=== PATIENT | female | born 2000 | race Caucasian/White ===

== ENCOUNTER 2024-01-10 10:53 | Emergency (ER) | payer MEDICARE, MEDICAID, SELFPAY ==
--- NOTE | ~2024-01-10 | US_ITS ---
Pelvic ultrasound. Clinical History: First trimester , pelvic pain, vaginal bleeding Technique: Realtime transabdominal and transvaginal scanning of the pelvis was performed. Color flow Doppler and Doppler spectral analysis were performed. Findings: The uterus is anteverted. The endometrial stripe has a thickness of 9 mm. There is a proba ble small intrauterine gestational sac, with estimated gestational age of 5 weeks [address] rage sac diameter of 0.47 cm. No well-defined pole or yolk sac seen.. The right ovary measures 2.7 x 1.7 x 2.3 cm. No significant right ovarian or adnexal mass is seen. The left ovary measures 2.3 x 1.3 x 1.6 cm. No significant left ovarian or adnexal mass is seen. There is no evidence of free fluid in the cul de sac. Impression: Early intrauterine gestational sac with estimated gestational age of 5 weeks 2 days, as detailed abov e. No visible pole, commensurate with the early gestational age. Reviewed, dictated and finalized at location . Impression: Early intrauterine gestational sac with estimated gestational age of 5 weeks 2 days, as detailed above. No visible pole, commensurate with the early ges tational age.
[2024-01-10 10:53] VITALS: BP 102/63; PULSE 68; RESP 14; TEMP 36.7; O2SAT 99
--- NOTE | 2024-01-10 11:25 | ED.ABDPAIN ---
HPI - Abdominal Pain General Chief Complaint: Abdominal Pain Stated Complaint: tt Time Seen by Provider: 01/10/24 11:04 History of Present Illness HPI narrative: 23 old female presents to the emergency department for evaluation for left upper quadrant pain and vaginal bleeding. Patient states she has a few weeks but has not yet had an ultrasound with . Patient states yesterday she was having a verbal altercation with her boyfriend and became emotionally upset. Patient states she had about 1 hour of vaginal bleeding yesterday but denies any current vaginal bleeding. Patient has left upper quadrant abdominal pain but denies any lower abdominal pain. Related Data Allergies Allergy/AdvReac Type Severity Reaction Status Date / Time No Known Allergies Allergy Verified 01/10/24 11:08 Review of Systems Review of Systems: All systems reviewed & are unremarkable except as noted in HPI and below Exam Narrative: APPEARANCE: Well appearing, no pain, no distress, well-nourished. HEAD: normocephalic, atraumatic. EYES: PERRLA/EOMI, conjunctivae clear. NOSE: Normal no drainage EARS:TMS clear with good light reflex. THROAT: Pharynx clear, no exudate. NECK: Supple. No adenopathy, no masses. RESPIRATORY: Airway patent, respirations nonlabored. Clear to auscultation bilaterally, no rales, rhonchi, wheezing. CARDIOVASCULAR: Regular rate and rhythm without murmurs rubs or gallops. ABDOMINAL: Soft, nontender, nondistended, normal bowel sounds MUSCULOSKELETAL: Moves all extremities. Strength/ROM intact, No edema, No calf tenderness. NEURO: Alert. Cranial nerves II through XII intact. Good gait. Good coordination SKIN: Warm, dry. Normal Color PSYCHIATRIC: Normal affect/mood. Course Vital Signs Vital signs: Vital Signs Temperature 98.1 F 01/10/24 10:53 Pulse Rate 68 01/10/24 10:53 Respiratory Rate 14 01/10/24 10:53 Blood Pressure 102/63 01/10/24 10:53 Pulse Oximetry 99 01/10/24 10:53 Oxygen Delivery Room Air 01/10/24 10:53 Temperature 98.1 F 01/10/24 10:53 Pulse Rate 80 01/10/24 12:54 Respiratory Rate 13 01/10/24 12:54 Blood Pressure 90/54 L 01/10/24 12:54 Pulse Oximetry 100 01/10/24 12:54 Oxygen Delivery Room Air 01/10/24 10:53 MDM - Abdominal Pain MDM Narrative Medical decision making narrative: 23-year-old female presented to the emergency department for evaluation for vaginal bleeding during early . Patient is approximately 5 weeks . Patient is afebrile but does have a leukocytosis of 13.5. Stable hemoglobin. Patient's blood type was A positive. UA was concerning for urinary tract infection and patient was started on Keflex. Differential Diagnosis Differential diagnosis: Likely endometriosis and other Lab Data Attestation: I reviewed the patient's lab results. 01/10/24 11:21 01/10/24 11:21 Labs: Lab Results 01/10/24 01/10/24 01/10/24 Range/Units 11:11 11:21 11:30 WBC 13.5 H (4.5-10.0) K/mm3 RBC 3.90 L (4.2-5.4) M/mm3 Hgb 13.1 (12.0-15.0) g/dL Hct 37.3 (37.0-47.0) % MCV 95.6 (80-100) fl MCH 33.6 (26-34) pg MCHC 35.1 (32-36) g/dl RDW 12.9 (11.5-14.5) % Plt Count 342 (150-375) k/mm3 MPV 9.3 (7.4-10.4) fl Immature Gran % (Auto) 0.4 (0-0.5) % Neut % (Auto) 86.0 H (45.5-73.1) % Lymph % (Auto) 7.3 L (18.3-44.2) % Dawes % (Auto) 5.7 (2.6-8.5) % Eos % (Auto) 0.3 (0-4.4) % Baso % (Auto) 0.3 (0.2-1.2) % Lymph # (Auto) 0.99 (0.9-3.2) K/mm3 Dawes # (Auto) 0.8 H (0.1-0.6) K/mm3 Eos # (Auto) 0.0 (0-0.3) K/mm3 Baso # (Auto) 0.0 (0.0-0.1) K/mm3 Abs Immat Gran (auto) 0.06 H (0.00-0.031) K/mm3 Absolute Neuts (auto) 11.6 H (1.3-6.7) K/mm3 Absolute Nucleated RBC 0.000 (0.0-0.012) K/mm3 Nucleated RBC % 0.0 (0.0-0.2) % Sodium 138 (137-145) mmol/L Potassium 3.0 L (3.4-5.0) mmol/L Chloride 104 (98
[2024-01-10] MEDS: ONDANSETRON INJ 4 MG/2 ML VIAL IV PUSH (11:27)
[2024-01-10] MEDS: SODIUM CHLORIDE 0.9% IV 1,000 ML 999 ML IV CONT (11:27)
[2024-01-10] MEDS: PANTOPRAZOLE SODIUM IV 40 MG VIAL IV PUSH (11:32)
[2024-01-10 11:36] LABS: Basophils Percent Auto 0.3 % (0.2-1.2); Eosinophils Percent Auto 0.3 % (0-4.4); Hematocrit 37.3 % (37.0-47.0); Hemoglobin 13.1 g/dL (12.0-15.0); Immature Granulocyte Absolute 0.06 K/mm3 (0.00-0.031); Immature Granulocyte Percent A 0.4 % (0-0.5); Lymphocytes Absolute Auto 0.99 K/mm3 (0.9-3.2); Lymphocytes Percent Auto 7.3 % (18.3-44.2); Mean Corpuscular HGB Conc 35.1 g/dl (32-36); Mean Corpuscular Hemoglobin 33.6 pg (26-34); Mean Corpuscular Volume 95.6 fl (80-100); Mean Platelet Volume 9.3 fl (7.4-10.4); Monocytes Absolute Auto 0.8 K/mm3 (0.1-0.6); Monocytes Percent Auto 5.7 % (2.6-8.5); Neutrophils Absolute Auto 11.6 K/mm3 (1.3-6.7); Platelet Count Result 342 k/mm3 (150-375); Red Cell Distribution Width 12.9 % (11.5-14.5); White Blood Count 13.5 K/mm3 (4.5-10.0)
[2024-01-10 11:41] LABS: Add Urine Microscopic? YES; Appearance Urine Turbid (Clear); Bacteria Urine 4+ /hpf; Bilirubin Urine 1+ (Negative); Blood Urine Trace (Negative); Color Urine Dark Yellow (Yellow); Glucose Urine UA Negative (Negative); Ketones Urine 3+ mg/dL (Negative); Leukocyte Esterase Ur Trace LEU/UL (Negative); Mucus Urine Present /lpf; Nitrate Urine Negative (Negative); Non Pathogenic Casts >20; Protein Urine 1+ mg/dL (Negative); RBC Urine 21-50 /hpf (0-2); Specific Grav Ur 1.033 (1.001-1.035); Squamous Epithelial Cell Urine Many /hpf (Few); WBC Urine 21-50 /hpf (0-3)
[2024-01-10 11:50] LABS: Alanine Aminotransferase 13 U/L (6-35); Albumin Level 4.9 g/dL (3.5-5.1); Alkaline Phosphatase 51 U/L (38-126); Anion Gap 15 mmol/L (4-12); Aspartate Amino Transferase 26 U/L (14-36); Blood Urea Nitrogen 12 mg/dL (7-17); Calcium 9.3 mg/dL (8.4-10.2); Carbon Dioxide 19 mmol/L (22-30); Chloride 104 mmol/L (98-107); Estimated Glomerular Filt Rate > 60; Glucose 95 mg/dL (65-110); Lactic Acid Reflex 1.6 mmol/L (0.7-2.0); Lipase 28 U/L (23-300); Sodium 138 mmol/L (137-145)
[2024-01-10 12:02] LABS: BEDSIDEPREGUCG Positive
[2024-01-10 12:54] VITALS: BP 90/54; PULSE 80; RESP 13; O2SAT 100
== END 2024-01-10 13:36 | disposition home or self-care (01) ==
PROVIDERS: Emergency Provider Emergency Medicine
DX: O20.9 Hemorrhage in early pregnancy, unspecified (principal); R82.998 Other abnormal findings in urine; Z3A.01 Less than 8 weeks gestation of pregnancy
CPT/HCPCS: 36415; 76801; 80053; 81001; 81025; 83605; 83690; 84702; 85025; 85461; 86850; 86900; 86901; 87086; 87088; 96361; 96374; 96375; 99284; J2405; J2470; J7030

== ENCOUNTER 2024-06-17 19:16 | Observation (INO) | payer MEDICARE, MEDICAID, SELFPAY ==
[2024-06-17] VITALS (27 sets, daily range): BP systolic 89–116; BP diastolic 45–70; PULSE 85–125; TEMP 37; O2SAT 97–100; BMI 21.7
--- OUTSIDE RECORDS SUMMARY | 2024-06-17 19:30 | XMS_ITS | CONTINUITY OF CARE DOCUMENT ---
Author Name lucio valdes Address Unknown Organization [facility] Address [address] [place] [address] Phone [phone] Care Team Providers Care Construction Inspector Name Role Phone Amparo Darden MD Unavailable Amparo Darden MD Unavailable INSURANCE PROVIDERS Payer name Policy type / Coverage type [place] red republican ID MED[place]ID [place] Medicaid [facility] Other [id number] [place] MEDICARE Medicare [id number]
--- NOTE | 2024-06-17 21:09 | OBADM ---
This patient, Roseann Mars, admitted to the OB room Labor/Delivery/Recovery 106 for observation. Patient/family oriented to hospital policies and general routines including ID bracelet, bed and alarms, visiting hours, pain management, procedures, bathroom and other care routines, personal items, smoking policy, room service/diet, and visiting hours. Patient/Family are encouraged to report perceived risks to care and to ask questions if they do not understand what they are told or what they should do.
[2024-06-17 21:10] LABS: Add Urine Microscopic? YES; Appearance Urine Clear (Clear); Bacteria Urine 1+ /hpf; Bilirubin Urine Negative (Negative); Blood Urine Negative (Negative); Color Urine Yellow (Yellow); Glucose Urine UA Negative (Negative); Ketones Urine 3+ mg/dL (Negative); Leukocyte Esterase Ur 1+ LEU/UL (Negative); Nitrate Urine Negative (Negative); Non Pathogenic Casts 0-2; Protein Urine Negative (Negative); RBC Urine 0-2 /hpf (0-2); Specific Grav Ur 1.011 (1.001-1.035); Squamous Epithelial Cell Urine Few /hpf (Few); Urobilinogen Urine 0.2 mg/dL (<2.0); pH Urine 6.5 (5.0-9.0)
[2024-06-17] MEDS: NITROFURANTOIN MONOHYD MACROCR 100 MG CAP PO (21:55)
[2024-06-17] MEDS: TERBUTALINE SULFATE 1 MG/ML VIAL 0.25 MG SUB-Q (21:56)
[2024-06-17] MEDS: LACTATED RINGERS 1,000 ML 125 ML IV CONT (21:57)
--- NOTE | 2024-07-21 21:16 | P.PNOB_ITS ---
OB - Triage/Final Diagnosis Visit Information Comments/Additional reasons for admission: I have assessed the risk for this patient, Roseann Mars, and determined that she would benefit from observation care. Evaluation Laboratory results: Laboratory Tests 06/17/24 20:58 Urine Color Yellow Urine Appearance Clear Urine pH 6.5 Ur Specific [place] 1.011 Urine Protein Negative Urine Glucose (UA) Negative Urine Ketones 3+ H Ur Blood (Man) Negative Urine Nitrate Negative Urine Bilirubin Negative Urine Urobilinogen 0.2 Leukocyte Esterase Rfl 1+ H Urine RBC 0-2 Urine WBC 6-10 H Ur Squamous Epith Cells Few Urine Bacteria 1+ H Urine Casts 0-2 Final Diagnosis (1) False labor: Code(s): O47.9 - False labor, unspecified Status: Acute
== END 2024-06-17 23:33 | disposition home or self-care (01) ==
PROVIDERS: Admitting Provider Obstetrics & Gynecology; Visit Provider Obstetrics & Gynecology
DX: O47.03 False labor before 37 completed weeks of gestation, third trimester (principal); Z3A.28 28 weeks gestation of pregnancy
CPT/HCPCS: 81001; 87086; 96372; A9270; G0378; G0379; J3105; J7120

== ENCOUNTER 2024-07-25 16:32 | Observation (INO) | payer MEDICARE, MEDICAID, SELFPAY ==
[2024-07-25] VITALS (53 sets, daily range): BP systolic 89–117; BP diastolic 44–72; PULSE 79–126; RESP 16; TEMP 36.5; O2SAT 93–99; BMI 20.6
[2024-07-25] MEDS: BETAMETHASONE SOD PHOS/ACETATE 30 MG/5 ML VIAL 12 MG IM (17:18)
[2024-07-25 17:28] LABS: Add Urine Microscopic? NO; Appearance Urine Clear (Clear); Bilirubin Urine Negative (Negative); Blood Urine Negative (Negative); Color Urine Yellow (Yellow); Glucose Urine UA Negative (Negative); Ketones Urine Negative (Negative); Leukocyte Esterase Ur Negative LEU/UL (Negative); Nitrate Urine Negative (Negative); Protein Urine Negative (Negative); Specific Grav Ur 1.009 (1.001-1.035); Urobilinogen Urine 0.2 mg/dL (<2.0)
--- NOTE | 2024-07-25 17:33 | OBADM ---
This patient, Roseann Mars, admitted to the OB room 117 for observation. Patient/family oriented to hospital policies and general routines including ID bracelet, bed and alarms, visiting hours, pain management, procedures, bathroom and other care routines, personal items, smoking policy, room service/diet, and visiting hours. Patient/Family are encouraged to report perceived risks to care and to ask questions if they do not understand what they are told or what they should do.
--- OUTSIDE RECORDS SUMMARY | 2024-07-25 17:36 | XMS_ITS | CONTINUITY OF CARE DOCUMENT ---
Author Name lucio valdes Address Unknown Organization [facility] Address [address] [place] [address] Phone [phone] Care Team Providers Care Behavioral Health Rn Name Role Phone Amparo Darden MD Unavailable [phone] Amparo Darden MD Unavailable [phone] INSURANCE PROVIDERS Payer name Policy type / Coverage type [place] red green party ID MED[place]ID [place] Medicaid [facility] Other [id number] [place] MED[place] Medicare [id number]
--- OUTSIDE RECORDS SUMMARY | 2024-07-25 17:36 | XMS_ITS | Continuity of Care Document ---
Author Organization [facility] Address [address] [place] [address] Assessment No assessment recorded. Plan of Treatment Reminders Order Date Submit Date Provider Last Modified By Organization Details Last Modified Time Details Appointments NST 2024 01:00P M NST SCHEDULE Not available Not available Not available U/S OB GROWTH 2024 01:30P M ULTRASOUND Not available Not available Not available FOLLOW UP 2024 02:00P Ulises DIANA MD Not available Not available Not available U/S OB BPP 2024 10:00A M ULTRASOUND Not available Not available Not available NST 2024 10:30A M NST SCHEDULE Not available Not available Not available OB ROUTINE 2024 11:00A Ulises DIANA MD Not available Not available Not available U/S OB BPP 2024 10:00A M ULTRASOUND Not available Not available Not available NST 2024 10:30A M NST SCHEDULE Not available Not available Not available OB ROUTINE 2024 11:00A Ulises DIANA MD Not available Not available Not available U/S OB BPP 2024 10:00A M ULTRASOUND Not available Not available Not available NST 2024 10:30A M NST SCHEDULE Not available Not available Not available OB ROUTINE 2024 11:00A Ulises DIANA MD Not available Not available Not available U/S OB BPP 2024 10:00A M ULTRASOUND Not available Not available Not available NST 2024 10:30A M NST SCHEDULE Not available Not available Not available OB ROUTINE 2024 11:00A M Candelaria DIANA MD Not available Not available Not available U/S OB BPP 2024 10:00A M ULTRASOUND Not available Not available Not available NST 2024 10:30A M NST SCHEDULE Not available Not available Not available OB ROUTINE 2024 11:00A M Candelaria DIANA MD Not available Not available Not available U/S OB BPP 2024 10:00A M ULTRASOUND Not available Not available Not available NST 2024 10:30A M NST SCHEDULE Not available Not available Not available OB ROUTINE 2024 11:00A Ulises DIANA MD Not available Not available Not available Lab None recorde d. Referral None recorde d. Procedures None recorde d. Surgeries None recorde d. Imaging non-str ess test 2024 025 [email or web address] [facility] [address], [place], [address], 07/25/2024 14:43:35 Medication Orders None recorde d. Patient TargetsNo targets recorded. Patient InstructionsNo instructions recorded. Reason for Referral None Reported. Results Created Date Observation Date Name Description Value Unit Range Abnormal Flag Note LastModifiedBy Organization Detail LastModifiedTime 05/02/20 24 05/02/2024 US, obste tric, 2nd or 3rd trime ster No observ ation record ed. [facility] [address], [place], [address], 05/02/2024 13:06:09 05/02/20 24 05/02/2024 US, obste tric, 2nd or 3rd trime ster No observ ation record ed. [email or web address] [address], [place], [address], 05/03/2024 09:25:25 06/18/19 25 06/18/2024 non-s tress test No observ ation record ed. [email or web address] [address], [place], [address], 06/19/2024 13:06:43 07/04/19 25 07/04/2024 US, obste tric, follo w-up No observ ation record ed. [email or web address] [facility] [address], [place], [address], 07/04/2024 12:07:16 07/04/19 25 07/04/2024 US, obste tric, follo w-up No observ ation record ed. [address], [place], [address], 07/05/2024 12:46:14 07/08/19 25 07/08/2024 non-s tress test No observ ation record ed. [address], [place], [address], 07/16/2024 15:52:02 07/10/19 25 07/10/2024 US, obste tric, bioph ysica l profi le + non-s tress test No observ ation record ed. [email or web address] [facility] [address], [place], [address], 07/10/2024 11:13:32 07/10/19 25 07/10/2024 US, obste tric, follo w-up No observ ation record ed. [email or web address] [address], [place], [address], 07/11/2024 09:31:09 07/12/19 25 07/10/2024 non-s tress test No observ ation record ed. [email or web address] [facility] [address], [place], [address], 07/12/2024 18:29:15 07/12/19 25 07/10/2024 non-s tress test No observ ation record ed. [email or web address] [facility] [address], [place], [address], 07/12/2024 18:29:51 07/19/19 25 07/18/2024 non-s tress test No observ ation record ed. [email or web address] [facility] [address], [place], [address], 07/18/2024 11:49:31 07/19/19 25 07/18/2024 US, obste tric, bioph ysica l profi le + non-s tress test No observ ation record ed. [email or web address] [facility] [address], [place], [address], 07/18/2024 15:30:06 07/19/19 25 07/18/2024 US, obste tric, follo w-up No observ ation record ed. [email or web address] [address], [place], [address], 07/19/2024 17:30:44 07/26/19 25 07/25/2024 non-s tress test No observ ation record ed. [email or web address] [facility] [address], [place], [address], 07/25/2024 14:39:24 07/26/19 25 07/25/2024 US, obste tric, bioph ysica l profi le + non-s tress test No observ ation record ed. [email or web address] [facility] [address], [place], [address], 07/25/2024 16:46:47 07/26/19 25 07/25/2024 US, obste tric, bioph ysica l profi le + non-s tress test No observ ation record ed. [email or web address] [address], [place], [address], 07/25/2024 15:13:46 Result Notes None recorded. Problems Name Problem SNOMED Code Status Onset Date Resolution Date Notes Provider Name and Address Organization Details Recorded Time 01625036 Active 2023 Sonia Brand null, [facility] 4 16:38:57 COVID-19 970512073 Active bASA daily, serial growth Olga Benitez null, [facility] 5 14:59:04 COVID-19 393294949 Active bASA daily, serial growth Olga Benitez null, [facility] 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 5 11:50:08 Problem Notes None recorded. Procedures Surgical History None recorded. Imaging Results Imaging Date Name Status LastModified by Organiz ation Details LastModified Time 07/25/2024 non-stress test completed [email or web address] [facility] [address], [place], [address], 07/25/2024 14:39:24 Procedure Notes None recorded. Medical Equipment None Reported. Allergies No known drug allergies Medications Name Sig Start Date Stop Date Status Note LastModified by Organization Details LastModified Time metronidazo le 0.75 % (37.5 mg/5 gram) vaginal gel Insert 1 applicato rful every day by vaginal route. 07/04 completed Not Available Not Available Not Available clobetasol 0.05 % topical cream APPLY A THIN LAYER TO THE AFFECTED AREA(S) BY TOPICAL ROUTE 2 TIMES PER DAY ; RUB IN GENTLY AND COMPLETEL Y 2024 active Not Available Not Available Not Avai lable ursodiol 300 mg capsule Take 1 capsule twice a day by oral route as directed. 2024 active Not Available Not Available Not Avai lable active Not Available Not Avai lable Not Available clobetasol 0.025 % topical cream APPLY A THIN LAYER TO THE AFFECTED AREA(S) BY TOPICAL ROUTE 2 TIMES PER DAY ; RUB IN GENTLY AND COMPLETEL Y 07/18 completed Not Available Not Available Not Available Vitals Date Recorded Body weight Systolic blood pressure Diastolic blood pressure Provider Name and Address Organization Details Last Updated DateTime 07/25/2024 54142.7149 2 g 99 mm[Hg] 65 mm[Hg] Sonia Brand [facility] 07/25/2024 15:27:05 Social History Question Answer Notes LastModified by Organizat ion Details LastModified Time Tobacco Smoking Status Current Every Day Smoker Sonia Brand [facility], [facility] 04/26/2024 16:36:49 What Is Your Level Of Alcohol Consumption? None Information not available 04/26/2024 Are You Blind Or Do You Have Difficulty Seeing? No Information not available 04/26/2024 What Is Your Level Of Caffeine Consumption? Occasional Information not available 04/26/2024 In The 14 Days Before Symptom Onset, Have You Had Close Contact With A Laboratory-confir med COVID-19 While That Case Was Ill? No Information not available 04/26/2024 In The 14 Days Before Symptom Onset, Have You Had Close Contact With A Person Who Is Under Investigation For COVID-19 While That Person Was Ill? No Information not available 04/26/2024 Have You Been To An Area Known To Be High Risk For COVID-19? No Information not available 04/26/2024 Are You Currently Employed? No Information not available 04/26/2024 Are You Deaf Or Do You Have Serious Difficulty Hearing? No Information not available 04/26/2024 What Is The Highest Grade Or Level Of School You Have Completed Or The Highest Degree You Have Received? [id number] Information not available 04/26/2024 Are There Any Guns Present In Your Home? No Information not available 04/26/2024 Do You Use Protection During Sex? No Information not available 04/26/2024 Do You Use Your Seat Belt Or Car Seat Routinely? Yes Information not available 04/26/2024 Are You Sexually Active? Yes Information not available 04/26/2024 Do You Have Smoke And Carbon Monoxide Detectors In Your Home? Yes Information not available 04/26/2024 Do You Feel Stressed (tense, Restless, Nervous, Or Anxious, Or Unable To Sleep At Night)? [id number] Information not available 04/26/2024 Do You Use Any Illicit Or Recreational Drugs? Yes Information not available 04/26/2024 Do You Use Sunscreen Routinely? No Information not available 04/26/2024 Sex: Unknown Functional Status Question Answer Note LastModified by Organizat ion Details LastModified Time Do you have difficulty walking or climbing stairs? No Information not available 04/26/2024 Are you able to walk? YESWOREST Information not available 04/26/2024 Are you able to care for yourself? Yes Information not available 04/26/2024 Do you have difficulty dressing or bathing? No Information not available 04/26/2024 Mental Status None recorded. Family History Relationship Description Onset Age of this Age Resolved Age Notes LastModified by Organization Details LastModified Time Father No current problems or disability Not available 04/26 16:36:33 Mother No current problems or disability Not available 04/26 16:36:34 Medical History Condition Response Allergies (Food, seasonal, environmental ) N Other N Breast Cancer N Drug/Latex Allergies/Reactions N Blood Transfusion N Dermatologic Disorders N Lung Disease N Defects or Inherited Disease N Breast Problem N Gestational Diabetes N Hematologic disorders N Anesthesia Complications N History of STI Y Deep Vein Thrombosis N Polycystic ovary syndrome N Anxiety Disorder N Autoimmune disease N Arthritis N Infertility N Polyps N Acid Reflux (GERD) N History of abnormal pap N Cancer N Stroke N Varicosities N Neurologic/Epilepsy N Endometriosis N High Cholesterol N Headaches N Fibromyalgia N Kidney Disease N Heart Problems N Kidney or Bladder Problems N Thyroid Problems N GI Problems N Eating Disorder N Anemia N Art (IVF or FET) N Psychiatric Illness N Ovarian Cancer N Diabetes N Pulmonary (TB, Asthma) N Hepatitis/Liver Disease N No Past Medical History N Eczema N Urinary Tract Infection N Abuse/Domestic Violence N Asthma N Trauma/Violence N Depression/ depression N Heart Disease N Pre-Eclampsia N Hypertension N Osteoporosis N Thrombophilias N Gynecological History Statement/Question Response Abnormal Pap N Flow Light Date of LMP 12/03/2023 Was last menstrual period normal Y STIs/STDs Y HPV Vaccine N Duration of Flow (days) 4 Current Control Method Are cycles usually normal Y Frequency of Cycle (Q days) 28 Sexually Active? Y Menses Monthly Y Age of first menstrual cycle 10 Date of Last Pap Smear Sexual Problems? N LMP Definite Obstetrics History GPAL:G 2 P 1 0 0 1 Type Value Full Term 1 Living 1 Total 2 Past Encounters Encounter ID Performer Location Encounter Start Date Encounter Closed Date Diagnosis/Indication Diagnosis SNOMED-CT Code Diagnosis ICD10 Code Diagnosis [facility] [id number] [facility] [address] [address] 07/04/2024 10:30:25 07/04/2024 11:08:26 condition affecting obstetrical care of mother 743582098 O35.3XX0 O36.5930 Z3A.30 [id number] Rupesh Diana MD [facility] [address] [address] 07/04/2024 10:30:51 07/04/2024 11:56:26 Polymorphic eruption of 3850832178 O26.86 [id number] LEXIE SILVA MD [facility] [address] [address] 07/10/2024 09:47:25 07/12/2024 07:36:38 Polymorphic eruption of 6739499623 O26.86 - concern for possible ICP due to itching distributi on- bile acids 10 last week, repeat today- repeat bile acids today- starting testing- start ursodiol Gestation period, 31 weeks 95998435 Z3A.31 [id number] LEXIE SILVA MD [facility] [address] [address] 07/10/2024 09:48:03 07/16/2024 03:54:15 Cholestasis of 864872387 O26.613 [id number] K[facility] [address] [address] 07/10/2024 09:48:28 07/10/2024 11:08:13 Cholestasis of 341001113 Z3A.31 [id number] [facility] [address] [address] 07/18/2024 10:52:30 07/18/2024 11:50:50 Cholestasis of 152791912 Z3A.31 [id number] [facility] [address] [address] 07/18/2024 10:53:20 07/18/2024 12:40:30 Cholestasis of 332422090 Z3A.31 Z3A.32 [id number] Rupesh Diana MD [facility] [address] [address] 07/18/2024 10:53:44 07/18/2024 13:19:02 Cholestasis of 705549271 Z3A.31 Z3A.32 [id number] [facility] [address] [address] 07/25/2024 13:55:22 07/25/2024 14:43:35 Cholestasis of 413666984 Z3A.31 Z3A.32 [id number] [facility] [address] [address] 07/25/2024 13:56:54 07/25/2024 15:11:18 Cholestasis of 285337258 O26.613 Z3A.33 [id number] Rupesh Diana MD [facility] [address] [address] 07/25/2024 14:02:42 07/25/2024 15:51:29 Routine care 808492070 Z34.92 Health Concerns Section Related Observation LastModified by Organization Detai ls LastModified Time None Recorded Concern Status LastModified by Organization Details LastModified Time None Recorded Payers Encounter Date Sequence Insurance Name Policy Number Policy Mclaughlin Covered Member ID Mclaughlin Member ID Guarantor Name 07/25/2024 1 [place] Roseann Mars [id number] Roseann Mars OBGyn Episode Ob Episode Information Episode Created Date Number of Fetuses Patient Bloodtype Patient rh Status Prepregnancy Weight lbs Domestic Partner Domestic Partner Phone Father Name Store Consultant Status 04/26/20 24 1 A Positive Fanny STamper OPEN Fetus Data First Name Last Name Admitted to NICU Weight (g) Sex Living Outcome Pediatric Complications Fetus ID Race Codes Race Delivery Type [id number] Problems Problem Notes 07/04 Bile acids 10 borderlin e symptomatic 07/10 Bile acids 4 wnl symptomatic Ursodiol 300mg BID Rpt 07/18 Problem Name Start Date End Date Resolution Snomed Code Not e Polymorphic eruption of 5947974666 Treated with topical steroid COVID-19 925676996 bASA daily , serial growth Justus Calculation Initial Justus Date Initial Exam Date Initial Exam Provider Initial Ultrasound Date Last Menstrual Period Date Ultra Sound Weeks Gestation 04/26/2024 02/22/2024 12/03/2023 11 Eighteen To Twenty Week Justus Update Ultra Sound Date Fundal Height At Umbil Quickening Date Ultra Sound Latest Weeks Gestation Final Justus Confirmed By Final Justus Confirmed Date Final Justus Date Ultra Sound Latest Days Gestation 0 [email or web address] 04/26/2024 09/08/19 25 0 Pre-kaya Flowsheet Flowsheet Date 04/26/2024 Mc Score Blood Edema Fundus Height Fundus Units Glucose Ketones Leukocytes Nitrite Labor Signs Protein Cervic Dilation Cervic Effacement Cervic Station Type Weight in lbs Pre/Post Dialysis Refused Weight 109.198067121030 BP Diastolic BP Location Tested BP Systolic BP Type 63 L arm 100 sitting Fetus Heart Rate Present A 159 Fetus Movement A Yes Comments this patient is a 23-year-ol d multiparous female at 12 weeks' gestation who presents for initial prenata care. She has a of term vaginal births. Her medical, surgical, obstetric history is unremarkable. She is vaccinated. She was given precautions recommendations for . We talked about vaccines in . Talked about care in detail. She is having genetic testing. She had a normal 12 week ultrasound. To begin routine care. Flowsheet Date 05/02/2024 Mc Score Blood Edema Fundus Height Fundus Units Glucose Ketones Leukocytes Nitrite Labor Signs Protein Cervic Dilation Cervic Effacement Cervic Station Type Weight in lbs Pre/Post Dialysis Refused BP Diastolic BP Location Tested BP Systolic BP Type Fetus Heart Rate Present Fetus Movement Comments Flowsheet Date 07/04/2024 Mc Score Blood Edema Fundus Height Fundus Units Glucose Ketones Leukocytes Nitrite Labor Signs Protein Cervic Dilation Cervic Effacement Cervic Station Type Weight in lbs Pre/Post Dialysis Refused BP Diastolic BP Location Tested BP Systolic BP Type Fetus Heart Rate Present Fetus Movement Comments Flowsheet Date 07/04/2024 Mc Score Blood Edema Fundus Height Fundus Units Glucose Ketones Leukocytes Nitrite Labor Signs Protein Cervic Dilation Cervic Effacement Cervic Station Type Weight in lbs Pre/Post Dialysis Refused 112.634651575856 BP Diastolic BP Location Tested BP Systolic BP Type 64 L arm 99 sitting Fetus Heart Rate Present A 145 Fetus Movement Comments Pruritic vesicular rash that started on her abdomen, likely polyps, rule out cholestasis, growth in the 12th percentile, debris growth in 3 weeks. Flowsheet Date 07/10/2024 Mc Score Blood Edema Fundus Height Fundus Units Glucose Ketones Leukocytes Nitrite Labor Signs Protein Cervic Dilation Cervic Effacement Cervic Station neg trace Type Weight in lbs Pre/Post Dialysis Refused Weight 112.883669057230 BP Diastolic BP Location Tested BP Systolic BP Type 73 L arm 107 sitting Fetus Heart Rate Present A 140 Fetus Movement A Yes Comments Patient c/o Harney Christy, s light swelling in feet. Patient reports worsening itching, including hands and soles of feet. Good movment. No strong contractions, no bleeding. Discussed bile acids at high-normal, LFTs wnl. Concern for possible ICP. Will start weekly testing, repeat labs today. Will start ursodiol. Patient voices understanding. RTC 1 week for testing. Flowsheet Date 07/10/2024 Mc Score Blood Edema Fundus Height Fundus Units Glucose Ketones Leukocytes Nitrite Labor Signs Protein Cervic Dilation Cervic Effacement Cervic Station Type Weight in lbs Pre/Post Dialysis Refused 112.523800476704 BP Diastolic BP Location Tested BP Systolic BP Type 73 107 Fetus Heart Rate Present Fetus Movement Comments Flowsheet Date 07/10/2024 Mc Score Blood Edema Fundus Height Fundus Units Glucose Ketones Leukocytes Nitrite Labor Signs Protein Cervic Dilation Cervic Effacement Cervic Station Type Weight in lbs Pre/Post Dialysis Refused BP Diastolic BP Location Tested BP Systolic BP Type Fetus Heart Rate Present Fetus Movement Comments Flowsheet Date 07/18/2024 Mc Score Blood Edema Fundus Height Fundus Units Glucose Ketones Leukocytes Nitrite Labor Signs Protein Cervic Dilation Cervic Effacement Cervic Station Type Weight in lbs Pre/Post Dialysis Refused BP Diastolic BP Location Tested BP Systolic BP Type Fetus Heart Rate Present Fetus Movement Comments Flowsheet Date 07/18/2024 Mc Score Blood Edema Fundus Height Fundus Units Glucose Ketones Leukocytes Nitrite Labor Signs Protein Cervic Dilation Cervic Effacement Cervic Station Type Weight in lbs Pre/Post Dialysis Refused BP Diastolic BP Location Tested BP Systolic BP Type Fetus Heart Rate Present Fetus Movement Comments Flowsheet Date 07/18/2024 Mc Score Blood Edema Fundus Height Fundus Units Glucose Ketones Leukocytes Nitrite Labor Signs Protein Cervic Dilation Cervic Effacement Cervic Station Type Weight in lbs Pre/Post Dialysis Refused Weight 115.225391239800 BP Diastolic BP Location Tested BP Systolic BP Type 71 L arm 103 sitting Fetus Heart Rate Present Fetus Movement A Yes Comments reassuring testing , Bpp, repeat bile acids and growth US is next week Flowsheet Date 07/25/2024 Mc Score Blood Edema Fundus Height Fundus Units Glucose Ketones Leukocytes Nitrite Labor Signs Protein Cervic Dilation Cervic Effacement Cervic Station Type Weight in lbs Pre/Post Dialysis Refused BP Diastolic BP Location Tested BP Systolic BP Type Fetus Heart Rate Present Fetus Movement Comments Flowsheet Date 07/25/2024 Mc Score Blood Edema Fundus Height Fundus Units Glucose Ketones Leukocytes Nitrite Labor Signs Protein Cervic Dilation Cervic Effacement Cervic Station Type Weight in lbs Pre/Post Dialysis Refused BP Diastolic BP Location Tested BP Systolic BP Type Fetus Heart Rate Present Fetus Movement Comments Flowsheet Date 07/25/2024 Mc Score Blood Edema Fundus Height Fundus Units Glucose Ketones Leukocytes Nitrite Labor Signs Protein Cervic Dilation Cervic Effacement Cervic Station Type Weight in lbs Pre/Post Dialysis Refused 116.00868059548 BP Diastolic BP Location Tested BP Systolic BP Type 65 L arm 99 sitting Fetus Heart Rate Present A 145 Fetus Movement A Yes Comments patient reports a lot of pre ssure and episodes of repetitive contractions that are painful. Cervical exam showed a very low presenting part. To receive steroids in labor and delivery today and tomorrow Menstrual History Last Menstrual Date Menses Monthly On Bcp Conception Prior Menses Frequency Hcg Plus Date Menarche Onset Age 0712/03/2023 Delivery Information Delivery Date Delivery Type Labor Anesthesia Weeks Gestation Incision Type Labor Labor Length Hrs Delivered By Post Complications Tubal Sterilization Discharge Date Comments Discharge Information Feeding Method Contraceptive Method Maternal HG B and HCT Levels
--- OUTSIDE RECORDS SUMMARY | 2024-07-25 17:36 | XMS_ITS | Continuity of Care Document ---
Author Organization [facility] Address [address] [place] [address] Assessment No assessment recorded. Plan of Treatment [...] recorde d. Surgeries None recorde d. Imaging US, obstetr ic, biophys ical profile + non-str ess test 2024 025 [facility], [address], [address], [place], [address], 07/25/2024 15:13:46 Medication Orders None recorde d. Patient TargetsNo targets recorded. Patient InstructionsNo instructions recorded. Reason for Referral None Reported. Results Created Date Observation Date Name Description Value Unit Range Abnormal Flag Note LastModifiedBy Organization Detail LastModifiedTime 05/02/20 24 05/02/2024 US, obste tric, 2nd or 3rd trime ster No observ ation record ed. [facility] [address], [place], [address], 05/02/2024 13:06:09 05/02/20 24 05/02/2024 US, obste tric, 2nd or 3rd trime ster No observ ation record ed. [address], [facility], [place], [address], 05/03/2024 09:25:25 06/18/19 25 06/18/2024 non-s tress test No observ ation record ed. [place] [id number] [facility] [address], [place], [address], 06/19/2024 13:06:43 07/04/19 25 07/04/2024 US, obste tric, follo w-up No observ ation record ed. [email or web address] [facility] [address], [place], [address], 07/04/2024 12:07:16 07/04/19 25 07/04/2024 US, obste tric, follo w-up No observ ation record ed. [email or web address] [address], [place], [address], 07/05/2024 12:46:14 07/08/19 25 07/08/2024 non-s tress test No observ ation record ed. [place] [id number] [facility] [address], [place], [address], 07/16/2024 15:52:02 07/10/19 25 07/10/2024 US, obste tric, bioph ysica l profi le + non-s tress test No observ ation record ed. [email or web address] [facility] [address], [place], [address], 07/10/2024 11:13:32 07/10/19 25 07/10/2024 US, obste tric, follo w-up No observ ation record ed. [email or web address] [address], [place], [address], 07/11/2024 09:31:09 07/12/19 25 07/10/2024 non-s tress test No observ ation record ed. [email or web address] [facility] [address], [place], [address], 07/12/2024 18:29:15 07/12/19 25 07/10/2024 non-s tress test No observ ation record ed. [email or web address] [facility] [address], [place], [address], 07/12/2024 18:29:51 07/19/19 25 07/18/2024 non-s tress test No observ ation record ed. [facility] [address], [place], [address], 07/18/2024 11:49:31 07/19/19 25 07/18/2024 US, obste tric, bioph ysica l profi le + non-s tress test No observ ation record ed. [email or web address] [facility] [address], [place], [address], 07/18/2024 15:30:06 07/19/19 25 07/18/2024 US, obste tric, follo w-up No observ ation record ed. [email or web address] [address], [place], [address], 07/19/2024 17:30:44 07/26/19 25 07/25/2024 non-s tress test No observ ation record ed. [email or web address] [facility] [address], [place], [address], 07/25/2024 14:39:24 07/26/19 25 07/25/2024 US, obste tric, bioph ysica l profi le + non-s tress test No observ ation record ed. [email or web address] [facility] [address], [place], [address], 07/25/2024 16:46:47 07/26/19 25 07/25/2024 US, obste tric, bioph ysica l profi le + non-s tress test No observ ation record ed. [email or web address], [place], [address], 07/25/2024 15:13:46 Result Notes None recorded. Problems Name Problem SNOMED Code Status Onset Date Resolution Date Notes Provider Name and Address Organization Details Recorded Time 82981061 Active 2023 Sonia Brand null, [facility] 4 16:38:57 COVID-19 217462940 Active bASA daily, serial growth Olga Benitez null, [facility] 5 14:59:04 COVID-19 130342051 Active bASA daily, serial growth Olga Benitez null, [facility] 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 5 11:50:08 Problem Notes None recorded. Procedures Surgical History None recorded. Imaging Results Imaging Date Name Status LastModified by Organiz ation Details LastModified Time 07/25/2024 US, obstetric, biophysical profile + non-stress test completed [facility] [address], [place], [address], 07/25/2024 16:46:47 Procedure Notes None recorded. Medical Equipment None [...] Address Organization Details Last Updated DateTime 07/25/2024 76036.7149 2 g 99 mm[Hg] 65 mm[Hg] Sonia Sunday [facility] 07/25/2024 15:27:05 Social History Question Answer Notes LastModified by Organizat ion Details LastModified Time Tobacco Smoking Status Current Every Day Smoker Sonia Sunday [facility] 04/26/2024 16:36:49 What Is Your Level [...] Or The Highest Degree You Have Received? [id number] Information not available 04/26/2024 Are There Any [...] Anxious, Or Unable To Sleep At Night)? [id number] Information not available 04/26/2024 Do You Use [...] SNOMED-CT Code Diagnosis ICD10 Code Diagnosis Note [id number] [facility] [address],[place] [address] 07/04/2024 10:30:25 07/04/2024 11:08:26 condition affecting obstetrical care of mother 985927012 O35.3XX0 O36.5930 Z3A.30 [id number] Rupesh Diana MD [facility] [address],[place] [address] 07/04/2024 10:30:51 07/04/2024 11:56:26 Polymorphic eruption of 5562544288 O26.86 [id number] LEXIE SILVA MD [facility] [address],[place] [address] 07/10/2024 09:47:25 07/12/2024 07:36:38 Polymorphic eruption of 8136555656 O26.86 - concern for possible ICP due to itching distributi on- bile acids 10 last week, repeat today- repeat bile acids today- starting testing- start ursodiol Gestation period, 31 weeks 09399487 Z3A.31 124952 LEXIE SILVA MD [facility] [address],[place] [address] 07/10/2024 09:48:03 07/16/2024 03:54:15 Cholestasis of 090357869 O26.613 844479 Kylah Kang [facility] [address],[place] [address] 07/10/2024 09:48:28 07/10/2024 11:08:13 Cholestasis of 484926357 Z3A.31 [id number] [facility] [address],[place] [address] 07/18/2024 10:52:30 07/18/2024 11:50:50 Cholestasis of 196082137 Z3A.31 [id number] [facility] [address],[place] [address] 07/18/2024 10:53:20 07/18/2024 12:40:30 Cholestasis of 695369023 Z3A.31 Z3A.32 446687 Rupesh Diana MD [facility] [address],[place] [address] 07/18/2024 10:53:44 07/18/2024 13:19:02 Cholestasis of 349515531 Z3A.31 Z3A.32 [id number] [facility] [address],[place] [address] 07/25/2024 13:55:22 07/25/2024 14:43:35 Cholestasis of 743245317 Z3A.31 Z3A.32 235019 [facility] [address],[place] [address] 07/25/2024 13:56:54 07/25/2024 15:11:18 Cholestasis of 430581190 O26.613 Z3A.33 [id number] Rupesh Diana MD [facility] [address],[place] [address] 07/25/2024 14:02:42 07/25/2024 15:51:29 Routine care 504331277 Z34.92 Health Concerns Section Related Observation LastModified by Organization Detai ls LastModified Time None Recorded Concern Status LastModified by Organization Details LastModified Time None Recorded Payers Encounter Date Sequence Insurance Name Policy Number Policy Mclaughlin Covered Member ID Mclaughlin Member ID Guarantor Name 07/25/2024 1 [place]ARE[place] Roseann Mars [id number] Roseann Mars OBGyn Episode Ob Episode Information Episode Created Date Number of Fetuses Patient Bloodtype Patient rh Status Prepregnancy Weight lbs Domestic Partner Domestic Partner Phone Father Name Cigarette Tipper Status 04/26/20 24 1 A Positive Fanny STamper OPEN Fetus Data First Name Last Name Admitted to NICU Weight (g) Sex Living Outcome Pediatric Complications Fetus ID Race Codes Race Delivery Type [id number] Problems Problem Notes 07/04 Bile acids 10 borderlin e symptomatic 07/10 Bile acids 4 wnl symptomatic Ursodiol 300mg BID Rpt 07/18 Problem Name Start Date End Date Resolution Snomed Code Not e Polymorphic eruption of 8647221568 Treated with topical steroid COVID-19 965240500 bASA daily , serial growth Jusuts Calculation Initial Justus Date Initial Exam Date [...] Weight in lbs Pre/Post Dialysis Refused Weight 109.008982870793 BP Diastolic BP Location Tested BP Systolic [...] Type Weight in lbs Pre/Post Dialysis Refused 112.470769359225 BP Diastolic BP Location Tested BP Systolic [...] Weight in lbs Pre/Post Dialysis Refused Weight 112.373189383564 BP Diastolic BP Location Tested BP Systolic BP Type 73 L arm 107 sitting Fetus Heart Rate Present A 140 Fetus Movement A Yes Comments Patient c/o [place]ata[place] Christy, s light swelling in feet. Patient [...] Type Weight in lbs Pre/Post Dialysis Refused 112.547531343262 BP Diastolic BP Location Tested BP Systolic [...] Weight in lbs Pre/Post Dialysis Refused Weight 115.782503911408 BP Diastolic BP Location Tested BP Systolic [...] Type Weight in lbs Pre/Post Dialysis Refused 116.78610452643 BP Diastolic BP Location Tested BP Systolic [...]
--- OUTSIDE RECORDS SUMMARY | 2024-07-25 17:37 | XMS_ITS | Continuity of Care Document ---
Author Organization [facility] Address [address] [place] [address] Assessment Encounter Date Assessment Date Assessment LastModified by Organization Details LastModified Time 07/25/2024 07/25/2024 Patient is ___weeks . Discussed plan. Not available 07/25/2024 15:26:19 Plan of Treatment Reminders Order Date Submit [...] recorde d. Surgeries None recorde d. Imaging None recorde d. Medication Orders None recorde d. Patient TargetsNo targets recorded. Patient InstructionsNo instructions recorded. Reason for Referral None Reported. Results Created Date Observation Date Name Description Value Unit Range Abnormal Flag Note LastModifiedBy Organization Detail LastModifiedTime 05/02/20 24 05/02/2024 US, obste tric, 2nd or 3rd trime ster No observ ation record ed. [facility] [address], [place], [address], 05/02/2024 13:06:09 05/02/20 24 05/02/2024 US, obste tric, 2nd or 3rd trime ster No observ ation record ed. [email or web address] [address], [facility], [place], [address], 05/03/2024 09:25:25 06/18/19 25 06/18/2024 non-s tress test No observ ation record ed. [address] [facility] [address], [place], [address], 06/19/2024 13:06:43 07/04/19 25 07/04/2024 US, obste tric, follo w-up No observ ation record ed. [email or web address] [facility] [address], [place], [address], 07/04/2024 12:07:16 07/04/19 25 07/04/2024 US, obste tric, follo w-up No observ ation record ed. [email or web address] [address], [place], [address], 07/05/2024 12:46:14 07/08/19 25 07/08/2024 non-s tress test No observ ation record ed. [place] [address], [place], [address], 07/16/2024 15:52:02 07/10/19 25 07/10/2024 US, nikole max, bioph ysica l profi le + non-s tress test No observ ation record ed. [email or web address] [facility] [address], [place], [address], 07/10/2024 11:13:32 07/10/19 25 07/10/2024 US, obste tric, follo w-up No observ ation record ed. [email or web address] [address], [place], [address], 07/11/2024 09:31:09 07/12/19 25 07/10/2024 non-s tress test No observ ation record ed. [email or web address] [facility] [address], [place], [address], 07/12/2024 18:29:15 07/12/19 25 07/10/2024 non-s tress test No observ ation record ed. [email or web address] [facility] [address], [place], [address], 07/12/2024 18:29:51 07/19/19 25 07/18/2024 non-s tress test No observ ation record ed. [email or web address] [facility] [address], [place], [address], 07/18/2024 11:49:31 07/19/19 25 07/18/2024 US, obste tric, bioph ysica l profi le + non-s tress test No observ ation record ed. [email or web address] [facility] [address], [place], [address], 07/18/2024 15:30:06 07/19/19 25 07/18/2024 US, obste tric, follo w-up No observ ation record ed. [email or web address] [address], [place], [address], 07/19/2024 17:30:44 07/26/19 25 07/25/2024 non-s tress test No observ ation record ed. [email or web address] [facility] [address], [place], [address], 07/25/2024 14:39:24 07/26/19 25 07/25/2024 US, obste tric, bioph ysica l profi le + non-s tress test No observ ation record ed. [email or web address] [facility] [address], [place], [address], 07/25/2024 16:46:47 07/26/19 25 07/25/2024 US, obste tric, bioph ysica l profi le + non-s tress test No observ ation record ed. [email or web address], [place], [address], 07/25/2024 15:13:46 Result Notes None recorded. Problems Name Problem SNOMED Code Status Onset Date Resolution Date Notes Provider Name and Address Organization Details Recorded Time 94777067 Active 2023 Sonia Raymonder null, [facility] 4 16:38:57 COVID-19 143038456 Active bASA daily, serial growth Olga Benitez null, [facility] 5 14:59:04 COVID-19 298674733 Active bASA daily, serial growth Olga Benitez null, [facility] 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 5 11:50:08 Problem Notes None recorded. Medical Equipment None Reported. [...] Address Organization Details Last Updated DateTime 07/25/2024 70478.7149 2 g 99 mm[Hg] 65 mm[Hg] Sonia Brand [facility] 07/25/2024 15:27:05 Social History Question Answer Notes LastModified by Organizat ion Details LastModified Time Tobacco Smoking Status Current Every Day Smoker Sonia Brand null, [facility] 04/26/2024 16:36:49 What Is Your [...] Or The Highest Degree You Have Received? PS18197-9 Information not available 04/26/2024 Are There Any [...] Anxious, Or Unable To Sleep At Night)? [id number] Information not available 04/26/2024 Do You Use [...] (Food, seasonal, environmental ) N Other N Blood Transfusion N Breast Cancer N Drug/Latex Allergies/Reactions N Lung Disease N Dermatologic Disorders N Defects or Inherited Disease N Breast Problem N Gestational Diabetes N Hematologic disorders N Anesthesia Complications N History of STI Y Deep Vein Thrombosis N Polycystic ovary syndrome N Anxiety Disorder N Autoimmune disease N Arthritis N Polyps N Infertility N History of abnormal pap N Acid Reflux (GERD) N Cancer N Varicosities N Stroke N Neurologic/Epilepsy N Endometriosis N High Cholesterol N Headaches N Fibromyalgia N Kidney Disease N Heart Problems N Thyroid Problems N Kidney or Bladder Problems N GI Problems N Eating Disorder [...] SNOMED-CT Code Diagnosis ICD10 Code Diagnosis Note [id number] [facility] [address] [address] 07/04/2024 10:30:25 07/04/2024 11:08:26 condition affecting obstetrical care of mother 829267299 O35.3XX0 O36.5930 Z3A.30 [id number] Rupesh Diana MD [facility] [address],[place] [address] 07/04/2024 10:30:51 07/04/2024 11:56:26 Polymorphic eruption of 1166594669 O26.86 199148 LEXIE SILVA MD [facility] [address],[place] [address] 07/10/2024 09:47:25 07/12/2024 07:36:38 Polymorphic eruption of 9371512033 O26.86 - concern for possible ICP due to itching distributi on- bile acids 10 last week, repeat today- repeat bile acids today- starting testing- start ursodiol Gestation period, 31 weeks 08109112 Z3A.31 564124 LEXIE SILVA MD [facility] [address],[place] [address] 07/10/2024 09:48:03 07/16/2024 03:54:15 Cholestasis of 137513357 O26.613 [id number] [facility] [address],[place] [address] 07/10/2024 09:48:28 07/10/2024 11:08:13 Cholestasis of 305006213 Z3A.31 368692 Bhavna Pedraza [facility] [address],[place] [address] 07/18/2024 10:52:30 07/18/2024 11:50:50 Cholestasis of 343317102 Z3A.31 380886 [facility] [address],[place] [address] 07/18/2024 10:53:20 07/18/2024 12:40:30 Cholestasis of 551977280 Z3A.31 Z3A.32 [id number] Rupesh Diana MD [facility] [address],[place] [address] 07/18/2024 10:53:44 07/18/2024 13:19:02 Cholestasis of 396877127 Z3A.31 Z3A.32 644855 Bhavna Pedraza [facility] [address],[place] [address] 07/25/2024 13:55:22 07/25/2024 14:43:35 Cholestasis of 175683169 Z3A.31 Z3A.32 [id number] [facility] [address],[place] [address] 07/25/2024 13:56:54 07/25/2024 15:11:18 Cholestasis of 207823351 O26.613 Z3A.33 368956 Rupesh Diana MD [facility] [address],[place] [address] 07/25/2024 14:02:42 07/25/2024 15:51:29 Routine care 545240810 Z34.92 Health Concerns Section Related Observation LastModified by Organization Detai ls LastModified Time None Recorded Concern Status LastModified by Organization Details LastModified Time None Recorded Payers Encounter Date Sequence Insurance Name Policy Number Policy Mclaughlin Covered Member ID Mclaughlin Member ID Guarantor Name 07/25/2024 1 [place] Roseann Mars [id number] Roseann Mars OBGyn Episode Ob Episode Information Episode Created Date Number of Fetuses Patient Bloodtype Patient rh Status Prepregnancy Weight lbs Domestic Partner Domestic Partner Phone Father Name Software Designer Status 04/26/20 24 1 A Positive Fanny STamper OPEN Fetus Data First Name Last Name Admitted to NICU Weight (g) Sex Living Outcome Pediatric Complications Fetus ID Race Codes Race Delivery Type [id number] Problems Problem Notes 07/04 Bile acids 10 borderlin e symptomatic 07/10 Bile acids 4 wnl symptomatic Ursodiol 300mg BID Rpt 07/18 Problem Name Start Date End Date Resolution Snomed Code Not e Polymorphic eruption of 0758806036 Treated with topical steroid COVID-19 282586939 bASA daily , serial growth Justus Calculation [...] Weight in lbs Pre/Post Dialysis Refused Weight 109.268276487344 BP Diastolic BP Location Tested BP Systolic [...] Type Weight in lbs Pre/Post Dialysis Refused 112.134328958017 BP Diastolic BP Location Tested BP Systolic [...] Weight in lbs Pre/Post Dialysis Refused Weight 112.270124868898 BP Diastolic BP Location Tested BP Systolic BP Type 73 L arm 107 sitting Fetus Heart Rate Present A 140 Fetus Movement A Yes Comments Patient c/o [employer] Christy, s light swelling in feet. Patient [...] Type Weight in lbs Pre/Post Dialysis Refused 112.888855442934 BP Diastolic BP Location Tested BP Systolic [...] Weight in lbs Pre/Post Dialysis Refused Weight 115.810714739960 BP Diastolic BP Location Tested BP Systolic [...] Type Weight in lbs Pre/Post Dialysis Refused 116.44605180898 BP Diastolic BP Location Tested BP Systolic [...]
--- OUTSIDE RECORDS SUMMARY | 2024-07-25 17:37 | XMS_ITS | Data Portability ---
Author Organization [facility] Address [address] [place] [address] Assessment Encounter Date Assessment Date Assessment LastModified [...] Not available FOLLOW UP 2024 02:00P Ulises THOMAS MD Not available Not available Not available U/S OB BPP 2024 10:00A M ULTRASOUND Not available Not available Not available NST 2024 10:30A M NST SCHEDULE Not available Not available Not available OB ROUTINE 2024 11:00A Ulises THOMAS MD Not available Not available Not available U/S OB BPP 2024 10:00A M ULTRASOUND Not available Not available Not available NST 2024 10:30A M NST SCHEDULE Not available Not available Not available OB ROUTINE 2024 11:00A Ulises THOMAS MD Not available Not available Not available U/S OB BPP 2024 10:00A M ULTRASOUND Not available Not available Not available NST 2024 10:30A M NST SCHEDULE Not available Not available Not available OB ROUTINE 2024 11:00A M Candelaria THOMAS MD Not available Not available Not available U/S OB BPP 2024 10:00A M ULTRASOUND Not available Not available Not available NST 2024 10:30A M NST SCHEDULE Not available Not available Not available OB ROUTINE 2024 11:00A M Candelaria THOMAS MD Not available Not available Not available U/S OB BPP 2024 10:00A M ULTRASOUND Not available Not available Not available NST 2024 10:30A M NST SCHEDULE Not available Not available Not available OB ROUTINE 2024 11:00A M Candelaria THOMAS MD Not available Not available Not available U/S OB BPP 2024 10:00A M ULTRASOUND Not available Not available Not available NST 2024 10:30A M NST SCHEDULE Not available Not available Not available OB ROUTINE 2024 11:00A M Candelaria THOMAS MD Not available Not available Not available Lab None recorde d. Referral None recorde d. Procedures None recorde d. Surgeries None recorde d. Imaging US, obstetr ic, biophys ical profile + non-str ess test 2024 025 [email or web address] [address], [address], [place], [address], 07/25/2024 15:13:46 non-str ess test 2024 025 [address], [address], [place], [address], 07/25/2024 14:43:35 US, obstetr ic, biophys ical profile + non-str ess test 2024 025 [email or web address] [address], [address], [place], [address], 07/18/2024 20:26:16 non-str ess test 2024 025 ramon [email or web address] [address], [address], [place], [address], 07/19/2024 07:47:31 Medication Orders None recorde d. Patient TargetsNo targets recorded. Patient InstructionsNo instructions recorded. Reason for Referral None Reported. Results Created Date Observation Date Name Description Value Unit Range Abnormal Flag Note LastModifiedBy Organization Detail LastModifiedTime 07/04/19 25 07/04/2024 CBC (HEMO GRAM) WBC 8.9 10'3/ uL 3.5-10 .5 Not Available [facility] (Lab) [address], [place], [address], 07/07/2024 23:58:41 07/04/19 25 07/04/2024 CBC (HEMO GRAM) RBC 3.35 10'6/ uL (based on docume nted legal sex) 3.80-5 .20 low Not Available [facility] (Lab) [address], [place], [address], 07/07/2024 23:58:41 07/04/19 25 07/04/2024 CBC (HEMO GRAM) HGB 10.9 g/dL (based on docume nted legal sex) 11.6-1 5.4 low Not Available [facility] (Lab) [address], [place], [address], 07/07/2024 23:58:41 07/04/19 25 07/04/2024 CBC (HEMO GRAM) HCT 33.5 % (based on docume nted legal sex) 34.0-4 5.0 low Not Available [facility] (Lab) [address] [place], [address], 07/07/2024 23:58:41 07/04/19 25 07/04/2024 CBC (HEMO GRAM) MCV 100.0 fL 80.0-9 9.0 high Not Available [facility] (Lab) [address] [place], [address], 07/07/2024 23:58:41 07/04/19 25 07/04/2024 CBC (HEMO GRAM) MCH 32.5 pg 27.0-3 4.0 Not Available [facility] (Lab) [address], [place], [address], 07/07/2024 23:58:41 07/04/19 25 07/04/2024 CBC (HEMO GRAM) MCHC 32.5 g/dL 32.0-3 5.5 Not Available [facility] (Lab) [address], [place], [address], 07/07/2024 23:58:41 07/04/19 25 07/04/2024 CBC (HEMO GRAM) RDW 12.7 % 11.0-1 5.0 Not Available [facility] (Lab) [address], [place], [address], 07/07/2024 23:58:41 07/04/19 25 07/04/2024 CBC (HEMO GRAM) plt 478 10'3/ uL 150-40 0 high Not Available [facility] (Lab) [address], [place], [address], 07/07/2024 23:58:41 07/04/19 25 07/04/2024 CBC (HEMO GRAM) MPV 9.7 fL 8.8-12 .1 Refer ence range s for nonbi nary/ inter sex or unspe cifie d gende r patie nts have not been estab lishe d. Pleas e refer to the [facility] wing table for range s estab lishe d for cisge nder patie nts and evalu ate in the clini safia casey xt of the indiv idual patie nt: https ://albertina brady book. nm.or g/gen derx Not Available [facility] (Lab) [address], [place], [address], 07/07/2024 23:58:41 07/04/19 25 07/04/2024 GTT - GESTA ALIYAH L ALEXA N, ACOG OB glucose, 1 hour screen 98 mg/dL 70-135 Not Available [facility] (Lab) [address], [place], [address], 07/07/2024 23:58:42 07/04/19 25 07/04/2024 CMP WITH BUN/C REAT RATIO sodium 136 mmol/ L 133-14 6 Not Available [facility] (Lab) [address], [place], [address], 07/07/2024 23:58:42 07/04/19 25 07/04/2024 CMP WITH BUN/C REAT RATIO potassium 3.5 mmol/ L 3.5-5. 1 Not Available [facility] (Lab) [address], [place], [address], 07/07/2024 23:58:42 07/04/19 25 07/04/2024 CMP WITH BUN/C REAT RATIO chloride 104 mmol/ L 98-107 Not Available [facility] (Lab) [address], [place], [address], 07/07/2024 23:58:42 07/04/19 25 07/04/2024 CMP WITH BUN/C REAT RATIO carbon dioxide 27 mmol/ L 21-31 Not Available [facility] (Lab) [address], [place], [address], 07/07/2024 23:58:42 07/04/19 25 07/04/2024 CMP WITH BUN/C REAT RATIO anion gap 5 mmol/ L 4-13 Not Available [facility] (Lab) [address] [place], [address], 07/07/2024 23:58:42 07/04/19 25 07/04/2024 CMP WITH BUN/C REAT RATIO blood urea nitrogen 8 mg/dL 7-25 Not Available [facility] (Lab) [address], [place], [address], 07/07/2024 23:58:42 07/04/19 25 07/04/2024 CMP WITH BUN/C REAT RATIO creatinine 0.41 mg/dL 0.60-1 .30 low Not Available [facility] (Lab) [address], [place], [address], 07/07/2024 23:58:42 07/04/19 25 07/04/2024 CMP WITH BUN/C REAT RATIO egfrcr (CKD-epi 2020) >90 mL/mi n/1.7 3_m2 >=60 Not Available [facility] (Lab) [address], [place], [address], 07/07/2024 23:58:42 07/04/19 25 07/04/2024 CMP WITH BUN/C REAT RATIO BUN/creatini ne ratio 19.5 . 10.0-2 2.0 Not Available [facility] (Lab) [address], [place], [address], 07/07/2024 23:58:42 07/04/19 25 07/04/2024 CMP WITH BUN/C REAT RATIO calcium 8.4 mg/dL 8.3-10 .5 Not Available [facility] (Lab) [address], [place], [address], 07/07/2024 23:58:42 07/04/19 25 07/04/2024 CMP WITH BUN/C REAT RATIO glucose 98 mg/dL 70-100 Not Available [facility] (Lab) [address], [place], [address], 07/07/2024 23:58:42 07/04/19 25 07/04/2024 CMP WITH BUN/C REAT RATIO protein, total 6.3 g/dL 6.4-8. 3 low Not Available [facility] (Lab) [address], [place], [address], 07/07/2024 23:58:42 07/04/19 25 07/04/2024 CMP WITH BUN/C REAT RATIO albumin 3.3 g/dL 3.5-5. 0 low Not Available [facility] (Lab) [address], [place], [address], 07/07/2024 23:58:42 07/04/19 25 07/04/2024 CMP WITH BUN/C REAT RATIO ALT 22 units /L 9-43 Not Available [facility] (Lab) [address], [place], [address], 07/07/2024 23:58:42 07/04/19 25 07/04/2024 CMP WITH BUN/C REAT RATIO alkaline phosphatase 99 units /L 34-104 Not Available [facility] (Lab) [address], [place], [address], 07/07/2024 23:58:42 07/04/19 25 07/04/2024 CMP WITH BUN/C REAT RATIO AST 27 units /L 13-39 Not Available [facility] (Lab) [address] [place], [address], 07/07/2024 23:58:42 07/04/19 25 07/04/2024 CMP WITH BUN/C REAT RATIO bilirubin, total 0.3 mg/dL 0.2-1. 2 Not Available [facility] (Lab) [address] [place], [address], 07/07/2024 23:58:42 07/04/19 25 07/04/2024 BILE ACIDS , TOTAL bile acids, total 10 umol/ L 0-10 Test Perfo rmed by: Carmelo Veronica [facility] [address] [address] Not Available [facility] (Lab) [address] [place], [address], 07/07/2024 23:58:42 07/10/19 25 07/10/2024 CBC (HEMO GRAM) WBC 7.9 10'3/ uL 3.5-10 .5 Not Available [facility] (Lab) [address] [place], [address], 07/11/2024 19:03:59 07/10/1907/10/2024 CBC (HEMO GRAM) RBC 3.23 10'6/ uL (based on docume nted legal sex) 3.80-5 .20 low Not Available [facility] (Lab) [address], [place], [address], 07/11/2024 19:03:59 07/10/1907/10/2024 CBC (HEMO GRAM) HGB 10.5 g/dL (based on docume nted legal sex) 11.6-1 5.4 low Not Available [facility] (Lab) [address], [place], [address], 07/11/2024 19:03:59 07/10/1907/10/2024 CBC (HEMO GRAM) HCT 31.5 % (based on docume nted legal sex) 34.0-4 5.0 low Not Available [facility] (Lab) [address], [place], [address], 07/11/2024 19:03:59 07/10/1907/10/2024 CBC (HEMO GRAM) MCV 97.5 fL 80.0-9 9.0 Not Available [facility] (Lab) [address] [place], [address], 07/11/2024 19:03:59 07/10/1907/10/2024 CBC (HEMO GRAM) MCH 32.5 pg 27.0-3 4.0 Not Available [facility] (Lab) [address], [place], [address], 07/11/2024 19:03:59 07/10/19 25 07/10/2024 CBC (HEMO GRAM) MCHC 33.3 g/dL 32.0-3 5.5 Not Available [facility] (Lab) [address] [place], [address], 07/11/2024 19:03:59 02/26/20 25 07/10/2024 CBC (HEMO GRAM) RDW 12.7 % 11.0-1 5.0 Not Available [facility] (Lab) [address], [place], [address], 07/11/2024 19:03:59 07/10/19 25 07/10/2024 CBC (HEMO GRAM) plt 437 10'3/ uL 150-40 0 high Not Available [facility] (Lab) [address], [place], [address], 07/11/2024 19:03:59 07/10/19 25 07/10/2024 CBC (HEMO GRAM) MPV 9.7 fL 8.8-12 .1 Refer ence range s for nonbi nary/ inter sex or unspe cifie d gende r patie nts have not been estab lishe d. Pleas e refer [facility] for range s estab lishe d for cisge nder patie nts and evalu ate in the clini safia casey xt of the indiv idual patie nt: https ://la bhand book. nm.or g/gen derx Not Available [facility] (Lab) [address], [place], [address], 07/11/2024 19:03:59 07/10/19 25 07/10/2024 CMP WITH BUN/C REAT RATIO sodium 139 mmol/ L 133-14 6 Not Available [facility] (Lab) [address], [place], [address], 07/11/2024 19:03:59 07/10/19 25 07/10/2024 CMP WITH BUN/C REAT RATIO potassium 3.9 mmol/ L 3.5-5. 1 Not Available [facility] (Lab) [address], [place], [address], 07/11/2024 19:03:59 07/10/19 25 07/10/2024 CMP WITH BUN/C REAT RATIO chloride 104 mmol/ L 98-107 Not Available [facility] (Lab) [address], [place], [address], 07/11/2024 19:03:59 07/10/19 25 07/10/2024 CMP WITH BUN/C REAT RATIO carbon dioxide 24 mmol/ L 21-31 Not Available [facility] (Lab) [address], [place], [address], 07/11/2024 19:03:59 07/10/19 25 07/10/2024 CMP WITH BUN/C REAT RATIO anion gap 11 mmol/ L 4-13 Not Available [facility] (Lab) [address], [place], [address], 07/11/2024 19:03:59 07/10/19 25 07/10/2024 CMP WITH BUN/C REAT RATIO blood urea nitrogen 6 mg/dL 7-25 low Not Available [facility] (Lab) [address], [place], [address], 07/11/2024 19:03:59 07/10/19 25 07/10/2024 CMP WITH BUN/C REAT RATIO creatinine 0.45 mg/dL 0.60-1 .30 low Not Available [facility] (Lab) [address], [place], [address], 07/11/2024 19:03:59 07/10/19 25 07/10/2024 CMP WITH BUN/C REAT RATIO egfrcr (CKD-epi 2020) >90 mL/mi n/1.7 3_m2 >=60 Not Available [facility] (Lab) [address], [place], [address], 07/11/2024 19:03:59 07/10/19 25 07/10/2024 CMP WITH BUN/C REAT RATIO BUN/creatini ne ratio 13.3 . 10.0-2 2.0 Not Available [facility] (Lab) [address], [place], [address], 07/11/2024 19:03:59 07/10/19 25 07/10/2024 CMP WITH BUN/C REAT RATIO calcium 8.4 mg/dL 8.3-10 .5 Not Available [facility] (Lab) [address], [place], [address], 07/11/2024 19:03:59 07/10/19 25 07/10/2024 CMP WITH BUN/C REAT RATIO glucose 98 mg/dL 70-100 Not Available [facility] (Lab) [address], [place], [address], 07/11/2024 19:03:59 07/10/19 25 07/10/2024 CMP WITH BUN/C REAT RATIO protein, total 6.2 g/dL 6.4-8. 3 low Not Available [facility] (Lab) [address] [place], [address], 07/11/2024 19:03:59 07/10/19 25 07/10/2024 CMP WITH BUN/C REAT RATIO albumin 3.4 g/dL 3.5-5. 0 low Not Available [facility] (Lab) [address] [place], [address], 07/11/2024 19:03:59 07/10/19 25 07/10/2024 CMP WITH BUN/C REAT RATIO ALT 15 units /L 9-43 Not Available [facility] (Lab) [address] [place], [address], 07/11/2024 19:03:59 07/10/19 25 07/10/2024 CMP WITH BUN/C REAT RATIO alkaline phosphatase 95 units /L 34-104 Not Available [facility] (Lab) [address] [place], [address], 07/11/2024 19:03:59 07/10/19 25 07/10/2024 CMP WITH BUN/C REAT RATIO AST 16 units /L 13-39 Not Available [facility] (Lab) [address] [place], [address], 07/11/2024 19:03:59 07/10/19 25 07/10/2024 CMP WITH BUN/C REAT RATIO bilirubin, total 0.4 mg/dL 0.2-1. 2 Not Available [facility] (Lab) [address], [place], [address], 07/11/2024 19:03:59 07/10/19 25 07/10/2024 BILE ACIDS , TOTAL bile acids, total 4 umol/ L 0-10 Test Perfo rmed by: Carmelo Veronica iajoshua [address] [address] Not Available [facility] (Lab) [address], [place], [address], 07/11/2024 19:04:00 07/19/19 25 07/18/2024 CMP(C OMPRE HENSI VE METAB OLIC PANEL ) sodium 137 mmol/ L 133-14 6 Not Available [facility] (Lab) [address], [place], [address], 07/19/2024 10:04:14 07/19/19 25 07/18/2024 CMP(C OMPRE HENSI VE METAB OLIC PANEL ) potassium 3.9 mmol/ L 3.5-5. 1 Not Available [facility] (Lab) [address] [place], [address], 07/19/2024 10:04:14 07/19/19 25 07/18/2024 CMP(C OMPRE HENSI VE METAB OLIC PANEL ) chloride 103 mmol/ L 98-107 Not Available [facility] (Lab) [address] [place], [address], 07/19/2024 10:04:14 07/19/19 25 07/18/2024 CMP(C OMPRE HENSI VE METAB OLIC PANEL ) carbon dioxide 27 mmol/ L 21-31 Not Available [facility] (Lab) [address] [place], [address], 07/19/2024 10:04:14 07/19/19 25 07/18/2024 CMP(C OMPRE HENSI VE METAB OLIC PANEL ) anion gap 7 mmol/ L 4-13 Not Available [facility] (Lab) [address], [place], [address], 07/19/2024 10:04:14 07/19/19 25 07/18/2024 CMP(C OMPRE HENSI VE METAB OLIC PANEL ) blood urea nitrogen 9 mg/dL 7-25 Not Available [facility] (Lab) [address], [place], [address], 07/19/2024 10:04:14 07/19/19 25 07/18/2024 CMP(C OMPRE HENSI VE METAB OLIC PANEL ) creatinine 0.45 mg/dL 0.60-1 .30 low Not Available [facility] (Lab) [address], [place], [address], 07/19/2024 10:04:14 07/19/19 25 07/18/2024 CMP(C OMPRE HENSI VE METAB OLIC PANEL ) egfrcr (CKD-epi 2020) >90 mL/mi n/1.7 3_m2 >=60 Not Available [facility] (Lab) [address], [place], [address], 07/19/2024 10:04:14 07/19/19 25 07/18/2024 CMP(C OMPRE HENSI VE METAB OLIC PANEL ) calcium 9.0 mg/dL 8.3-10 .5 Not Available [facility] (Lab) [address], [place], [address], 07/19/2024 10:04:14 07/19/19 25 07/18/2024 CMP(C OMPRE HENSI VE METAB OLIC PANEL ) glucose 73 mg/dL 70-100 Not Available [facility] (Lab) [address] [place], [address], 07/19/2024 10:04:14 07/19/19 25 07/18/2024 CMP(C OMPRE HENSI VE METAB OLIC PANEL ) protein, total 5.8 g/dL 6.4-8. 3 low Not Available [facility] (Lab) [address], [place], [address], 07/19/2024 10:04:14 07/19/19 25 07/18/2024 CMP(C OMPRE HENSI VE METAB OLIC PANEL ) albumin 3.3 g/dL 3.5-5. 0 low Not Available [facility] (Lab) [address], [place], [address], 07/19/2024 10:04:14 07/19/19 25 07/18/2024 CMP(C OMPRE HENSI VE METAB OLIC PANEL ) ALT 8 units /L 9-43 low Not Available [facility] (Lab) [address], [place], [address], 07/19/2024 10:04:14 07/19/19 25 07/18/2024 CMP(C OMPRE HENSI VE METAB OLIC PANEL ) alkaline phosphatase 100 units /L 34-104 Not Available [facility] (Lab) [address], [place], [address], 07/19/2024 10:04:14 07/19/19 25 07/18/2024 CMP(C OMPRE HENSI VE METAB OLIC PANEL ) AST 13 units /L 13-39 Not Available [facility] (Lab) [address], [place], [address], 07/19/2024 10:04:14 07/19/19 25 07/18/2024 CMP(C OMPRE HENSI VE METAB OLIC PANEL ) bilirubin, total 0.3 mg/dL 0.2-1. 2 Not Available [facility] (Lab) [address] [place], [address], 07/19/2024 10:04:14 07/19/19 25 07/18/2024 BILE ACIDS , TOTAL bile acids, total 7 umol/ L 0-10 Test Perfo rmed by: Carmelo sheldon [facility] [address] [address] Not Available [facility] (Lab) [address], [place], [address], 07/19/2024 10:04:14 07/04/19 25 07/04/2024 US, obste tric, follo w-up No observ ation record ed. [email or web address] [address], [place], [address], 07/04/2024 12:07:16 07/04/19 25 07/04/2024 US, obste tric, follo w-up No observ ation record ed. [email or web address] [address], [place], [address], 07/05/2024 12:46:14 07/08/19 25 07/08/2024 non-s tress test No observ ation record ed. [address], [place], [address], 07/16/2024 15:52:02 07/10/19 25 07/10/2024 US, obste tric, bioph ysica l profi le + non-s tress test No observ ation record ed. [email or web address] [address], [place], [address], 07/10/2024 11:13:32 07/10/19 25 07/10/2024 US, obste tric, follo w-up No observ ation record ed. [email or web address] [address], [place], [address], 07/11/2024 09:31:09 07/12/19 25 07/10/2024 non-s tress test No observ ation record ed. [email or web address] [address], [place], [address], 07/12/2024 18:29:15 07/12/19 25 07/10/2024 non-s tress test No observ ation record ed. [email or web address] [address], [place], [address], 07/12/2024 18:29:51 07/19/19 25 07/18/2024 non-s tress test No observ ation record ed. [email or web address] [address], [place], [address], 07/18/2024 11:49:31 07/19/19 25 07/18/2024 US, obste tric, bioph ysica l profi le + non-s tress test No observ ation record ed. [email or web address] [address], [place], [address], 07/18/2024 15:30:06 07/19/19 25 07/18/2024 US, obste tric, follo w-up No observ ation record ed. [email or web address] [address], [place], [address], 07/19/2024 17:30:44 07/26/19 25 07/25/2024 non-s tress test No observ ation record ed. [email or web address] [address], [place], [address], 07/25/2024 14:39:24 07/26/19 25 07/25/2024 US, obste tric, bioph ysica l profi le + non-s tress test No observ ation record ed. [email or web address] [address], [place], [address], 07/25/2024 16:46:47 07/26/19 25 07/25/2024 US, obste tric, bioph ysica l profi le + non-s tress test No observ ation record ed. [email or web address], [place], [address], 07/25/2024 15:13:46 Result Notes None recorded. Problems Name Problem SNOMED Code Status Onset Date Resolution Date Notes Provider Name and Address Organization Details Recorded Time 32439878 Active 2023 Sonia Brand null, [facility] 4 16:38:57 COVID-19 253740772 Active [facility] daily, serial growth Olga Benitez [facility], [facility] 5 14:59:04 COVID-19 072355249 Active bASA daily, serial growth Olga Benitez [facility], [facility] 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 5 11:50:08 Problem Notes None recorded. Procedures Surgical History None recorded. Imaging Results Imaging Date Name Status LastModified by Organiz ation Details LastModified Time 07/04/2024 US, obstetric, follow-up completed [email or web address] [address], [place], [address], 07/04/2024 12:07:16 07/04/2024 US, obstetric, follow-up completed [email or web address] [address], [place], [address], 07/05/2024 12:46:14 07/08/2024 non-stress test completed [place] [address], [place], [address], 07/16/2024 15:52:02 07/10/2024 US, obstetric, biophysical profile + non-stress test completed [email or web address] [address], [place], [address], 07/10/2024 11:13:32 07/10/2024 US, obstetric, follow-up completed [address], [place], [address], 07/11/2024 09:31:09 07/10/2024 non-stress test completed [email or web address] [address], [place], [address], 07/12/2024 18:29:15 07/10/2024 non-stress test completed [email or web address] [address], [place], [address], 07/12/2024 18:29:51 07/18/2024 non-stress test completed [email or web address], [place], [address], 07/18/2024 11:49:31 07/18/2024 US, obstetric, biophysical profile + non-stress test completed [email or web address] [address], [place], [address], 07/18/2024 15:30:06 07/18/2024 US, obstetric, follow-up completed [email or web address] [address], [place], [address], 07/19/2024 17:30:44 07/25/2024 non-stress test completed [email or web address], [place], [address], 07/25/2024 14:39:24 07/25/2024 US, obstetric, biophysical profile + non-stress test completed [address], [place], [address], 07/25/2024 16:46:47 07/25/2024 US, obstetric, biophysical profile + non-stress test active [id number] [address], [place], [address], 07/25/2024 15:13:46 Procedure Notes None recorded. Medical Equipment None [...] Available Not Available Vitals Date Recorded Body height Body mass index (BMI) Body weight Systolic blood pressure Diastolic blood pressure Provider Name and Address Organization Details Last Updated DateTime 07/18/2024 162.56 cm 19.7 kg/m2 00363.12 g 103 mm[Hg] 71 mm[Hg] Sonia Brand [facility] 12:47:39 Date Recorded Body weight Systolic blood pressure Diastolic blood pressure Provider Name and Address Organization Details Last Updated DateTime 07/25/2024 49042.7149 2 g 99 mm[Hg] 65 mm[Hg] Sonia Brand [facility] 07/25/2024 15:27:05 Social History Question Answer Notes LastModified by Organizat ion Details LastModified Time Tobacco Smoking Status Current Every Day Smoker Sonia Brand [facility] 04/26/2024 16:36:49 What Is Your Level [...] Or The Highest Degree You Have Received? [id number] Information not available 04/26/2024 Are There Any [...] Anxious, Or Unable To Sleep At Night)? [id number] Information not available 04/26/2024 Do You Use [...] SNOMED-CT Code Diagnosis ICD10 Code Diagnosis Note [id number] [facility] [address],[place] [address] 02/22/2024 09:46:25 02/22/2024 10:30:52 screening 786443284 Z36.82 Z36.87 Z3A.11 [id number] Rupesh Thomas MD [facility] [address],[place] [address] 04/26/2024 15:51:28 04/29/2024 08:15:48 Routine care [id number] Z34.92 [id number] [facility] [address],[place] [address] 05/02/2024 11:44:52 05/02/2024 12:58:33 screening for malformation 166209169 Z36.3 Z3A.21 [id number] [place] [address] [address],[place] [address] 07/04/2024 10:30:25 07/04/2024 11:08:26 condition affecting obstetrical care of mother [id number] O35.3XX0 O36.5930 Z3A.30 [id number] Rupesh Thomas MD [facility] [address],[place] [address] 07/04/2024 10:30:51 07/04/2024 11:56:26 Polymorphic eruption of [id number] O26.86 [id number] LEXIE SILVA MD [facility] [address],[place] [address] 07/10/2024 09:47:25 07/12/2024 07:36:38 Polymorphic eruption of [id number] O26.86 - concern for possible ICP due to itching distributi on- bile acids 10 last week, repeat today- repeat bile acids today- starting testing- start ursodiol Gestation period, 31 weeks [id number] Z3A.31 [id number] LEXIE SILVA MD [facility] [address],[place] [address] 07/10/2024 09:48:03 07/16/2024 03:54:15 Cholestasis of [id number] O26.613 [id number] [facility] [address],[place] [address] 07/10/2024 09:48:28 07/10/2024 11:08:13 Cholestasis of [id number] Z3A.31 [id number] [facility] [address],[place] [address] 07/18/2024 10:52:30 07/18/2024 11:50:50 Cholestasis of [id number] Z3A.31 [id number] [facility] [address],[place] [address] 07/18/2024 10:53:20 07/18/2024 12:40:30 Cholestasis of [id number] Z3A.31 Z3A.32 [id number] Rupesh Thomas MD [facility] [address],[place] [address] 1 07/18/2024 10:53:44 07/18/2024 13:19:02 Cholestasis of [id number] Z3A.31 Z3A.32 [id number] [facility] [address],[place] [address] 1 07/25/2024 13:55:22 07/25/2024 14:43:35 Cholestasis of [id number] Z3A.31 Z3A.32 [id number] [facility] [address],[place] [address] 1 07/25/2024 13:56:54 07/25/2024 15:11:18 Cholestasis of [id number] O26.613 Z3A.33 [id number] Rupesh Thomas MD [facility] [address],[place] [address] 1 07/25/2024 14:02:42 07/25/2024 15:51:29 Routine care [id number] Z34.92 Health Concerns Section Related Observation LastModified by Organization Detai ls LastModified Time None Recorded Concern Status LastModified by Organization Details LastModified Time None Recorded Advance Directives Directive None Recorded Payers Encounter Date Sequence Insurance Name Policy Number Policy Mclaughlin Covered Member ID Mclaughlin Member ID Guarantor Name 07/18/2024 1 [place] Roseann Praterenson [id number] Roseann Mars 07/18/2024 1 [place] Roseann E Mars [id number] 9 Roseann Mars 07/25/2024 1 [place] Roseann E Mars [id number] 9 Roseann Mars 07/25/2024 1 [place] Roseann Agnes PraterMars [id number] 9 Roseann Mars 07/25/2024 1 [place] Roseann Agnes PraterMars [id number] Roseann Mars OBGyn Episode Ob Episode Information Episode Created Date Number of Fetuses Patient Bloodtype Patient rh Status Prepregnancy Weight lbs Domestic Partner Domestic Partner Phone Father Name Search Marketing Specialist Status 04/26/20 24 1 A Positive Fanny STamper OPEN Fetus Data First Name Last Name Admitted to NICU Weight (g) Sex Living Outcome Pediatric Complications Fetus ID Race Codes Race Delivery Type [id number] Problems Problem Notes 07/04 Bile acids 10 borderlin e symptomatic 07/10 Bile acids 4 wnl symptomatic Ursodiol 300mg BID Rpt 07/18 Problem Name Start Date End Date Resolution Snomed Code Not e Polymorphic eruption of [id number] Treated with topical steroid COVID-19 [id number] bASA daily , serial growth Justus Calculation [...] Gestation 0 [email or web address] 04/26/2024 09/08/19 25 0 Pre- Flowsheet Flowsheet Date 04/26/2024 Mc Score Blood Edema Fundus Height Fundus Units Glucose Ketones Leukocytes Nitrite Labor Signs Protein Cervic Dilation Cervic Effacement Cervic Station Type Weight in lbs Pre/Post Dialysis Refused Weight 109.829026856297 BP Diastolic BP Location Tested BP Systolic [...] Type Weight in lbs Pre/Post Dialysis Refused 112.137064774246 BP Diastolic BP Location Tested BP Systolic [...] Weight in lbs Pre/Post Dialysis Refused Weight 112.622416606400 BP Diastolic BP Location Tested BP Systolic BP Type 73 L arm 107 sitting Fetus Heart Rate Present A 140 Fetus Movement A Yes Comments Patient c/o Sarles Christy, s light swelling in feet. Patient [...] Type Weight in lbs Pre/Post Dialysis Refused 112.861874231114 BP Diastolic BP Location Tested BP Systolic [...] Weight in lbs Pre/Post Dialysis Refused Weight 115.887927042370 BP Diastolic BP Location Tested BP Systolic [...] Type Weight in lbs Pre/Post Dialysis Refused 116.06902067608 BP Diastolic BP Location Tested BP Systolic [...] Method Maternal HG B and HCT Levels Ob Episode Information Episode Created Date Number of Fetuses Patient Bloodtype Patient rh Status Prepregnancy Weight lbs Domestic Partner Domestic Partner Phone Father Name Search Marketing Specialist Status 04/26/20 24 1 CLOSED Fetus Data First Name Last Name Admitted to NICU Weight (g) Sex Living Outcome Pediatric Complications Fetus ID Race Codes Race Delivery Type F Full Term [id number] Vaginal Delivery Justus Calculation Initial Justus Date Initial Exam Date Initial Exam Provider Initial Ultrasound Date Last Menstrual Period Date Ultra Sound Weeks Gestation 0 Eighteen To Twenty Week Justus Update Ultra Sound Date Fundal Height At Umbil Quickening Date Ultra Sound Latest Weeks Gestation Final Justus Confirmed By Final Justus Confirmed Date Final Justus Date Ultra Sound Latest Days Gestation 0 0 Menstrual History Last Menstrual Date Menses Monthly On Bcp Conception Prior Menses Frequency Hcg Plus Date Menarche Onset Age Delivery Information Delivery Date Delivery Type Labor Anesthesia Weeks Gestation Incision Type Labor Labor Length Hrs Delivered By Post Complications Tubal Sterilization Discharge Date Comments 0 39 unsure o f weight Discharge Information Feeding Method Contraceptive Method Maternal HG B and HCT Levels
[2024-07-25] MEDS: NIFEdipine 30 MG TAB.ER.24 PO ×2 (18:17→22:01)
--- NOTE | 2024-07-25 21:44 | PC.NURSE ---
This RN notified Dr. Thomas of contractions still occurring at this time. New orders received to give Procardia and terbutaline at this time.
[2024-07-25] MEDS: TERBUTALINE SULFATE 1 MG/ML VIAL 0.25 MG SUB-Q (21:59)
--- NOTE | 2024-07-25 23:53 | PC.NURSE ---
Dr. Thomas notified that patient has had 10-11 contractions in 50 minutes and that patient is still feeling them as well. New orders received to do a SVE at this time and recheck. New orders received to give terbutaline up to three doses. Orders confirmed.
[2024-07-26] VITALS (115 sets, daily range): BP systolic 85–138; BP diastolic 52–70; PULSE 82–131; RESP 16; TEMP 36.6; O2SAT 89–100
[2024-07-26] MEDS: TERBUTALINE SULFATE 1 MG/ML VIAL 0.25 MG SUB-Q ×2 (00:08→05:00)
--- NOTE | 2024-07-26 07:36 | PM.IMHP ---
H&P: HPI History of Present Illness Date/Time: 07/26/24 07:36 Chief Complaint: contractions Narrative: This patient is a 24-year-old multiparous female with a history of delivery. She is 33 weeks and 6 days gestation. She was admitted yesterday for observation and treatment of pre term contractions. She was treated with Procardia and terbutaline. Her contractions have diminished in strength and frequency over time. She just received her 1st dose of steroids. She will have her 2nd day. She at this time she has a low frequency of contractions with mild intensity. She would like to be discharged and return for steroids. She is given. Detailed precautions on labor. She had a fairly quick delivery of a 34 week gestation previously. She presented at 8 cm. Currently she her cervix is closed. Review of Systems Review of Systems: All systems reviewed & are unremarkable except as noted in HPI and below Constitutional: Constitutional: Denies chills, Denies fatigue, Denies fever(s) and Denies weakness Eyes: Eyes: Denies blurry vision, Denies change in vision, Denies loss of peripheral vision, Denies loss of vision, Denies other visual disturbances and Denies eye pain ENT: Denies vertigo, Denies dizziness, Denies hearing loss, Denies mouth pain, Denies nasal obstruction, Denies neck mass and Denies neck pain Cardiovascular: Cardiovascular: Denies chest pain, Denies diaphoresis, Denies syncope, Denies leg edema and Denies dyspnea Respiratory: Respiratory: Denies chest congestion, Denies cough, Denies hemoptysis, Denies dyspnea and Denies wheezing Gastrointestinal: Gastrointestinal: Denies abdominal pain, Denies constipation, Denies diarrhea, Denies nausea and Denies vomiting Genitourinary: Genitourinary: Denies hematuria, Denies change in libido, Denies nocturia, Denies genital lesions, Denies flank pain and Denies urinary urgency Musculoskeletal: Musculoskeletal: Denies abnormal gait, Denies back pain, Denies myalgias, Denies arthralgias, Denies joint swelling, Denies muscle weakness and Denies neck pain Integumentary/Breasts: Skin/Breast: Denies swelling, Denies breast pain, Denies breast mass, Denies dry skin, Denies nipple discharge, Denies unusual bruising and Denies jaundice Neurologic: Denies Neuro-related abnormal movements, Denies Abnormal speech present, Denies abnormal gait, Denies behavioral changes, Denies confusion, Denies vertigo, Denies dizziness, Denies syncope, Denies loss of vision, Denies memory loss, Denies convulsions and Denies weakness Psychiatric: Psychiatric: Denies abnormal sleep pattern, Denies behavioral changes, Denies change in libido, Denies confusion, Denies depression, Denies anhedonia and Denies memory loss Endocrine: Endocrine: Reports no additional endocrine complaints, Denies change in libido and Denies fatigue Hematologic/Lymphatic: Hematologic/Lymphatic: Reports no additional hematologic/lymphatic complaints Allergic/Immunologic: Allergic/Immunologic: Reports no additional allergic/immunologic complaints and Denies wheezing Meds Home Medications and Allergies Home Medications ?Medication ?Instructions ?Recorded ?Confirmed ?Type nitrofurantoin 100 mg PO Q12H 7 days #14 caps 06/17/24 07/25/24 Rx monohydrate/macrocrystals 100 mg capsule (Macrobid) vit no.95-ferrous 1 tablet PO DAILY 06/17/24 07/25/24 History fumarate 28 mg-folic acid 800 mcg tablet () acetaminophen 325 mg tablet 325 mg PO Q6H PRN headache 07/25/24 07/25/24 History (Aminofen) ursodiol 300 mg capsule 300 mg PO Q12H 07/25/24 07/25/24 History Allergies Allergy/AdvReac Type Severity Reaction Status Date / Time No Known Allergies Allergy Verified 07/25/24 17:28 Vital Signs Vital Signs - 24 hr 07/25/24 17:02 07/25/24 17:15 07/25/24 17:16 Temperature 97.7 F Pulse Rate 92 111 H Respiratory Rate 16 Blood Pressure 104/63 105/58 L Pulse Oximetry Oxygen Delivery 07/25/24 17:26 07/25/24 17:30 07/25/24 17:45 Temperature Pulse Rate 90 87 Respiratory Rate Blood Pressure 102/63 101/60 Pulse Oximetry Oxygen Delivery Room Air 07/25/24 18:00 07/25/24 18:15 07/25/24 18:30 Temperature Pulse Rate 101 H 91 88 Respiratory Rate Blood Pressure 112/65 108/66 103/63 Pulse Oximetry Oxygen Delivery 07/25/24 18:45 07/25/24 19:00 07/25/24 19:15 Temperature Pulse Rate 87 93 83 Respiratory Rate Blood Pressure 109/72 110/67 104/58 L Pulse Oximetry Oxygen Delivery 07/25/24 19:30 07/25/24 19:45 07/25/24 20:00 Temperature Pulse Rate 85 80 96 Respiratory Rate Blood Pressure 100/66 89/53 L 100/58 L Pulse Oximetry Oxygen Delivery 07/25/24 20:15 07/25/24 20:31 07/25/24 20:54 Temperature Pulse Rate 81 79 89 Respiratory Rate Blood Pressure 105/62 101/67 108/69 Pulse Oximetry Oxygen Delivery 07/25/24 21:00 07/25/24 21:15 07/25/24 21:30 Temperature Pulse Rate 93 83 85 Respiratory Rate Blood Pressure 109/65 108/67 105/67 Pulse Oximetry Oxygen Delivery 07/25/24 21:45 07/25/24 22:01 07/25/24 22:02 Temperature Pulse Rate 81 81 Respiratory Rate Blood Pressure 117/71 99/44 L Pulse Oximetry 96 Oxygen Delivery 07/25/24 22:07 07/25/24 22:12 07/25/24 22:15 Temperature Pulse Rate 103 H Respiratory Rate Blood Pressure 102/60 Pulse Oximetry 98 97 Oxygen Delivery 07/25/24 22:17 07/25/24 22:22 07/25/24 22:27 Temperature Pulse Rate Respiratory Rate Blood Pressure Pulse Oximetry 97 99 98 Oxygen Delivery 07/25/24 22:30 07/25/24 22:32 07/25/24 22:37 Temperature Pulse Rate 105 H Respiratory Rate Blood Pressure 111/58 L Pulse Oximetry 97 96 Oxygen Delivery 07/25/24 22:42 07/25/24 22:45 07/25/24 22:47 Temperature Pulse Rate 120 H Respiratory Rate Blood Pressure 109/49 L Pulse Oximetry 95 99 Oxygen Delivery 07/25/24 22:52 07/25/24 22:57 07/25/24 23:00 Temperature Pulse Rate 107 H Respiratory Rate Blood Pressure 114/66 Pulse Oximetry 98 95 Oxygen Delivery 07/25/24 23:02 07/25/24 23:07 07/25/24 23:12 Temperature Pulse Rate Respiratory Rate Blood Pressure Pulse Oximetry 95 95 95 Oxygen Delivery 07/25/24 23:15 07/25/24 23:17 07/25/24 23:22 Temperature Pulse Rate 103 H Respiratory Rate Blood Pressure 114/60 Pulse Oximetry 94 94 Oxygen Delivery 07/25/24 23:27 07/25/24 23:30 07/25/24 23:32 Temperature Pulse Rate 113 H Respiratory Rate Blood Pressure 113/61 Pulse Oximetry 94 94 Oxygen Delivery 07/25/24 23:37 07/25/24 23:42 07/25/24 23:45 Temperature Pulse Rate 114 H Respiratory Rate Blood Pressure 115/67 Pulse Oximetry 93 94 Oxygen Delivery 07/25/24 23:47 07/25/24 23:52 07/25/24 23:57 Temperature Pulse Rate Respiratory Rate Blood Pressure Pulse Oximetry 93 94 93 Oxygen Delivery 07/26/24 00:00 07/26/24 00:02 07/26/24 00:07 Temperature Pulse Rate 107 H Respiratory Rate Blood Pressure 109/62 Pulse Oximetry 95 94 Oxygen Delivery 07/26/24 00:12 07/26/24 00:15 07/26/24 00:17 Temperature Pulse Rate 115 H Respiratory Rate Blood Pressure 112/64 Pulse Oximetry 96 98 Oxygen Delivery 07/26/24 00:22 07/26/24 00:27 07/26/24 00:30 Temperature Pulse Rate 121 H Respiratory Rate Blood Pressure 111/61 Pulse Oximetry 98 99 Oxygen Delivery 07/26/24 00:32 07/26/24 00:37 07/26/24 00:42 Temperature Pulse Rate Respiratory Rate Blood Pressure Pulse Oximetry 98 98 98 Oxygen Delivery 07/26/24 00:45 07/26/24 00:50 07/26/24 00:55 Temperature Pulse Rate 116 H Respiratory Rate Blood Pressure 109/60 Pulse Oximetry 89 L 97 Oxygen Delivery 07/26/24 01:00 07/26/24 01:05 07/26/24 01:10 Temperature Pulse Rate 122 H Respiratory Rate Blood Pressure 113/59 L Pulse Oximetry 94 93 92 Oxygen Delivery 07/26/24 01:15 07/26/24 01:20 07/26/24 01:25 Temperature Pulse Rate 123 H Respiratory Rate Blood Pressure 97/54 L Pulse Oximetry 95 93 93 Oxygen Delivery 07/26/24 01:30 07/26/24 01:35 07/26/24 01:40 Temperature Pulse Rate 108 H Respiratory Rate Blood Pressure 102/59 L Pulse Oximetry 93 93 93 Oxygen Delivery 07/26/24 01:45 07/26/24 01:50 07/26/24 01:55 Temperature Pulse Rate 106 H Respiratory Rate Blood Pressure 101/54 L Pulse Oximetry 93 93 93 Oxygen Delivery 07/26/24 02:00 07/26/24 02:05 07/26/24 02:10 Temperature Pulse Rate 101 H Respiratory Rate Blood Pressure 100/53 L Pulse Oximetry 93 94 94 Oxygen Delivery 07/26/24 02:15 07/26/24 02:20 07/26/24 02:25 Temperature Pulse Rate 101 H Respiratory Rate Blood Pressure 111/63 Pulse Oximetry 94 94 94 Oxygen Delivery 07/26/24 02:30 07/26/24 02:35 07/26/24 02:40 Temperature Pulse Rate 105 H Respiratory Rate Blood Pressure 110/70 Pulse Oximetry 94 95 97 Oxygen Delivery 07/26/24 02:45 07/26/24 02:50 07/26/24 02:55 Temperature Pulse Rate 110 H Respiratory Rate Blood Pressure 85/63 L Pulse Oximetry 99 98 99 Oxygen Delivery 07/26/24 03:00 07/26/24 03:05 07/26/24 03:10 Temperature Pulse Rate 99 Respiratory Rate Blood Pressure 98/64 L Pulse Oximetry 99 98 98 Oxygen Delivery 07/26/24 03:15 07/26/24 03:20 07/26/24 03:25 Temperature Pulse Rate 114 H Respiratory Rate Blood Pressure 92/63 L Pulse Oximetry 99 100 99 Oxygen Delivery 07/26/24 03:30 07/26/24 03:35 07/26/24 03:40 Temperature Pulse Rate 117 H Respiratory Rate Blood Pressure 105/60 Pulse Oximetry 98 97 95 Oxygen Delivery 07/26/24 03:45 07/26/24 03:50 07/26/24 03:55 Temperature Pulse Rate 103 H Respiratory Rate Blood Pressure 110/59 L Pulse Oximetry 95 94 95 Oxygen Delivery 07/26/24 04:00 07/26/24 04:05 07/26/24 04:10 Temperature Pulse Rate 112 H Respiratory Rate Blood Pressure 106/57 L Pulse Oximetry 94 94 93 Oxygen Delivery 07/26/24 04:15 07/26/24 04:18 07/26/24 04:23 Temperature Pulse Rate 104 H Respiratory Rate Blood Pressure 100/55 L Pulse Oximetry 95 90 97 Oxygen Delivery 07/26/24 04:28 07/26/24 04:30 07/26/24 04:33 Temperature Pulse Rate 110 H Respiratory Rate Blood Pressure 103/62 Pulse Oximetry 96 96 Oxygen Delivery 07/26/24 04:38 07/26/24 04:43 07/26/24 04:45 Temperature Pulse Rate 109 H Respiratory Rate Blood Pressure 101/59 L Pulse Oximetry 97 96 Oxygen Delivery 07/26/24 04:48 07/26/24 04:53 07/26/24 04:58 Temperature Pulse Rate Respiratory Rate Blood Pressure Pulse Oximetry 96 97 96 Oxygen Delivery 07/26/24 05:00 07/26/24 05:03 07/26/24 05:08 Temperature Pulse Rate 101 H Respiratory Rate Blood Pressure 113/62 Pulse Oximetry 99 99 Oxygen Delivery 07/26/24 05:13 07/26/24 05:15 07/26/24 05:18 Temperature Pulse Rate 112 H Respiratory Rate Blood Pressure 95/52 L Pulse Oximetry 98 98 Oxygen Delivery 07/26/24 05:23 07/26/24 05:28 07/26/24 05:30 Temperature 98 F Pulse Rate 120 H Respiratory Rate Blood Pressure 125/65 Pulse Oximetry 100 100 Oxygen Delivery 07/26/24 05:33 07/26/24 05:36 07/26/24 05:41 Temperature Pulse Rate Respiratory Rate Blood Pressure Pulse Oximetry 99 97 97 Oxygen Delivery 07/26/24 05:45 07/26/24 05:46 07/26/24 05:51 Temperature Pulse Rate 112 H Respiratory Rate Blood Pressure 106/63 Pulse Oximetry 97 96 Oxygen Delivery 07/26/24 05:56 07/26/24 06:00 07/26/24 06:01 Temperature Pulse Rate 125 H Respiratory Rate Blood Pressure 95/59 L Pulse Oximetry 96 96 Oxygen Delivery 07/26/24 06:06 07/26/24 06:11 07/26/24 06:15 Temperature Pulse Rate 112 H Respiratory Rate Blood Pressure 128/61 Pulse Oximetry 97 95 Oxygen Delivery 07/26/24 06:16 07/26/24 06:21 07/26/24 06:26 Temperature Pulse Rate Respiratory Rate Blood Pressure Pulse Oximetry 96 97 96 Oxygen Delivery 07/26/24 06:30 07/26/24 06:31 07/26/24 06:35 Temperature 97.9 F Pulse Rate 104 H Respiratory Rate 16 Blood Pressure 96/55 L Pulse Oximetry 96 Oxygen Delivery 07/26/24 06:36 07/26/24 06:41 07/26/24 06:46 Temperature Pulse Rate Respiratory Rate Blood Pressure Pulse Oximetry 97 96 98 Oxygen Delivery 07/26/24 06:51 07/26/24 06:56 07/26/24 07:00 Temperature Pulse Rate 115 H Respiratory Rate Blood Pressure 94/60 L Pulse Oximetry 98 98 Oxygen Delivery 07/26/24 07:01 07/26/24 07:06 07/26/24 07:11 Temperature Pulse Rate Respiratory Rate Blood Pressure Pulse Oximetry 97 98 99 Oxygen Delivery 07/26/24 07:16 07/26/24 07:21 07/26/24 07:26 Temperature Pulse Rate Respiratory Rate Blood Pressure Pulse Oximetry 97 98 98 Oxygen Delivery 07/26/24 07:31 07/26/24 07:36 Temperature Pulse Rate Respiratory Rate Blood Pressure Pulse Oximetry 98 98 Oxygen Delivery Exam Const: General: cooperative, healthy appearing, comfortable and no acute distress Orientation/consciousness: oriented to person, oriented to place and oriented to time HENMT: Head: normal to inspection Ears: external ears normal Face/Nose/Sinus: Normal external nose present and normal facial exam Face and sinus: normal facial exam Eyes: General: appearance normal, both eyes and all related structures Neck: Neck: normal visual inspection, trachea midline and supple Resp: Auscultation: clear to auscultation bilaterally, no crackles, no rales, no rhonchi and no wheezes Cardio: Rate: regular rate Rhythm: regular rhythm Heart sounds: no click, no murmurs and no rubs GI: GI Palp: No abdominal tenderness, No Soft to palpation, No Tenderness to palpation present (GI) and No Palpable mass present Auscultation: normal bowel sounds Skin: General skin exam: normal color and no rashes or lesions noted Neuro: General: oriented to person, oriented to place and oriented to time Extrem: General: normal to inspection, no joint enlargement, no clubbing, cyanosis or edema, no pedal edema and no calf tenderness Psych: Appearance: grossly normal Mental Status: mental status grossly normal Speech and movement: Normal speech and movement present H&P: Results Labs Labs: Urine 07/25/24 Range/Units 17:17 Urine Color Yellow (Yellow) Urine Appearance Clear (Clear) Urine pH 7.0 (5.0-9.0) Ur Specific [place] 1.009 (1.001-1.035) Urine Protein Negative (Negative) mg/dL Urine Glucose (UA) Negative (Negative) mg/dL Assessment and Plan Assessment and plan (1) History of delivery: Code(s): Z87.51 - Personal history of pre-term labor Status: Acute (2) contractions: Code(s): O47.00 - False labor before 37 completed weeks of gestation, unspecified trimester Status: Acute Assessment and Plan: This patient is a 24-year-old multiparous female with a history of delivery. She is 33 weeks and 6 days gestation. She was admitted yesterday for observation and treatment of pre term contractions. She was treated with Procardia and terbutaline. Her contractions have diminished in strength and frequency over time. She just received her 1st dose of steroids. She will have her 2nd day. She at this time she has a low frequency of contractions with mild intensity. She would like to be discharged and return for steroids. She is given. Detailed precautions on labor. She had a fairly quick delivery of a 34 week gestation previously. She presented at 8 cm. Currently she her cervix is closed.
[2024-07-26] MEDS: NIFEdipine 30 MG TAB.ER.24 60 MG PO (08:14)
--- NOTE | 2024-07-26 08:34 | PC.NURSE ---
Pt waiting for her ride.
--- NOTE | 2024-07-26 09:35 | PC.NURSE ---
Still waiting for ride. Pt declines any increase in her contractions.
== END 2024-07-26 11:21 | disposition home or self-care (01) ==
PROVIDERS: Admitting Provider Obstetrics & Gynecology; Visit Provider Obstetrics & Gynecology
DX: O47.03 False labor before 37 completed weeks of gestation, third trimester (principal); Z3A.33 33 weeks gestation of pregnancy; Z87.51 Personal history of pre-term labor
CPT/HCPCS: 81003; 87081; 96372; A9270; G0378; G0379; J0702; J3105

== ENCOUNTER 2024-07-26 18:20 | Observation (INO) | payer MEDICARE, MEDICAID, SELFPAY ==
[2024-07-26] VITALS (14 sets, daily range): BP systolic 85–117; BP diastolic 43–68; PULSE 89–114; BMI 20.5
--- OUTSIDE RECORDS SUMMARY | 2024-07-26 18:32 | XMS_ITS | CONTINUITY OF CARE DOCUMENT ---
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
--- OUTSIDE RECORDS SUMMARY | 2024-07-26 18:32 | XMS_ITS | Continuity of Care Document ---
Author Organization [facility] Address [address] [place] [address] Assessment No assessment recorded. Plan of Treatment Reminders Order Date Submit Date Provider Last Modified By Organization Details Last Modified Time Details Appointments U/S OB BPP 2024 10:00A M ULTRASOUND [...] d. Imaging non-str ess test 2024 025 ramon ar3 [facility], [address], [address], [place], [address], 07/26/2024 03:26:37 Medication Orders None recorde d. Patient TargetsNo targets recorded. Patient InstructionsNo instructions recorded. Reason for Referral None Reported. Results Created Date Observation Date Name Description Value Unit Range Abnormal Flag Note LastModifiedBy Organization Detail LastModifiedTime 05/02/20 24 05/02/2024 US, obste tric, 2nd or 3rd trime ster No observ ation record ed. [facility] [address], [place], [address], 05/02/2024 13:06:09 05/02/20 24 05/02/2024 US, obste tric, 2nd or 3rd trime ster No observ ation record ed. [email or web address] [address], [place], [address], 05/03/2024 09:25:25 06/18/19 25 06/18/2024 non-s tress test No observ ation record ed. [address], [place], [address], 06/19/2024 13:06:43 07/04/19 25 07/04/2024 US, obste tric, follo w-up No observ ation record ed. [email or web address] [facility] [address], [place], [address], 07/04/2024 12:07:16 07/04/19 25 07/04/2024 US, obste tric, follo w-up No observ ation record ed. [email or web address] [address], [place], [address], 07/05/2024 12:46:14 07/08/19 25 07/08/2024 non-s tress test No observ ation record ed. [address], [place], [address], 07/16/2024 15:52:02 07/10/19 25 07/10/2024 US, nikole max, bioph ysica l profi le + non-s tress test No observ ation record ed. [email or web address] [facility] [address], [place], [address], 07/10/2024 11:13:32 07/10/19 25 07/10/2024 US, obste tric, follo w-up No observ ation record ed. [address], [place], [address], 07/11/2024 09:31:09 07/12/19 25 07/10/2024 non-s tress test No observ ation record ed. [email or web address] [facility] [address], [place], [address], 07/12/2024 18:29:15 07/12/19 25 07/10/2024 non-s tress test No observ ation record ed. [facility] [address], [place], [address], 07/12/2024 18:29:51 07/19/19 25 07/18/2024 non-s tress test No observ ation record ed. [email or web address] [facility] [address], [place], [address], 07/18/2024 11:49:31 07/19/19 25 07/18/2024 US, obste tric, bioph ysica l profi le + non-s tress test No observ ation record ed. [email or web address] [facility] [address], [place], [address], 07/18/2024 15:30:06 07/19/19 25 07/18/2024 US, obste tric, follo w-up No observ ation record ed. [email or web address] [address], [place], [address], 07/19/2024 17:30:44 07/26/19 25 07/25/2024 non-s tress test No observ ation record ed. [email or web address] [facility] [address], [place], [address], 07/25/2024 14:39:24 07/26/19 25 07/25/2024 US, obste tric, bioph ysica l profi le + non-s tress test No observ ation record ed. [email or web address] [facility] [address], [place], [address], 07/25/2024 16:46:47 07/26/19 25 07/25/2024 US, obste tric, bioph ysica l profi le + non-s tress test No observ ation record ed. [email or web address], [place], [address], 07/25/2024 15:13:46 07/27/19 25 07/26/2024 imagi ng/di agnos tic resul t No observ ation record ed. [facility] [address], [place], [address], 07/26/2024 13:31:23 Result Notes None recorded. Problems Name Problem SNOMED Code Status Onset Date Resolution Date Notes Provider Name and Address Organization Details Recorded Time 79537143 Active 2023 Sonia Brand null, [facility] 4 16:38:57 COVID-19 894462445 Active bASA daily, serial growth Olga Benitez null, [facility] 5 14:59:04 COVID-19 854365040 Active bASA daily, serial growth Olga Benitez null, [facility] 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 5 11:50:08 Problem Notes None recorded. Procedures Surgical History None recorded. Imaging Results Imaging Date Name Status LastModified by Organiz ation Details LastModified Time 07/25/2024 non-stress test completed [email or web address] [facility] [address], [place], [address], 07/25/2024 14:39:24 Procedure Notes None recorded. Medical [...] Address Organization Details Last Updated DateTime 07/25/2024 80109.7149 2 g 99 mm[Hg] 65 mm[Hg] Sonia Brand [facility] 07/25/2024 15:27:05 Social History Question Answer Notes LastModified by Organizat ion Details LastModified Time Tobacco Smoking Status Current Every Day Smoker Sonia Brand [facility], [facility] 04/26/2024 16:36:49 What Is Your Level [...] Or The Highest Degree You Have Received? [id number] Information not available 04/26/2024 Are There Any [...] Anxious, Or Unable To Sleep At Night)? [id number] Information not available 04/26/2024 Do You Use [...] SNOMED-CT Code Diagnosis ICD10 Code Diagnosis Note [id number] [facility] [address],[place] [address] 07/04/2024 10:30:25 07/04/2024 11:08:26 condition affecting obstetrical care of mother 891378854 O35.3XX0 O36.5930 Z3A.30 [id number] Rupesh Diana MD [facility] [address],[place] [address] 07/04/2024 10:30:51 07/04/2024 11:56:26 Polymorphic eruption of 1143413463 O26.86 [id number] LEXIE SILVA MD [facility] [address],[place] [address] 07/10/2024 09:47:25 07/12/2024 07:36:38 Polymorphic eruption of 2051092195 O26.86 - concern for possible ICP due to itching distributi on- bile acids 10 last week, repeat today- repeat bile acids today- starting testing- start ursodiol Gestation period, 31 weeks 30813375 Z3A.31 [id number] LEXIE SILVA MD [facility] [address],[place] [address] 07/10/2024 09:48:03 07/16/2024 03:54:15 Cholestasis of 763516607 O26.[address] [facility] [address],[place] [address] 07/10/2024 09:48:28 07/10/2024 11:08:13 Cholestasis of 730938798 Z3A.31 152223 [facility] [address],[place] [address] 07/18/2024 10:52:30 07/18/2024 11:50:50 Cholestasis of 918745615 Z3A.31 260905 [facility] [address],[place] [address] 07/18/2024 10:53:20 07/18/2024 12:40:30 Cholestasis of 946179085 Z3A.31 Z3A.32 [id number] Rupesh Diana MD [facility] [address],[place] [address] 07/18/2024 10:53:44 07/18/2024 13:19:02 Cholestasis of 426123220 Z3A.31 Z3A.32 176306 [facility] [address],[place] [address] 07/25/2024 13:55:22 07/25/2024 14:43:35 Cholestasis of 448239714 Z3A.31 Z3A.32 636552 [facility] [address],[place] [address] 07/25/2024 13:56:54 07/25/2024 15:11:18 Cholestasis of 380786327 O26.613 Z3A.33 [id number] Rupesh Diana MD [facility] [address],[place] [address] 07/25/2024 14:02:42 07/25/2024 15:51:29 Routine care 279629804 Z34.92 Health Concerns Section Related Observation LastModified by Organization Detai ls LastModified Time None Recorded Concern Status LastModified by Organization Details LastModified Time None Recorded Payers Encounter Date Sequence Insurance Name Policy Number Policy Mclaughlin Covered Member ID Mclaughlin Member ID Guarantor Name 07/25/2024 1 [place] Roseann Mars [id number] [place] Roseann Mars OBGyn Episode Ob Episode Information Episode Created Date Number of Fetuses Patient Bloodtype Patient rh Status Prepregnancy Weight lbs Domestic Partner Domestic Partner Phone Father Name Sales Office Manager Status 04/26/20 24 1 A Positive Fanny STamper OPEN Fetus Data First Name Last Name Admitted to NICU Weight (g) Sex Living Outcome Pediatric Complications Fetus ID Race Codes Race Delivery Type [id number] Problems Problem Notes 07/04 Bile acids 10 borderlin e symptomatic 07/10 Bile acids 4 wnl symptomatic Ursodiol 300mg BID Rpt 07/18 Problem Name Start Date End Date Resolution Snomed Code Not e Polymorphic eruption of 6587890340 Treated with topical steroid COVID-19 360236583 bASA daily , serial growth Justus Calculation [...] Weight in lbs Pre/Post Dialysis Refused Weight 109.465598530644 BP Diastolic BP Location Tested BP Systolic [...] Type Weight in lbs Pre/Post Dialysis Refused 112.824590959154 BP Diastolic BP Location Tested BP Systolic [...] Weight in lbs Pre/Post Dialysis Refused Weight 112.888832179772 BP Diastolic BP Location Tested BP Systolic BP Type 73 L arm 107 sitting Fetus Heart Rate Present A 140 Fetus Movement A Yes Comments Patient c/o Zachariah Christy, s light swelling in feet. Patient [...] Type Weight in lbs Pre/Post Dialysis Refused 112.681936992071 BP Diastolic BP Location Tested BP Systolic [...] Weight in lbs Pre/Post Dialysis Refused Weight 115.481273147175 BP Diastolic BP Location Tested BP Systolic [...] Type Weight in lbs Pre/Post Dialysis Refused 116.03690622492 BP Diastolic BP Location Tested BP Systolic [...]
--- OUTSIDE RECORDS SUMMARY | 2024-07-26 18:32 | XMS_ITS | Continuity of Care Document ---
Author Organization [facility] Address [address] [place] [address] Assessment No assessment recorded. Plan of Treatment [...] profile + non-str ess test 2024 025 [facility], [address], [address], [place], [address], 07/25/2024 15:13:46 Medication Orders None recorde d. Patient TargetsNo targets recorded. Patient InstructionsNo instructions recorded. Reason for Referral None Reported. Results Created Date Observation Date Name Description Value Unit Range Abnormal Flag Note LastModifiedBy Organization Detail LastModifiedTime 05/02/20 24 05/02/2024 US, obste tric, 2nd or 3rd trime ster No observ ation record ed. [facility] [address], [place], [address], 05/02/2024 13:06:09 05/02/20 24 05/02/2024 US, obste tric, 2nd or 3rd trime ster No observ ation record ed. [email or web address] [address] [facility], [place], [address], 05/03/2024 09:25:25 06/18/19 25 06/18/2024 non-s tress test No observ ation record ed. [address], [place], [address], 06/19/2024 13:06:43 07/04/19 25 07/04/2024 US, obste tric, follo w-up No observ ation record ed. [email or web address] [place] [address], [place], [address], 07/04/2024 12:07:16 07/04/19 25 07/04/2024 US, obste tric, follo w-up No observ ation record ed. [email or web address] [address], [place], [address], 07/05/2024 12:46:14 07/08/19 25 07/08/2024 non-s tress test No observ ation record ed. [place] [address], [place], [address], 07/16/2024 15:52:02 07/10/19 25 07/10/2024 US, nikole tric, bioph ysica l profi le + non-s tress test No observ ation record ed. [email or web address] [place] [address], [place], [address], 07/10/2024 11:13:32 07/10/19 25 07/10/2024 US, obste tric, follo w-up No observ ation record ed. [email or web address] [address], [place], [address], 07/11/2024 09:31:09 07/12/19 25 07/10/2024 non-s tress test No observ ation record ed. [email or web address] [place] [address], [place], [address], 07/12/2024 18:29:15 07/12/19 25 07/10/2024 non-s tress test No observ ation record ed. [place] [address], [place], [address], 07/12/2024 18:29:51 07/19/19 25 07/18/2024 non-s tress test No observ ation record ed. [email or web address] [place] [address], [place], [address], 07/18/2024 11:49:31 07/19/19 25 07/18/2024 US, obste tric, bioph ysica l profi le + non-s tress test No observ ation record ed. [email or web address] [place] [address], [place], [address], 07/18/2024 15:30:06 07/19/19 25 07/18/2024 US, obste tric, follo w-up No observ ation record ed. [address], [place], [address], 07/19/2024 17:30:44 07/26/19 25 07/25/2024 non-s tress test No observ ation record ed. [email or web address] [place] [address], [place], [address], 07/25/2024 14:39:24 07/26/19 25 07/25/2024 US, obste tric, bioph ysica l profi le + non-s tress test No observ ation record ed. [email or web address] [place] [address], [place], [address], 07/25/2024 16:46:47 07/26/19 25 07/25/2024 US, obste tric, bioph ysica l profi le + non-s tress test No observ ation record ed. [email or web address], [place], [address], 07/25/2024 15:13:46 07/27/19 25 07/26/2024 imagi ng/di agnos tic resul t No observ ation record ed. [facility] [address], [place], [address], 07/26/2024 13:31:23 Result Notes None recorded. Problems Name Problem SNOMED Code Status Onset Date Resolution Date Notes Provider Name and Address Organization Details Recorded Time 65027761 Active 2023 Sonia Brand null, [facility] 4 16:38:57 COVID-19 213957189 Active bASA daily, serial growth Olga Benitez null, [facility] 5 14:59:04 COVID-19 464830153 Active bASA daily, serial growth Olga Benitez null, [facility] 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 5 11:50:08 Problem Notes None recorded. Procedures Surgical History None recorded. Imaging Results Imaging Date Name Status LastModified by Organiz ation Details LastModified Time 07/25/2024 US, obstetric, biophysical profile + non-stress test completed [facility] [address], [place], [address], 07/25/2024 16:46:47 Procedure Notes None recorded. Medical [...] Address Organization Details Last Updated DateTime 07/25/2024 08657.7149 2 g 99 mm[Hg] 65 mm[Hg] Sonia Brand [facility] 07/25/2024 15:27:05 Social History Question Answer Notes LastModified by Organizat ion Details LastModified Time Tobacco Smoking Status Current Every Day Smoker Sonia Sunday [facility] 04/26/2024 16:36:49 What Is Your Level [...] Or The Highest Degree You Have Received? [id number] Information not available 04/26/2024 Are There Any [...] Anxious, Or Unable To Sleep At Night)? [id number] Information not available 04/26/2024 Do You Use [...] SNOMED-CT Code Diagnosis ICD10 Code Diagnosis Note [id number] Kylah [facility] [address],[place] [address] 07/04/2024 10:30:25 07/04/2024 11:08:26 condition affecting obstetrical care of mother 726471119 O35.3XX0 O36.5930 Z3A.30 [id number] Rupesh Daina MD [place] [address],[place] [address] 07/04/2024 10:30:51 07/04/2024 11:56:26 Polymorphic eruption of 6787036150 O26.86 [id number] LEXIE SILVA MD [place] [address],[place] [address] 07/10/2024 09:47:25 07/12/2024 07:36:38 Polymorphic eruption of 6785377052 O26.86 - concern for possible ICP due to itching distributi on- bile acids 10 last week, repeat today- repeat bile acids today- starting testing- start ursodiol Gestation period, 31 weeks 34379250 Z3A.31 [id number] LEXIE SILVA MD [place] [address],[place] [address] 07/10/2024 09:48:03 07/16/2024 03:54:15 Cholestasis of 444316301 O26.613 189084 Kylah Kang [place] [address],[place] [address] 07/10/2024 09:48:28 07/10/2024 11:08:13 Cholestasis of 821753238 Z3A.31 [id number] [facility] [address],[place] [address] 07/18/2024 10:52:30 07/18/2024 11:50:50 Cholestasis of 845994804 Z3A.31 035763 [facility] [address],[place] [address] 07/18/2024 10:53:20 07/18/2024 12:40:30 Cholestasis of 036083612 Z3A.31 Z3A.32 [id number] Rupesh Diana MD [place] [address],[place] [address] 07/18/2024 10:53:44 07/18/2024 13:19:02 Cholestasis of 014211969 Z3A.31 Z3A.32 849592 [facility] [address],[place] [address] 07/25/2024 13:55:22 07/25/2024 14:43:35 Cholestasis of 917502339 Z3A.31 Z3A.32 165950 [facility] [address],[place] [address] 07/25/2024 13:56:54 07/25/2024 15:11:18 Cholestasis of 058873294 O26.613 Z3A.33 [id number] Rupesh Diana MD [place] [address],[place] [address] 07/25/2024 14:02:42 07/25/2024 15:51:29 Routine care 186149171 Z34.92 Health Concerns Section Related Observation LastModified by Organization Detai ls LastModified Time None Recorded Concern Status LastModified by Organization Details LastModified Time None Recorded Payers Encounter Date Sequence Insurance Name Policy Number Policy Mclaughlin Covered Member ID Mclaughlin Member ID Guarantor Name 07/25/2024 1 [place] Roseann Mars [id number] Roseann Mars OBGyn Episode Ob Episode Information Episode Created Date Number of Fetuses Patient Bloodtype Patient rh Status Prepregnancy Weight lbs Domestic Partner Domestic Partner Phone Father Name Salon Coordinator Status 04/26/20 24 1 A Positive Fanny STamper OPEN Fetus Data First Name Last Name Admitted to NICU Weight (g) Sex Living Outcome Pediatric Complications Fetus ID Race Codes Race Delivery Type [id number] Problems Problem Notes 07/04 Bile acids 10 borderlin e symptomatic 07/10 Bile acids 4 wnl symptomatic Ursodiol 300mg BID Rpt 07/18 Problem Name Start Date End Date Resolution Snomed Code Not e Polymorphic eruption of 7454316375 Treated with topical steroid COVID-19 371336038 bASA daily , serial growth Justus Calculation [...] Weight in lbs Pre/Post Dialysis Refused Weight 109.225806301082 BP Diastolic BP Location Tested BP Systolic [...] Type Weight in lbs Pre/Post Dialysis Refused 112.897640530609 BP Diastolic BP Location Tested BP Systolic [...] Weight in lbs Pre/Post Dialysis Refused Weight 112.030694333694 BP Diastolic BP Location Tested BP Systolic BP Type 73 L arm 107 sitting Fetus Heart Rate Present A 140 Fetus Movement A Yes Comments Patient c/o [place] Christy, s light swelling in feet. Patient [...] Type Weight in lbs Pre/Post Dialysis Refused 112.782437696865 BP Diastolic BP Location Tested BP Systolic [...] Weight in lbs Pre/Post Dialysis Refused Weight 115.280969570159 BP Diastolic BP Location Tested BP Systolic [...] Type Weight in lbs Pre/Post Dialysis Refused 116.94938585883 BP Diastolic BP Location Tested BP Systolic [...]
--- OUTSIDE RECORDS SUMMARY | 2024-07-26 18:32 | XMS_ITS | Data Portability ---
Author Organization [facility] Address [address] [place] [place] [address] Assessment Encounter Date Assessment Date Assessment LastModified [...] profile + non-str ess test [address] [facility], [address], [place], [address], 07/25/2024 15:13:46 non-str ess test 20[address], [facility] [address], [place], [address], 07/26/2024 03:26:37 US, obstetr ic, biophys ical profile + non-str ess test 2024 [address] [place] [address], [place], [address], 07/18/2024 20:26:16 non-str ess test 2024 [address] [facility] [address], [address], [place], [address], 07/19/2024 07:47:31 Medication Orders None recorde d. Patient TargetsNo targets recorded. Patient InstructionsNo instructions recorded. Reason for Referral None Reported. Results Created Date Observation Date Name Description Value Unit Range Abnormal Flag Note LastModifiedBy Organization Detail LastModifiedTime 07/04/19 25 07/04/2024 CBC (HEMO GRAM) WBC 8.9 10'3/ uL 3.5-10 .5 Not Available [facility] (Lab) [address], [place], [address], 07/07/2024 23:58:41 07/04/19 25 07/04/2024 CBC (HEMO GRAM) RBC 3.35 10'6/ uL (based on docume nted legal sex) 3.80-5 .20 low Not Available [facility] (Lab) [address], [place], [address], 07/07/2024 23:58:41 07/04/19 25 07/04/2024 CBC (HEMO GRAM) HGB 10.9 g/dL (based on docume nted legal sex) 11.6-1 5.4 low Not Available [facility] (Lab) [address], [place], [address], 07/07/2024 23:58:41 07/04/19 25 07/04/2024 CBC (HEMO GRAM) HCT 33.5 % (based on docume nted legal sex) 34.0-4 5.0 low Not Available [facility] (Lab) [address] [place], [address], 07/07/2024 23:58:41 07/04/19 25 07/04/2024 CBC (HEMO GRAM) MCV 100.0 fL 80.0-9 9.0 high Not Available [facility] (Lab) [address] [place], [address], 07/07/2024 23:58:41 07/04/19 25 07/04/2024 CBC (HEMO GRAM) MCH 32.5 pg 27.0-3 4.0 Not Available [facility] (Lab) [address] [place], [address], 07/07/2024 23:58:41 07/04/19 25 07/04/2024 CBC (HEMO GRAM) MCHC 32.5 g/dL 32.0-3 5.5 Not Available [facility] (Lab) [address] [facility], [place], [address], 07/07/2024 23:58:41 07/04/19 25 07/04/2024 CBC (HEMO GRAM) RDW 12.7 % 11.0-1 5.0 Not Available [facility] (Lab) [address] [facility], [place], [address], 07/07/2024 23:58:41 07/04/19 25 07/04/2024 CBC (HEMO GRAM) plt 478 10'3/ uL 150-40 0 high Not Available [facility] (Lab) [address] [facility], [place], [address], 07/07/2024 23:58:41 07/04/19 25 07/04/2024 CBC (HEMO GRAM) MPV 9.7 fL 8.8-12 .1 Refer ence range s for nonbi nary/ inter sex or unspe cifie d gende r patie nts have not been estab lishe d. Pleas e refer to the jasen wan table for range s estab lishe d for cisge nder patie nts and evalu ate in the clini safia casey xt of the indiv idual patie nt: https ://albertina brady book. nm.or g/gen derx Not Available [facility] (Lab) [address] [facility], [place], [address], 07/07/2024 23:58:41 07/04/19 25 07/04/2024 GTT - GESTA ALIYAH Sarah Srinivasan, ACOG OB glucose, 1 hour screen 98 mg/dL 70-135 Not Available [facility] (Lab) [address] [facility], [place], [address], 07/07/2024 23:58:42 07/04/19 25 07/04/2024 CMP WITH BUN/C REAT RATIO sodium 136 mmol/ L 133-14 6 Not Available [facility] (Lab) [address] [facility], [place], [address], 07/07/2024 23:58:42 07/04/19 25 07/04/2024 CMP WITH BUN/C REAT RATIO potassium 3.5 mmol/ L 3.5-5. 1 Not Available [facility] (Lab) [address] [facility], [place], [address], 07/07/2024 23:58:42 07/04/19 25 07/04/2024 CMP WITH BUN/C REAT RATIO chloride 104 mmol/ L 98-107 Not Available [facility] (Lab) [address] [facility], [place], [address], 07/07/2024 23:58:42 07/04/19 25 07/04/2024 CMP WITH BUN/C REAT RATIO carbon dioxide 27 mmol/ L 21-31 Not Available [facility] (Lab) [address] [facility], [place], [address], 07/07/2024 23:58:42 07/04/19 25 07/04/2024 CMP WITH BUN/C REAT RATIO anion gap 5 mmol/ L 4-13 Not Available [facility] (Lab) [address] [facility], [place], [address], 07/07/2024 23:58:42 07/04/19 25 07/04/2024 CMP WITH BUN/C REAT RATIO blood urea nitrogen 8 mg/dL 7-25 Not Available [facility] (Lab) [address] [place], [address], 07/07/2024 23:58:42 07/04/19 25 07/04/2024 CMP WITH BUN/C REAT RATIO creatinine 0.41 mg/dL 0.60-1 .30 low Not Available [facility] (Lab) [address] [place], [address], 07/07/2024 23:58:42 07/04/19 25 07/04/2024 CMP WITH BUN/C REAT RATIO egfrcr (CKD-epi 2020) >90 mL/mi n/1.7 3_m2 >=60 Not Available [facility] (Lab) [address], [place], [address], 07/07/2024 23:58:42 07/04/19 25 07/04/2024 CMP WITH BUN/C REAT RATIO BUN/creatini ne ratio 19.5 . 10.0-2 2.0 Not Available [facility] (Lab) [address], [place], [address], 07/07/2024 23:58:42 07/04/19 25 07/04/2024 CMP WITH BUN/C REAT RATIO calcium 8.4 mg/dL 8.3-10 .5 Not Available [facility] (Lab) [address], [place], [address], 07/07/2024 23:58:42 07/04/19 25 07/04/2024 CMP WITH BUN/C REAT RATIO glucose 98 mg/dL 70-100 Not Available [facility] (Lab) [address] [facility] [address], [place], [address], 07/07/2024 23:58:42 07/04/19 25 07/04/2024 CMP WITH BUN/C REAT RATIO protein, total 6.3 g/dL 6.4-8. 3 low Not Available [facility] (Lab) [address] [place], [address], 07/07/2024 23:58:42 07/04/19 25 07/04/2024 CMP WITH BUN/C REAT RATIO albumin 3.3 g/dL 3.5-5. 0 low Not Available [facility] (Lab) [address] [facility] [address], [place], [address], 07/07/2024 23:58:42 07/04/19 25 07/04/2024 CMP WITH BUN/C REAT RATIO ALT 22 units /L 9-43 Not Available [facility] (Lab) [address] [facility], [place], [address], 07/07/2024 23:58:42 07/04/19 25 07/04/2024 CMP WITH BUN/C REAT RATIO alkaline phosphatase 99 units /L 34-104 Not Available [facility] (Lab) [address] [facility], [place], [address], 07/07/2024 23:58:42 07/04/19 25 07/04/2024 CMP WITH BUN/C REAT RATIO AST 27 units /L 13-39 Not Available [facility] (Lab) [address] [facility], [place], [address], 07/07/2024 23:58:42 07/04/19 25 07/04/2024 CMP WITH BUN/C REAT RATIO bilirubin, total 0.3 mg/dL 0.2-1. 2 Not Available [facility] (Lab) [address] [place], [address], 07/07/2024 23:58:42 07/04/19 25 07/04/2024 BILE ACIDS , TOTAL bile acids, total 10 umol/ L 0-10 Test Perfo rmed by: [facility] [address] [address] Not Available [facility] (Lab) [address] [place], [address], 07/07/2024 23:58:42 07/10/19 25 07/10/2024 CBC (HEMO GRAM) WBC 7.9 10'3/ uL 3.5-10 .5 Not Available [facility] (Lab) [address] [place], [address], 07/11/2024 19:03:59 07/10/19 25 07/10/2024 CBC (HEMO GRAM) RBC 3.23 10'6/ uL (based on docume nted legal sex) 3.80-5 .20 low Not Available [facility] (Lab) [address] [facility], [place], [address], 07/11/2024 19:03:59 07/10/1907/10/2024 CBC (HEMO GRAM) HGB 10.5 g/dL (based on docume nted legal sex) 11.6-1 5.4 low Not Available [facility] (Lab) [address] [facility], [place], [address], 07/11/2024 19:03:59 07/10/1907/10/2024 CBC (HEMO GRAM) HCT 31.5 % (based on docume nted legal sex) 34.0-4 5.0 low Not Available [facility] (Lab) [address] [facility], [place], [address], 07/11/2024 19:03:59 07/10/1907/10/2024 CBC (HEMO GRAM) MCV 97.5 fL 80.0-9 9.0 Not Available [facility] (Lab) [address] [facility], [place], [address], 07/11/2024 19:03:59 07/10/1907/10/2024 CBC (HEMO GRAM) MCH 32.5 pg 27.0-3 4.0 Not Available [facility] (Lab) [address] [place], [address], 07/11/2024 19:03:59 07/10/1907/10/2024 CBC (HEMO GRAM) MCHC 33.3 g/dL 32.0-3 5.5 Not Available [facility] (Lab) [address] [place], [address], 07/11/2024 19:03:59 07/10/1907/10/2024 CBC (HEMO GRAM) RDW 12.7 % 11.0-1 5.0 Not Available [facility] (Lab) [address] [place], [address], 07/11/2024 19:03:59 07/10/19 25 07/10/2024 CBC (HEMO GRAM) plt 437 10'3/ uL 150-40 0 high Not Available [facility] (Lab) [address], [place], [address], 07/11/2024 19:03:59 07/10/19 25 07/10/2024 CBC (HEMO GRAM) MPV 9.7 fL 8.8-12 .1 Refer ence range s for nonbi nary/ inter sex or unspe cifie d gende r patie nts have not been estab lishe d. Pleas e refer to the follo wing table for range s estab lishe d for cisge nder patie nts and evalu ate in the clini safia casey xt of the indiv idual patie nt: https ://albertina brady book. nm.or g/gen derx Not Available [facility] (Lab) [address], [place], [address], 07/11/2024 19:03:59 07/10/19 25 07/10/2024 CMP WITH BUN/C REAT RATIO sodium 139 mmol/ L 133-14 6 Not Available [facility] (Lab) [address], [place], [address], 07/11/2024 19:03:59 07/10/19 25 07/10/2024 CMP WITH BUN/C REAT RATIO potassium 3.9 mmol/ L 3.5-5. 1 Not Available [facility] (Lab) [address] , [place], [address], 07/11/2024 19:03:59 07/10/19 25 07/10/2024 CMP WITH BUN/C REAT RATIO chloride 104 mmol/ L 98-107 Not Available [facility] (Lab) [address] [place], [address], 07/11/2024 19:03:59 07/10/19 25 07/10/2024 CMP WITH BUN/C REAT RATIO carbon dioxide 24 mmol/ L 21-31 Not Available [facility] (Lab) [address] [facility], [place], [address], 07/11/2024 19:03:59 07/10/19 25 07/10/2024 CMP WITH BUN/C REAT RATIO anion gap 11 mmol/ L 4-13 Not Available [facility] (Lab) [address] [facility], [place], [address], 07/11/2024 19:03:59 07/10/19 25 07/10/2024 CMP WITH BUN/C REAT RATIO blood urea nitrogen 6 mg/dL 7-25 low Not Available [facility] (Lab) [address] [facility], [place], [address], 07/11/2024 19:03:59 07/10/19 25 07/10/2024 CMP WITH BUN/C REAT RATIO creatinine 0.45 mg/dL 0.60-1 .30 low Not Available [facility] (Lab) [address] [facility], [place], [address], 07/11/2024 19:03:59 07/10/19 25 07/10/2024 CMP WITH BUN/C REAT RATIO egfrcr (CKD-epi 2020) >90 mL/mi n/1.7 3_m2 >=60 Not Available [facility] (Lab) [address] [place], [address], 07/11/2024 19:03:59 07/10/19 25 07/10/2024 CMP WITH BUN/C REAT RATIO BUN/creatini ne ratio 13.3 . 10.0-2 2.0 Not Available [facility] (Lab) [address] [facility], [place], [address], 07/11/2024 19:03:59 07/10/19 25 07/10/2024 CMP WITH BUN/C REAT RATIO calcium 8.4 mg/dL 8.3-10 .5 Not Available [facility] (Lab) [address] [place], [address], 07/11/2024 19:03:59 07/10/19 25 07/10/2024 CMP WITH BUN/C REAT RATIO glucose 98 mg/dL 70-100 Not Available [facility] (Lab) [address] [facility], [place], [address], 07/11/2024 19:03:59 07/10/19 25 07/10/2024 CMP WITH BUN/C REAT RATIO protein, total 6.2 g/dL 6.4-8. 3 low Not Available [facility] (Lab) [address] [facility], [place], [address], 07/11/2024 19:03:59 07/10/19 25 07/10/2024 CMP WITH BUN/C REAT RATIO albumin 3.4 g/dL 3.5-5. 0 low Not Available [facility] (Lab) [address] [facility], [place], [address], 07/11/2024 19:03:59 07/10/19 25 07/10/2024 CMP WITH BUN/C REAT RATIO ALT 15 units /L 9-43 Not Available [facility] (Lab) [address] [facility], [place], [address], 07/11/2024 19:03:59 07/10/19 25 07/10/2024 CMP WITH BUN/C REAT RATIO alkaline phosphatase 95 units /L 34-104 Not Available [facility] (Lab) [address] [facility], [place], [address], 07/11/2024 19:03:59 07/10/19 25 07/10/2024 CMP WITH BUN/C REAT RATIO AST 16 units /L 13-39 Not Available [facility] (Lab) [address] [facility], [place], [address], 07/11/2024 19:03:59 07/10/19 25 07/10/2024 CMP WITH BUN/C REAT RATIO bilirubin, total 0.4 mg/dL 0.2-1. 2 Not Available [facility] (Lab) [address] [facility], [place], [address], 07/11/2024 19:03:59 07/10/19 25 07/10/2024 BILE ACIDS , TOTAL bile acids, total 4 umol/ L 0-10 Test Perfo rmed by: Carmelo sheldon [address] [address] Not Available [facility] (Lab) [address] [facility], [place], [address], 07/11/2024 19:04:00 07/19/19 25 07/18/2024 CMP(C OMPRE HENSI VE METAB OLIC PANEL ) sodium 137 mmol/ L 133-14 6 Not Available [facility] (Lab) [address] [facility], [place], [address], 07/19/2024 10:04:14 07/19/19 25 07/18/2024 CMP(C OMPRE HENSI VE METAB OLIC PANEL ) potassium 3.9 mmol/ L 3.5-5. 1 Not Available [facility] (Lab) [address] [facility], [place], [address], 07/19/2024 10:04:14 07/19/19 25 07/18/2024 CMP(C OMPRE HENSI VE METAB OLIC PANEL ) chloride 103 mmol/ L 98-107 Not Available [facility] (Lab) [address] [place], [address], 07/19/2024 10:04:14 07/19/19 25 07/18/2024 CMP(C OMPRE HENSI VE METAB OLIC PANEL ) carbon dioxide 27 mmol/ L 21-31 Not Available [facility] (Lab) [address] [facility], [place], [address], 07/19/2024 10:04:14 07/19/19 25 07/18/2024 CMP(C OMPRE HENSI VE METAB OLIC PANEL ) anion gap 7 mmol/ L 4-13 Not Available [facility] (Lab) [address] [facility], [place], [address], 07/19/2024 10:04:14 07/19/19 25 07/18/2024 CMP(C OMPRE HENSI VE METAB OLIC PANEL ) blood urea nitrogen 9 mg/dL 7-25 Not Available [facility] (Lab) [address] [facility], [place], [address], 07/19/2024 10:04:14 07/19/19 25 07/18/2024 CMP(C OMPRE HENSI VE METAB OLIC PANEL ) creatinine 0.45 mg/dL 0.60-1 .30 low Not Available [facility] (Lab) [address] [facility], [place], [address], 07/19/2024 10:04:14 07/19/19 25 07/18/2024 CMP(C OMPRE HENSI VE METAB OLIC PANEL ) egfrcr (CKD-epi 2020) >90 mL/mi n/1.7 3_m2 >=60 Not Available [facility] (Lab) [address] [facility], [place], [address], 07/19/2024 10:04:14 07/19/19 25 07/18/2024 CMP(C OMPRE HENSI VE METAB OLIC PANEL ) calcium 9.0 mg/dL 8.3-10 .5 Not Available [facility] (Lab) [address] [facility], [place], [address], 07/19/2024 10:04:14 07/19/19 25 07/18/2024 CMP(C OMPRE HENSI VE METAB OLIC PANEL ) glucose 73 mg/dL 70-100 Not Available [facility] (Lab) [address] [facility], [place], [address], 07/19/2024 10:04:14 07/19/19 25 07/18/2024 CMP(C OMPRE HENSI VE METAB OLIC PANEL ) protein, total 5.8 g/dL 6.4-8. 3 low Not Available [facility] (Lab) [address] [facility], [place], [address], 07/19/2024 10:04:14 07/19/19 25 07/18/2024 CMP(C OMPRE HENSI VE METAB OLIC PANEL ) albumin 3.3 g/dL 3.5-5. 0 low Not Available [facility] (Lab) [address] [facility], [place], [address], 07/19/2024 10:04:14 07/19/19 25 07/18/2024 CMP(C OMPRE HENSI VE METAB OLIC PANEL ) ALT 8 units /L 9-43 low Not Available [facility] (Lab) [address] [facility], [place], [address], 07/19/2024 10:04:14 07/19/19 25 07/18/2024 CMP(C OMPRE HENSI VE METAB OLIC PANEL ) alkaline phosphatase 100 units /L 34-104 Not Available [facility] (Lab) [address] [facility], [place], [address], 07/19/2024 10:04:14 07/19/19 25 07/18/2024 CMP(C OMPRE HENSI VE METAB OLIC PANEL ) AST 13 units /L 13-39 Not Available [facility] (Lab) [address] [facility], [place], [address], 07/19/2024 10:04:14 07/19/19 25 07/18/2024 CMP(C OMPRE HENSI VE METAB OLIC PANEL ) bilirubin, total 0.3 mg/dL 0.2-1. 2 Not Available [facility] (Lab) [address] [place], [address], 07/19/2024 10:04:14 07/19/19 25 07/18/2024 BILE ACIDS , TOTAL bile acids, total 7 umol/ L 0-10 Test Perfo rmed by: [facility] [address] [address] Not Available [facility] (Lab) [address], [place], [address], 07/19/2024 10:04:14 07/04/19 25 07/04/2024 US, obste tric, follo w-up No observ ation record ed. [email or web address] [place] [address], [place], [address], 07/04/2024 12:07:16 07/04/19 25 07/04/2024 US, obste tric, follo w-up No observ ation record ed. [email or web address] [address], [place], [address], 07/05/2024 12:46:14 07/08/19 25 07/08/2024 non-s tress test No observ ation record ed. [address], [place], [address], 07/16/2024 15:52:02 07/10/19 25 07/10/2024 US, obste tric, bioph ysica l profi le + non-s tress test No observ ation record ed. [email or web address] [place] [address], [place], [address], 07/10/2024 11:13:32 07/10/19 25 07/10/2024 US, obste tric, follo w-up No observ ation record ed. [email or web address] [address], [place], [address], 07/11/2024 09:31:09 07/12/19 25 07/10/2024 non-s tress test No observ ation record ed. [email or web address] [place] [address], [place], [address], 07/12/2024 18:29:15 07/12/19 25 07/10/2024 non-s tress test No observ ation record ed. [place] [address], [place], [address], 07/12/2024 18:29:51 07/19/19 25 07/18/2024 non-s tress test No observ ation record ed. [email or web address] [place] [address], [place], [address], 07/18/2024 11:49:31 07/19/19 25 07/18/2024 US, obste tric, bioph ysica l profi le + non-s tress test No observ ation record ed. [email or web address] [place] [address], [place], [address], 07/18/2024 15:30:06 07/19/19 25 07/18/2024 US, obste tric, follo w-up No observ ation record ed. [email or web address] [address], [place], [address], 07/19/2024 17:30:44 07/26/19 25 07/25/2024 non-s tress test No observ ation record ed. [email or web address] [place] [address], [place], [address], 07/25/2024 14:39:24 07/26/19 25 07/25/2024 US, obste tric, bioph ysica l profi le + non-s tress test No observ ation record ed. [email or web address] [place] [address], [place], [address], 07/25/2024 16:46:47 07/26/19 25 07/25/2024 US, obste tric, bioph ysica l profi le + non-s tress test No observ ation record ed. [email or web address], [place], [address], 07/25/2024 15:13:46 07/27/19 25 07/26/2024 imagi ng/carmen hutton tic resul t No observ ation record ed. [facility] [address], [place], [address], 07/26/2024 13:31:23 Result Notes None recorded. Problems Name Problem SNOMED Code Status Onset Date Resolution Date Notes Provider Name and Address Organization Details Recorded Time 74437905 Active 2023 Sonia Brand null, [facility] 4 16:38:57 COVID-19 401127779 Active [facility] daily, serial growth Olga Benitez [facility], [facility] 5 14:59:04 COVID-19 003833183 Active [facility] daily, serial growth Olga Benitez [facility], [facility] 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 5 11:50:08 Problem Notes None recorded. Procedures Surgical History None recorded. Imaging Results Imaging Date Name Status LastModified by Organiz ation Details LastModified Time 07/04/2024 US, obstetric, follow-up completed [email or web address] [place] [address], [place], [address], 07/04/2024 12:07:16 07/04/2024 US, obstetric, follow-up completed [email or web address] [address], [place], [address], 07/05/2024 12:46:14 07/08/2024 non-stress test completed [address], [place], [address], 07/16/2024 15:52:02 07/10/2024 US, obstetric, biophysical profile + non-stress test completed [email or web address] [place] [address], [place], [address], 07/10/2024 11:13:32 07/10/2024 US, obstetric, follow-up completed [address], [place], [address], 07/11/2024 09:31:09 07/10/2024 non-stress test completed [email or web address] [place] [address], [place], [address], 07/12/2024 18:29:15 07/10/2024 non-stress test completed [email or web address] [place] [address], [place], [address], 07/12/2024 18:29:51 07/18/2024 non-stress test completed [email or web address] [place] [address], [place], [address], 07/18/2024 11:49:31 07/18/2024 US, obstetric, biophysical profile + non-stress test completed [email or web address] [place] [address], [place], [address], 07/18/2024 15:30:06 07/18/2024 US, obstetric, follow-up completed [email or web address] [address], [place], [address], 07/19/2024 17:30:44 07/25/2024 non-stress test completed [email or web address] [place] [address], [place], [address], 07/25/2024 14:39:24 07/25/2024 US, obstetric, biophysical profile + non-stress test completed [email or web address] [place] [address], [place], [address], 07/25/2024 16:46:47 07/25/2024 US, obstetric, biophysical profile + non-stress test active [email or web address], [place], [address], 07/25/2024 15:13:46 07/26/2024 imaging/diagnos tic result active [facility] [address], [place], [address], 07/26/2024 13:31:23 Procedure Notes None recorded. Medical Equipment None [...] Updated DateTime 07/18/2024 162.56 cm 19.7 kg/m2 74867.12 g 103 mm[Hg] 71 mm[Hg] Sonia Brand OK - [facility] 12:47:39 Date Recorded Body weight Systolic blood pressure Diastolic blood pressure Provider Name and Address Organization Details Last Updated DateTime 07/25/2024 11931.7149 2 g 99 mm[Hg] 65 mm[Hg] Sonia Brand [facility] 07/25/2024 15:27:05 Social History Question Answer Notes LastModified by Organizat ion Details LastModified Time Tobacco Smoking Status Current Every Day Smoker Sonia Brand null, [facility] 04/26/2024 16:36:49 What Is Your Level [...] Or The Highest Degree You Have Received? [id number] Information not available 04/26/2024 Are There Any [...] Anxious, Or Unable To Sleep At Night)? [id number] Information not available 04/26/2024 Do You Use [...] ) N Other N Blood Transfusion N Drug/Latex Allergies/Reactions N Breast Cancer N Dermatologic Disorders N Lung Disease N [...] SNOMED-CT Code Diagnosis ICD10 Code Diagnosis Note [id number] [facility] [address] [address] 02/22/2024 09:46:25 02/22/2024 10:30:52 screening 803351020 Z36.82 Z36.87 Z3A.11 [id number] Rupesh Thomas MD [place] [address],[place] [address] 04/26/2024 15:51:28 04/29/2024 08:15:48 Routine care [id number] Z34.92 [id number] [facility] [address],[place] [address] 05/02/2024 11:44:52 05/02/2024 12:58:33 screening for malformation 723302749 Z36.3 Z3A.21 [id number] [facility] [address],[place] [address] 07/04/2024 10:30:25 07/04/2024 11:08:26 condition affecting obstetrical care of mother [id number] O35.3XX0 O36.5930 Z3A.30 [id number] Rupesh Thomas MD [place] [address] [address],[place] [address] 07/04/2024 10:30:51 07/04/2024 11:56:26 Polymorphic eruption of 0163897443 O26.86 [id number] LEXIE SILVA MD [place] [address],[place] [address] 07/10/2024 09:47:25 07/12/2024 07:36:38 Polymorphic eruption of 6889672905 O26.86 - concern for possible ICP due to itching distributi on- bile acids 10 last week, repeat today- repeat bile acids today- starting testing- start ursodiol Gestation period, 31 weeks 09201758 Z3A.31 [id number] LEXIE SILVA MD [place] [address],[place] [address] 07/10/2024 09:48:03 07/16/2024 03:54:15 Cholestasis of 043394565 O26.613 235018 [facility] [address],[place] [address] 07/10/2024 09:48:28 07/10/2024 11:08:13 Cholestasis of 276779177 Z3A.31 279290 Bhavna [facility] [address],[place] [address] 07/18/2024 10:52:30 07/18/2024 11:50:50 Cholestasis of 194657400 Z3A.31 [id number] [facility] [address],[place] [address] 07/18/2024 10:53:20 07/18/2024 12:40:30 Cholestasis of 776639122 Z3A.31 Z3A.32 406383 Rupesh Thomas MD [place] [address],[place] [address] 07/18/2024 10:53:44 07/18/2024 13:19:02 Cholestasis of 520673580 Z3A.31 Z3A.32 928103 [facility] [address],[place] [address] 07/25/2024 13:55:22 07/25/2024 14:43:35 Cholestasis of 620540790 Z3A.31 Z3A.32 [id number] [facility] [address] [place] [address] 07/25/2024 13:56:54 07/25/2024 15:11:18 Cholestasis of 386268839 O26.613 Z3A.33 [id number] Rupesh Thomas MD [place] [address],[place] [address] 07/25/2024 14:02:42 07/25/2024 15:51:29 Routine care 511238470 Z34.92 Health Concerns Section Related Observation LastModified by Organization Detai ls LastModified Time None Recorded Concern Status LastModified by Organization Details LastModified Time None Recorded Advance Directives Directive None Recorded Payers Encounter Date Sequence Insurance Name Policy Number Policy Mclaughlin Covered Member ID Mclaughlin Member ID Guarantor Name 07/18/2024 1 [place] Roseann E Mars [id number] Roseann Mars 07/18/2024 1 [place] Roseann E Mars [id number] Roseann Mars 07/25/2024 1 [place] Roseann E Mars [id number] 9 Roseann Mars 07/25/2024 1 [place] Roseann E Mars [id number] 9 Roseann Mars 07/25/2024 1 [place] Roseann E Mars [id number] 9 Roseann Mars OBGyn Episode Ob Episode Information Episode Created Date Number of Fetuses Patient Bloodtype Patient rh Status Prepregnancy Weight lbs Domestic Partner Domestic Partner Phone Father Name Development Geologist Status 04/26/20 24 1 A Positive Fanny STamper OPEN Fetus Data First Name Last Name Admitted to NICU Weight (g) Sex Living Outcome Pediatric Complications Fetus ID Race Codes Race Delivery Type [id number] Problems Problem Notes 07/04 Bile acids 10 borderlin e symptomatic 07/10 Bile acids 4 wnl symptomatic Ursodiol 300mg BID Rpt 07/18 Problem Name Start Date End Date Resolution Snomed Code Not e 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 Patient [...] Type Weight in lbs Pre/Post Dialysis Refused 112.573994164128 BP Diastolic BP Location Tested BP Systolic [...] Weight in lbs Pre/Post Dialysis Refused Weight 115.344222795594 BP Diastolic BP Location Tested BP Systolic [...] Type Weight in lbs Pre/Post Dialysis Refused 116.94835650058 BP Diastolic BP Location Tested BP Systolic [...] Domestic Partner Domestic Partner Phone Father Name Development Geologist Status 04/26/20 24 1 CLOSED Fetus Data First Name Last Name Admitted to NICU Weight (g) Sex Living Outcome Pediatric Complications Fetus ID Race Codes Race Delivery Type F Full Term [id number] Vaginal Delivery Justus Calculation Initial Justus Date [...]
--- OUTSIDE RECORDS SUMMARY | 2024-07-26 18:33 | XMS_ITS | Continuity of Care Document ---
Author Organization [facility] Address [address] [place] [address] Assessment Encounter Date Assessment Date Assessment LastModified [...] trime ster No observ ation record ed. [facility] [address], [place], [address], 05/02/2024 13:06:09 05/02/20 24 05/02/2024 US, obste tric, 2nd or 3rd trime ster No observ ation record ed. [email or web address] [facility], [place], [address], 05/03/2024 09:25:25 06/18/19 25 06/18/2024 non-s tress test No observ ation record ed. [address], [place], [address], 06/19/2024 13:06:43 07/04/19 25 07/04/2024 US, obste tric, follo w-up No observ ation record ed. [email or web address] [place] [address], [place], [address], 07/04/2024 12:07:16 07/04/19 25 07/04/2024 US, obste tric, follo w-up No observ ation record ed. [email or web address] [address], [place], [address], 07/05/2024 12:46:14 07/08/19 25 07/08/2024 non-s tress test No observ ation record ed. [address], [place], [address], 07/16/2024 15:52:02 07/10/19 25 07/10/2024 US, obste tric, bioph ysica l profi le + non-s tress test No observ ation record ed. [email or web address] [place] [address], [place], [address], 07/10/2024 11:13:32 07/10/19 25 07/10/2024 US, obste tric, follo w-up No observ ation record ed. [email or web address] [address], [place], [address], 07/11/2024 09:31:09 07/12/19 25 07/10/2024 non-s tress test No observ ation record ed. [email or web address] [place] [address], [place], [address], 07/12/2024 18:29:15 07/12/19 25 07/10/2024 non-s tress test No observ ation record ed. [email or web address] [place] [address], [place], [address], 07/12/2024 18:29:51 07/19/19 25 07/18/2024 non-s tress test No observ ation record ed. [email or web address] [place] [address], [place], [address], 07/18/2024 11:49:31 07/19/19 25 07/18/2024 US, obste tric, bioph ysica l profi le + non-s tress test No observ ation record ed. [email or web address] [place] [address], [place], [address], 07/18/2024 15:30:06 07/19/19 25 07/18/2024 US, obste tric, follo w-up No observ ation record ed. [address], [place], [address], 07/19/2024 17:30:44 07/26/19 25 07/25/2024 non-s tress test No observ ation record ed. [email or web address] [place] [address], [place], [address], 07/25/2024 14:39:24 07/26/19 25 07/25/2024 US, obste tric, bioph ysica l profi le + non-s tress test No observ ation record ed. [email or web address] [place] [address], [place], [address], 07/25/2024 16:46:47 07/26/19 25 07/25/2024 US, obste tric, bioph ysica l profi le + non-s tress test No observ ation record ed. [email or web address] [address], [place], [address], 07/25/2024 15:13:46 07/27/19 25 07/26/2024 imagi ng/di agnos tic resul t No observ ation record ed. [facility] [address], [place], [address], 07/26/2024 13:31:23 Result Notes None recorded. Problems Name Problem SNOMED Code Status Onset Date Resolution Date Notes Provider Name and Address Organization Details Recorded Time 02845755 Active 2023 Sonia Brand null, [facility] 4 16:38:57 COVID-19 113838430 Active bASA daily, serial growth Olga Benitez null, [facility] 5 14:59:04 COVID-19 565342962 Active bASA daily, serial growth Olga Benitez null, [facility] 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 5 11:50:08 Problem Notes [...] Address Organization Details Last Updated DateTime 07/25/2024 46570.7149 2 g 99 mm[Hg] 65 mm[Hg] Sonia Brand [facility] 07/25/2024 15:27:05 Social History Question Answer Notes LastModified by Organizat ion Details LastModified Time Tobacco Smoking Status Current Every Day Smoker Sonia Brand null, [facility] 04/26/2024 16:36:49 What Is Your [...] Or The Highest Degree You Have Received? [id number] Information not available 04/26/2024 Are There Any [...] Anxious, Or Unable To Sleep At Night)? [id number] Information not available 04/26/2024 Do You Use [...] (Food, seasonal, environmental ) N Other N Drug/Latex Allergies/Reactions N Breast Cancer N Blood Transfusion N Lung Disease N Dermatologic Disorders N [...] SNOMED-CT Code Diagnosis ICD10 Code Diagnosis Note [id number] [facility] [address],[place] [address] 07/04/2024 10:30:25 07/04/2024 11:08:26 condition affecting obstetrical care of mother 026764052 O35.3XX0 O36.5930 Z3A.30 [id number] Rupesh Diana MD [place] [address],[place] [address] 07/04/2024 10:30:51 07/04/2024 11:56:26 Polymorphic eruption of 7319649608 O26.86 [id number] LEXIE SILVA MD [place] [address],[place] [address] 07/10/2024 09:47:25 07/12/2024 07:36:38 Polymorphic eruption of 2919018773 O26.86 - concern for possible ICP due to itching distributi on- bile acids 10 last week, repeat today- repeat bile acids today- starting testing- start ursodiol Gestation period, 31 weeks 05066203 Z3A.31 [id number] LEXIE SILVA MD [place] [address],[place] [address] 07/10/2024 09:48:03 07/16/2024 03:54:15 Cholestasis of 536839892 O26.613 [id number] [facility] [address],[place] [address] 07/10/2024 09:48:28 07/10/2024 11:08:13 Cholestasis of 537243971 Z3A.31 076399 Bhavna Pedraza [place] [address],[place] [address] 07/18/2024 10:52:30 07/18/2024 11:50:50 Cholestasis of 085312533 Z3A.31 [id number] [facility] [address],[place] [address] 07/18/2024 10:53:20 07/18/2024 12:40:30 Cholestasis of 812784650 Z3A.31 Z3A.32 [id number] Rupesh Diana MD [place] [address],[place] [address] 07/18/2024 10:53:44 07/18/2024 13:19:02 Cholestasis of 461984949 Z3A.31 Z3A.32 602807 Bhavna Pedraza [place] [address],[place] [address] 07/25/2024 13:55:22 07/25/2024 14:43:35 Cholestasis of 483204516 Z3A.31 Z3A.32 752191 [facility] [address],[place] [address] 07/25/2024 13:56:54 07/25/2024 15:11:18 Cholestasis of 321798253 O26.613 Z3A.33 [id number] Rupesh Diana MD [place] [address],[place] [address] 07/25/2024 14:02:42 07/25/2024 15:51:29 Routine care 873491463 Z34.92 Health Concerns Section Related Observation LastModified by Organization Detai ls LastModified Time None Recorded Concern Status LastModified by Organization Details LastModified Time None Recorded Payers Encounter Date Sequence Insurance Name Policy Number Policy Mclaughlin Covered Member ID Mclaughlin Member ID Guarantor Name 07/25/2024 1 [place] Roseann Mars [id number] Roseann Mars OBGyn Episode Ob Episode Information Episode Created Date Number of Fetuses Patient Bloodtype Patient rh Status Prepregnancy Weight lbs Domestic Partner Domestic Partner Phone Father Name Sheet Metal Helper Status 04/26/20 24 1 A Positive Fanny STamper OPEN Fetus Data First Name Last Name Admitted to NICU Weight (g) Sex Living Outcome Pediatric Complications Fetus ID Race Codes Race Delivery Type 53874 Problems Problem Notes 07/04 Bile acids 10 borderlin e symptomatic 2/26 Bile acids 4 wnl symptomatic Ursodiol 300mg BID Rpt 07/18 Problem Name Start Date End Date Resolution Snomed Code Not e Polymorphic eruption of 1692385759 Treated with topical steroid COVID-19 164644601 bASA daily , serial growth Justus Calculation [...] Weight in lbs Pre/Post Dialysis Refused Weight 109.778463368742 BP Diastolic BP Location Tested BP Systolic [...] Type Weight in lbs Pre/Post Dialysis Refused 112.307485683640 BP Diastolic BP Location Tested BP Systolic [...] Weight in lbs Pre/Post Dialysis Refused Weight 112.060819395212 BP Diastolic BP Location Tested BP Systolic [...] Type Weight in lbs Pre/Post Dialysis Refused 112.036967710901 BP Diastolic BP Location Tested BP Systolic [...] Weight in lbs Pre/Post Dialysis Refused Weight 115.849012590229 BP Diastolic BP Location Tested BP Systolic [...] Type Weight in lbs Pre/Post Dialysis Refused 116.67893104828 BP Diastolic BP Location Tested BP Systolic [...]
[2024-07-26] MEDS: BETAMETHASONE SOD PHOS/ACETATE 30 MG/5 ML VIAL 12 MG IM (18:54)
--- NOTE | 2024-07-26 19:00 | OBADM ---
This patient, Roseann Mars, admitted to the OB room OB Post 117 for observation. Patient/family oriented to hospital policies and general routines including ID bracelet, bed and alarms, visiting hours, pain management, procedures, bathroom and other care routines, personal items, smoking policy, room service/diet, and visiting hours. Patient/Family are encouraged to report perceived risks to care and to ask questions if they do not understand what they are told or what they should do.
[2024-07-26] MEDS: NIFEdipine 30 MG TAB.ER.24 60 MG PO (19:35)
--- NOTE | 2024-08-21 09:45 | PM.OBTRLD ---
OB - Triage/Final Diagnosis Visit Information Comments/Additional reasons for admission: I have assessed the risk for this patient, Roseann Mars, and determined that she would benefit from observation care. Final Diagnosis (1) False labor: Code(s): O47.9 - False labor, unspecified Status: Acute
== END 2024-07-27 03:12 | disposition home or self-care (01) ==
PROVIDERS: Admitting Provider Obstetrics & Gynecology; Visit Provider Obstetrics & Gynecology
DX: O47.03 False labor before 37 completed weeks of gestation, third trimester (principal); Z3A.33 33 weeks gestation of pregnancy
CPT/HCPCS: 96372; A9270; G0378; G0379; J0702

== ENCOUNTER 2024-08-17 06:34 | Inpatient (IN) | payer MEDICARE, MEDICAID, SELFPAY ==
[2024-08-17] VITALS (159 sets, daily range): BP systolic 82–158; BP diastolic 51–118; PULSE 58–248; RESP 18–20; TEMP 36.3–37.1; O2SAT 80–100; BMI 21.9
--- OUTSIDE RECORDS SUMMARY | 2024-08-17 06:39 | XMS_ITS | CONTINUITY OF CARE DOCUMENT ---
Author Name lucio valdes Address Unknown Organization [facility] Address [address] [place] [address] Phone [phone] Care Team Providers Care Glueline Worker Name Role Phone Amparo Darden MD Unavailable Amparo Darden MD Unavailable INSURANCE PROVIDERS Payer name Policy type / Coverage type [place] red republican ID MED[place]ID [place] Medicaid [facility] Other [id number] [place] MEDICARE Medicare [id number]
--- OUTSIDE RECORDS SUMMARY | 2024-08-17 06:39 | XMS_ITS | Clinical Summary ---
Author Organization [facility] Address [address] [place] [address] Care Team Providers Care Carcass Trimmer Name Role Phone Unavailable Primary Care Provider Unavailabl e Source Comments [facility],non-owned Affiliates and Associated Physician Practices is amultiple site organization consisting of ambulatory clinics and hospital sitesin [place], [place], [place] and [place]. This disclosure is being madepursuant to the Care Everywhere program and may not contain all information available regarding this patient. Last updated 18.[facility] Allergies No known active allergies Medications * Be aware that medications may not be up to date on this document. Alwaysverify current medications with the patient. Medication Sig Dispensed Refills Start Date End Date Status drospirenone-ethinyl estradiol (SANDRA) 3-0.02 MG tabletIndications:Abn ormal menstrual periods Take 1 tablet by mouth once daily 1 packet 11 04/16/2020 Active ammonium lactate (LAC-HYDRIN) 12 % lotionIndications:Str etch huddleston Apply to affected area 2 times daily 400 g 4 04/16/2020 Active albuterol HFA (PROVENTIL;VENTOLIN;P ROAIR) 108 (90 Base) MCG/ACT inhalerIndications:Mi ld intermittent asthma without complication (HCC),Wheezing Inhale 2 puffs by mouth every 4 hours as needed for Wheezing 3 Inhaler 4 04/16/2020 Active Active Problems No known active problems Encounters Date Type Department Care Team Description 08/02/2024 Travel from Last 3 Months Social History Tobacco Use Types Packs/Day Years Used Date Smoking Tobacco: Never Smokeless Tobacco: Never Alcohol Use Standard Drinks/Week Comments Not Currently 0 (1 standard drink = 0.6 oz pur e alcohol) Formally used alcohol Sex and Gender Information Value Date Recorded Sex Assigned at Not on file Gender Identity Not on file Sexual Orientation Not on file Last Filed Vital Signs Vital Sign Reading Time Taken Comments Blood Pressure 102/62 04/16/2020 1:52 PM COAL EQUIPMENT OPERATOR Pulse 119 04/16/2020 1:52 PM COAL EQUIPMENT OPERATOR Temperature 36.4 C (97.5 F) 04/16/2020 1:52 PM COAL EQUIPMENT OPERATOR Respiratory Rate 18 04/16/2020 1:52 PM COAL EQUIPMENT OPERATOR Oxygen Saturation 96% 04/16/2020 1:52 PM COAL EQUIPMENT OPERATOR Inhaled Oxygen Concentration - - Weight 45.6 kg (100 lb 9.6 oz) 04/16/2020 1:52 P M COAL EQUIPMENT OPERATOR Height 162.6 cm (5' 4 ) 04/16/2020 1:52 PM COAL EQUIPMENT OPERATOR Body Mass Index 17.27 04/16/2020 1:52 PM COAL EQUIPMENT OPERATOR Plan of Treatment Upcoming Encounters Date Type Department Care Team (Late st Contact Info) Description 12/09/2024 3:00 PM CDT Office Visit [facility] [address], [facility] [place] [id number] Haris Guerra MD [address] [place] [id number] Health Maintenance Due Date Last Done Comments PAP SMEAR 1999 HIV SCREENING 2014 HPV VACCINE (1 - 3-dose series) 2014 CHLAMYDIA/GONORRHEA SCREENING 2015 HEPATITIS C SCREENING 05/03/2017 DTAP/TDAP/TD VACCINES (1 - Tdap) 2018 HEPATITIS B VACCINE (1 of 3 - 19+ 3-dose series) 2018 COVID-19 VACCINE (1 - 2023-2 5 season) 2024 DEPRESSION SCREENING 05/15/2024 INFLUENZA VACCINE (Season Ended) 2025 ZOSTER VACCINE (1 of 2) 2049 HIB VACCINE Aged Out No longer eligi ble based on patient's age to complete this topic MENINGOCOCCAL (Group B) VACC INE SHARED DECISION-MAKING Aged Out No longer eligibl e based on patient's age to complete this topic MENINGOCOCCAL GROUPS A/C/Y/W VACCINE Aged Out No longer eligible b ased on patient's age to complete this topic PNEUMOCOCCAL VACCINE Aged Out No long er eligible based on patient's age to complete this topic LAZARO PINEDA Personal/Family Father 2000 [id number] [address] [id number] Yovany Mars Personal/Family Mother [id number] [address] [phone] Roseann Mars Personal/Family Self 2000
--- OUTSIDE RECORDS SUMMARY | 2024-08-17 06:39 | XMS_ITS | Data Portability ---
Author Organization [facility] Address [address] [place] [address] Assessment Encounter Date Assessment Date Assessment LastModified by Organization Details LastModified Time 08/01/2024 08/01/2024 Patient is ___weeks . Discussed plan. Not available 08/01/2024 11:42:52 Plan of Treatment Reminders Order Date Submit Date Provider Last Modified By Organization Details Last Modified Time Details Appointments INDUCTI ON 2024 06:30A Ulises THOMAS MD Not available Not available [...] d. Imaging non-str ess test [email or web address], [address], [place], [address], 08/02/2024 08:08:48 [place], obstetr ic, follow- up [address], [address], [place], [address], 08/01/2024 20:59:59 US, obstetr ic, biophys ical profile + non-str ess test [address], [address], [place], [address], 08/01/2024 20:59:59 US, obstetr ic, biophys ical profile + non-str ess test [address], [address], [place], [address], 07/27/2024 10:55:25 non-str ess test 2024 025 [facility] [place], [address], [place], [address], 07/26/2024 03:26:37 Medication Orders None recorde d. Patient TargetsNo targets recorded. Patient InstructionsNo instructions recorded. Reason for Referral None Reported. Results Created Date Observation Date Name Description Value Unit Range Abnormal Flag Note LastModifiedBy Organization Detail LastModifiedTime 07/04/1907/04/2024 CBC (HEMO GRAM) WBC 8.9 10'3/ uL 3.5-10 .5 Not Available [facility] (Lab) [address], [place], [address], 07/07/2024 23:58:41 07/04/19 25 07/04/2024 CBC (HEMO GRAM) RBC 3.35 10'6/ uL (based on docume nted legal sex) 3.80-5 .20 low Not Available [facility] (Lab) [address], [place], [address], 07/07/2024 23:58:41 07/04/19 25 07/04/2024 CBC (HEMO GRAM) HGB 10.9 g/dL (based on docume nted legal sex) 11.6-1 5.4 low Not Available [facility] (Lab) [address], [place], [address], 07/07/2024 23:58:41 07/04/19 25 07/04/2024 CBC (HEMO GRAM) HCT 33.5 % (based on docume nted legal sex) 34.0-4 5.0 low Not Available [facility] (Lab) [address], [place], [address], 07/07/2024 23:58:41 07/04/19 25 07/04/2024 CBC (HEMO GRAM) MCV 100.0 fL 80.0-9 9.0 high Not Available [facility] (Lab) [address] [place], [address], 07/07/2024 23:58:41 07/04/19 25 07/04/2024 CBC (HEMO GRAM) MCH 32.5 pg 27.0-3 4.0 Not Available [facility] (Lab) [address] [place], [address], 07/07/2024 23:58:41 07/04/19 25 07/04/2024 CBC (HEMO GRAM) MCHC 32.5 g/dL 32.0-3 5.5 Not Available [facility] (Lab) [address] [place], [address], 07/07/2024 23:58:41 07/04/19 25 07/04/2024 CBC (HEMO GRAM) RDW 12.7 % 11.0-1 5.0 Not Available [facility] (Lab) [address], [place], [address], 07/07/2024 23:58:41 07/04/19 25 07/04/2024 CBC (HEMO GRAM) plt 478 10'3/ uL 150-40 0 high Not Available [facility] (Lab) [address], [place], [address], 07/07/2024 23:58:41 07/04/19 25 07/04/2024 CBC (HEMO GRAM) MPV 9.7 fL 8.8-12 .1 Refer ence range s for nonbi nary/ inter sex or unspe cifie d gende r patie nts have not been estab lishe d. Pleas e [facility] table for range s estab lishe d for cisge nder patie nts and evalu ate in the clini safia casey xt of the indiv idual patie nt: https ://albertina brady book. nm.or g/gen derx Not Available [facility] (Lab) [address], [place], [address], 07/07/2024 23:58:41 07/04/19 25 07/04/2024 GTT - GESTA ALIYAH Joshua Srinivasan, ACOG OB glucose, 1 hour screen 98 mg/dL 70-135 Not Available [facility] (Lab) [address] [place], [address], 07/07/2024 23:58:42 07/04/19 25 07/04/2024 CMP WITH BUN/C REAT RATIO sodium 136 mmol/ L 133-14 6 Not Available [facility] (Lab) [address] [place], [address], 07/07/2024 23:58:42 07/04/19 25 07/04/2024 CMP WITH BUN/C REAT RATIO potassium 3.5 mmol/ L 3.5-5. 1 Not Available [facility] (Lab) [address] [place], [address], 07/07/2024 23:58:42 07/04/19 25 07/04/2024 CMP WITH BUN/C REAT RATIO chloride 104 mmol/ L 98-107 Not Available [facility] (Lab) [address], [place], [address], 07/07/2024 23:58:42 07/04/19 25 07/04/2024 CMP WITH BUN/C REAT RATIO carbon dioxide 27 mmol/ L 21-31 Not Available [facility] (Lab) [address], [place], [address], 07/07/2024 23:58:42 07/04/19 25 07/04/2024 CMP WITH BUN/C REAT RATIO anion gap 5 mmol/ L 4-13 Not Available [facility] (Lab) [address], [place], [address], 07/07/2024 23:58:42 07/04/19 25 07/04/2024 CMP WITH BUN/C REAT RATIO blood urea nitrogen 8 mg/dL 7-25 Not Available [facility] (Lab) [address], [place], [address], 07/07/2024 23:58:42 07/04/19 25 07/04/2024 CMP WITH BUN/C REAT RATIO creatinine 0.41 mg/dL 0.60-1 .30 low Not Available [facility] (Lab) [address], [place], [address], 07/07/2024 23:58:42 07/04/19 25 07/04/2024 CMP WITH BUN/C REAT RATIO egfrcr (CKD-epi 2020) >90 mL/mi n/1.7 3_m2 >=60 Not Available [facility] (Lab) [address], [place], [address], 07/07/2024 23:58:42 07/04/19 25 07/04/2024 CMP WITH BUN/C REAT RATIO BUN/creatini ne ratio 19.5 . 10.0-2 2.0 Not Available [facility] (Lab) [address], [place], [address], 07/07/2024 23:58:42 07/04/19 25 07/04/2024 CMP WITH BUN/C REAT RATIO calcium 8.4 mg/dL 8.3-10 .5 Not Available [facility] (Lab) [address], [place], [address], 07/07/2024 23:58:42 07/04/19 25 07/04/2024 CMP WITH BUN/C REAT RATIO glucose 98 mg/dL 70-100 Not Available [facility] (Lab) [address], [place], [address], 07/07/2024 23:58:42 07/04/19 25 07/04/2024 CMP WITH BUN/C REAT RATIO protein, total 6.3 g/dL 6.4-8. 3 low Not Available [facility] (Lab) [address] [place], [address], 07/07/2024 23:58:42 07/04/19 25 07/04/2024 CMP WITH BUN/C REAT RATIO albumin 3.3 g/dL 3.5-5. 0 low Not Available [facility] (Lab) [address] [place], [address], 07/07/2024 23:58:42 07/04/19 25 07/04/2024 CMP WITH BUN/C REAT RATIO ALT 22 units /L 9-43 Not Available [facility] (Lab) [address], [place], [address], 07/07/2024 23:58:42 07/04/19 25 07/04/2024 CMP WITH BUN/C REAT RATIO alkaline phosphatase 99 units /L 34-104 Not Available [facility] (Lab) [address] [place], [address], 07/07/2024 23:58:42 07/04/19 25 07/04/2024 CMP WITH BUN/C REAT RATIO AST 27 units /L 13-39 Not Available [facility] (Lab) [address] [place], [address], 07/07/2024 23:58:42 07/04/19 25 07/04/2024 CMP WITH BUN/C REAT RATIO bilirubin, total 0.3 mg/dL 0.2-1. 2 Not Available [facility] (Lab) [address], [place], [address], 07/07/2024 23:58:42 07/04/19 25 07/04/2024 BILE ACIDS , TOTAL bile acids, total 10 umol/ L 0-10 Test Perfo rmed by: Carmelo Veronica [facility] [address] [address] Not Available [facility] (Lab) [address] [place], [address], 07/07/2024 23:58:42 07/10/19 25 07/10/2024 CBC (HEMO GRAM) WBC 7.9 10'3/ uL 3.5-10 .5 Not Available [facility] (Lab) [address] [place], [address], 07/11/2024 19:03:59 07/10/19 25 07/10/2024 CBC (HEMO GRAM) RBC 3.23 10'6/ uL (based on docume nted legal sex) 3.80-5 .20 low Not Available [facility] (Lab) [address] [place], [address], 07/11/2024 19:03:59 07/10/19 25 07/10/2024 CBC (HEMO GRAM) HGB 10.5 g/dL (based on docume nted legal sex) 11.6-1 5.4 low Not Available [facility] (Lab) [address] [place], [address], 07/11/2024 19:03:59 07/10/19 25 07/10/2024 CBC (HEMO GRAM) HCT 31.5 % (based on docume nted legal sex) 34.0-4 5.0 low Not Available [facility] (Lab) [address], [place], [address], 07/11/2024 19:03:59 07/10/19 25 07/10/2024 CBC (HEMO GRAM) MCV 97.5 fL 80.0-9 9.0 Not Available [facility] (Lab) [address], [place], [address], 07/11/2024 19:03:59 07/10/19 25 07/10/2024 CBC (HEMO GRAM) MCH 32.5 pg 27.0-3 4.0 Not Available [facility] (Lab) [address], [place], [address], 07/11/2024 19:03:59 07/10/19 25 07/10/2024 CBC (HEMO GRAM) MCHC 33.3 g/dL 32.0-3 5.5 Not Available [facility] (Lab) [address], [place], [address], 07/11/2024 19:03:59 07/10/19 25 07/10/2024 CBC (HEMO GRAM) RDW 12.7 % 11.0-1 5.0 Not Available [facility] (Lab) [address], [place], [address], 07/11/2024 19:03:59 07/10/19 25 07/10/2024 CBC (HEMO GRAM) plt 437 10'3/ uL 150-40 0 high Not Available [facility] (Lab) [address], [place], [address], 07/11/2024 19:03:59 07/10/19 25 07/10/2024 CBC (HEMO GRAM) MPV 9.7 fL 8.8-12 .1 Refer ence range s for nonbi nary/ inter sex or unspe cifie d gende r patie nts have not been estab lishe d. Di alarcon refer to the [facility] table for range s estab lishe d for cisge nder patie nts and evalu ate in the clini safia casey xt of the indiv idual patie nt: https ://albertina brady book. nm.or g/gen derx Not Available [facility] (Lab) [address], [place], [address], 07/11/2024 19:03:59 07/10/19 25 07/10/2024 CMP WITH BUN/C REAT RATIO sodium 139 mmol/ L 133-14 6 Not Available [facility] (Lab) [address] [place], [address], 07/11/2024 19:03:59 07/10/19 25 07/10/2024 CMP WITH BUN/C REAT RATIO potassium 3.9 mmol/ L 3.5-5. 1 Not Available [facility] (Lab) [address] [place], [address], 07/11/2024 19:03:59 07/10/19 25 07/10/2024 CMP WITH BUN/C REAT RATIO chloride 104 mmol/ L 98-107 Not Available [facility] (Lab) [address] [place], [address], 07/11/2024 19:03:59 07/10/19 25 07/10/2024 CMP WITH BUN/C REAT RATIO carbon dioxide 24 mmol/ L 21-31 Not Available [facility] (Lab) [address] [place], [address], 07/11/2024 19:03:59 07/10/19 25 07/10/2024 CMP WITH BUN/C REAT RATIO anion gap 11 mmol/ L 4-13 Not Available [facility] (Lab) [address] [place], [address], 07/11/2024 19:03:59 07/10/19 25 07/10/2024 CMP WITH BUN/C REAT RATIO blood urea nitrogen 6 mg/dL 7-25 low Not Available [facility] (Lab) [address], [place], [address], 07/11/2024 19:03:59 07/10/19 25 07/10/2024 CMP WITH BUN/C REAT RATIO creatinine 0.45 mg/dL 0.60-1 .30 low Not Available [facility] (Lab) [address], [place], [address], 07/11/2024 19:03:59 07/10/19 25 07/10/2024 CMP WITH BUN/C REAT RATIO egfrcr (CKD-epi 2020) >90 mL/mi n/1.7 3_m2 >=60 Not Available [facility] (Lab) [address], [place], [address], 07/11/2024 19:03:59 07/10/19 25 07/10/2024 CMP WITH BUN/C REAT RATIO BUN/creatini ne ratio 13.3 . 10.0-2 2.0 Not Available [facility] (Lab) [address], [place], [address], 07/11/2024 19:03:59 07/10/19 25 07/10/2024 CMP WITH BUN/C REAT RATIO calcium 8.4 mg/dL 8.3-10 .5 Not Available [facility] (Lab) [address], [place], [address], 07/11/2024 19:03:59 07/10/19 25 07/10/2024 CMP WITH BUN/C REAT RATIO glucose 98 mg/dL 70-100 Not Available [facility] (Lab) [address], [place], [address], 07/11/2024 19:03:59 07/10/19 25 07/10/2024 CMP WITH BUN/C REAT RATIO protein, total 6.2 g/dL 6.4-8. 3 low Not Available [facility] (Lab) [address] [place], [address], 07/11/2024 19:03:59 07/10/19 25 07/10/2024 CMP WITH BUN/C REAT RATIO albumin 3.4 g/dL 3.5-5. 0 low Not Available [facility] (Lab) [address] [place], [address], 07/11/2024 19:03:59 07/10/19 25 07/10/2024 CMP WITH BUN/C REAT RATIO ALT 15 units /L 9-43 Not Available [facility] (Lab) [address] [place], [address], 07/11/2024 19:03:59 07/10/19 25 07/10/2024 CMP WITH BUN/C REAT RATIO alkaline phosphatase 95 units /L 34-104 Not Available [facility] (Lab) [address], [place], [address], 07/11/2024 19:03:59 07/10/19 25 07/10/2024 CMP WITH BUN/C REAT RATIO AST 16 units /L 13-39 Not Available [facility] (Lab) [address] [place], [address], 07/11/2024 19:03:59 07/10/19 25 07/10/2024 CMP WITH BUN/C REAT RATIO bilirubin, total 0.4 mg/dL 0.2-1. 2 Not Available [facility] (Lab) [address] [place], [address], 07/11/2024 19:03:59 07/10/19 25 07/10/2024 BILE ACIDS , TOTAL bile acids, total 4 umol/ L 0-10 Test Perfo rmed by: Carmelo sheldon [address] [address] Not Available [facility] (Lab) [address] [place] [facility] [place], [address], 07/11/2024 19:04:00 07/19/19 25 07/18/2024 CMP(C OMPRE HENSI VE METAB OLIC PANEL ) sodium 137 mmol/ L 133-14 6 Not Available [facility] (Lab) [address], [place], [address], 07/19/2024 10:04:14 07/19/19 25 07/18/2024 CMP(C OMPRE HENSI VE METAB OLIC PANEL ) potassium 3.9 mmol/ L 3.5-5. 1 Not Available [facility] (Lab) [address], [place], [address], 07/19/2024 10:04:14 07/19/19 25 07/18/2024 CMP(C OMPRE HENSI VE METAB OLIC PANEL ) chloride 103 mmol/ L 98-107 Not Available [facility] (Lab) [address], [place], [address], 07/19/2024 10:04:14 07/19/19 25 07/18/2024 CMP(C OMPRE HENSI VE METAB OLIC PANEL ) carbon dioxide 27 mmol/ L 21-31 Not Available [facility] (Lab) [address], [place], [address], 07/19/2024 10:04:14 07/19/19 25 07/18/2024 CMP(C OMPRE HENSI VE METAB OLIC PANEL ) anion gap 7 mmol/ L 4-13 Not Available [facility] (Lab) [address], [place], [address], 07/19/2024 10:04:14 07/19/19 25 07/18/2024 CMP(C OMPRE HENSI VE METAB OLIC PANEL ) blood urea nitrogen 9 mg/dL 7-25 Not Available [facility] (Lab) [address], [place], [address], 07/19/2024 10:04:14 07/19/19 25 07/18/2024 CMP(C OMPRE HENSI VE METAB OLIC PANEL ) creatinine 0.45 mg/dL 0.60-1 .30 low Not Available [facility] (Lab) [address], [place], [address], 07/19/2024 10:04:14 07/19/19 25 07/18/2024 CMP(C OMPRE HENSI VE METAB OLIC PANEL ) egfrcr (CKD-epi 2020) >90 mL/mi n/1.7 3_m2 >=60 Not Available [facility] (Lab) [address], [place], [address], 07/19/2024 10:04:14 07/19/19 25 07/18/2024 CMP(C OMPRE HENSI VE METAB OLIC PANEL ) calcium 9.0 mg/dL 8.3-10 .5 Not Available [facility] (Lab) [address], [place], [address], 07/19/2024 10:04:14 07/19/19 25 07/18/2024 CMP(C OMPRE HENSI VE METAB OLIC PANEL ) glucose 73 mg/dL 70-100 Not Available [facility] (Lab) [address], [place], [address], 07/19/2024 10:04:14 07/19/19 25 07/18/2024 CMP(C OMPRE HENSI VE METAB OLIC PANEL ) protein, total 5.8 g/dL 6.4-8. 3 low Not Available [facility] (Lab) [address], [place], [address], 07/19/2024 10:04:14 07/19/19 25 07/18/2024 CMP(C OMPRE HENSI VE METAB OLIC PANEL ) albumin 3.3 g/dL 3.5-5. 0 low Not Available [facility] (Lab) [address], [place], [address], 07/19/2024 10:04:14 07/19/19 25 07/18/2024 CMP(C OMPRE HENSI VE METAB OLIC PANEL ) ALT 8 units /L 9-43 low Not Available [facility] (Lab) [address] [place], [address], 07/19/2024 10:04:14 07/19/19 25 07/18/2024 CMP(C OMPRE HENSI VE METAB OLIC PANEL ) alkaline phosphatase 100 units /L 34-104 Not Available [facility] (Lab) [address], [place], [address], 07/19/2024 10:04:14 07/19/19 25 07/18/2024 CMP(C OMPRE HENSI VE METAB OLIC PANEL ) AST 13 units /L 13-39 Not Available [facility] (Lab) [address], [place], [address], 07/19/2024 10:04:14 07/19/19 25 07/18/2024 CMP(C OMPRE HENSI VE METAB OLIC PANEL ) bilirubin, total 0.3 mg/dL 0.2-1. 2 Not Available [facility] (Lab) [address], [place], [address], 07/19/2024 10:04:14 07/19/19 25 07/18/2024 BILE ACIDS , TOTAL bile acids, total 7 umol/ L 0-10 Test Perfo rmed by: Carmelo Veronica [facility] [address] Not Available [facility] (Lab) [address] [place], [address], 07/19/2024 10:04:14 07/04/19 25 07/04/2024 US, obste tric, follo w-up No observ ation record ed. [email or web address] [place] [address], [place], [address], 07/04/2024 12:07:16 07/04/19 07/04/2024 US, obste tric, follo w-up No observ ation record ed. [email or web address] [address], [place], [address], 07/05/2024 12:46:14 07/08/19 25 07/08/2024 non-s tress test No observ ation record ed. [address], [place], [address], 07/16/2024 15:52:02 07/10/19 25 07/10/2024 US, obste tric, bioph ysica l profi le + non-s tress test No observ ation record ed. [email or web address] [place] [address], [place], [address], 07/10/2024 11:13:32 07/10/19 25 07/10/2024 US, obste tric, follo w-up No observ ation record ed. [email or web address] [address], [place], [address], 07/11/2024 09:31:09 07/12/19 25 07/10/2024 non-s tress test No observ ation record ed. [email or web address] [place] [address], [place], [address], 07/12/2024 18:29:15 07/12/19 25 07/10/2024 non-s tress test No observ ation record ed. [email or web address] [place] [address], [place], [address], 07/12/2024 18:29:51 07/19/19 25 07/18/2024 non-s tress test No observ ation record ed. [email or web address] [place] [address], [place], [address], 07/18/2024 11:49:31 07/19/19 25 07/18/2024 US, obste tric, bioph ysica l profi le + non-s tress test No observ ation record ed. [email or web address] [place] [address], [place], [address], 07/18/2024 15:30:06 07/19/19 25 07/18/2024 US, obste tric, follo w-up No observ ation record ed. [email or web address] [address], [place], [address], 07/19/2024 17:30:44 07/26/19 25 07/25/2024 non-s tress test No observ ation record ed. [email or web address] [place] [address], [place], [address], 07/25/2024 14:39:24 07/26/19 25 07/25/2024 US, obste tric, bioph ysica l profi le + non-s tress test No observ ation record ed. [email or web address] [place] [address], [place], [address], 07/25/2024 16:46:47 07/26/19 25 07/25/2024 US, obste tric, bioph ysica l profi le + non-s tress test No observ ation record ed. [email or web address] [address], [place], [address], 07/28/2024 23:18:43 07/27/19 25 07/26/2024 non-s tress test No observ ation record ed. [address], [place], [address], 07/30/2024 15:33:33 08/02/19 25 08/01/2024 US, obste tric, follo w-up No observ ation record ed. [email or web address] [place] [address], [place], [address], 08/01/2024 13:56:34 08/02/19 25 08/01/2024 US, obste tric, bioph ysica l profi le + non-s tress test No observ ation record ed. [email or web address] [place] [address], [place], [address], 08/01/2024 13:56:52 08/02/19 25 08/01/2024 US, obste tric, follo w-up No observ ation record ed. [email or web address] [address], [place], [address], 08/06/2024 18:27:47 08/02/19 25 08/01/2024 non-s tress test No observ ation record ed. [email or web address] [place] [address], [place], [address], 08/01/2024 11:48:41 Result Notes None recorded. Problems Name Problem SNOMED Code Status Onset Date Resolution Date Notes Provider Name and Address Organization Details Recorded Time 76403887 Active 2023 Sonia Brand null, [facility] 4 16:38:57 COVID-19 931318767 Active [facility] daily, serial growth Olga Benitez [facility], [facility] 5 14:59:04 COVID-19 104464612 Active [facility] daily, serial growth Olga Benitez null, [facility] 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 5 11:50:08 Cholestasi s of 710693648 Active Brittani Mazariegostz null, [place] - [facility] 12:31:07 Cholestasi s of 364631256 Active Brittani Mazariegostz null, [facility] 12:31:07 Problem Notes None recorded. Procedures Surgical History None recorded. Imaging Results Imaging Date Name Status LastModified by Organiz ation Details LastModified Time 07/04/2024 US, obstetric, follow-up completed [address], [place], [address], 07/04/2024 12:07:16 07/04/2024 US, obstetric, follow-up completed [email or web address] [address], [place], [address], 07/05/2024 12:46:14 07/08/2024 non-stress test completed [address], [place], [address], 07/16/2024 15:52:02 07/10/2024 US, obstetric, biophysical profile + non-stress test completed [address], [place], [address], 07/10/2024 11:13:32 07/10/2024 US, obstetric, follow-up completed [email or web address] [address], [place], [address], 07/11/2024 09:31:09 07/10/2024 non-stress test completed [email or web address] [place] [address], [place], [address], 07/12/2024 18:29:15 07/10/2024 non-stress test completed [email or web address] [place] [address], [place], [address], 07/12/2024 18:29:51 07/18/2024 non-stress test completed [email or web address] [place] [address], [place], [address], 07/18/2024 11:49:31 07/18/2024 US, obstetric, biophysical profile + non-stress test completed [address], [place], [address], 07/18/2024 15:30:06 07/18/2024 US, obstetric, follow-up completed [email or web address] [address], [place], [address], 07/19/2024 17:30:44 07/25/2024 non-stress test completed [email or web address] [place] [address], [place], [address], 07/25/2024 14:39:24 07/25/2024 US, obstetric, biophysical profile + non-stress test completed [facility] [address], [place], [address], 07/25/2024 16:46:47 07/25/2024 US, obstetric, biophysical profile + non-stress test completed [email or web address] [address], [place], [address], 07/28/2024 23:18:43 07/26/2024 non-stress test completed [address], [place], [address], 07/30/2024 15:33:33 08/01/2024 US, obstetric, follow-up completed [address], [place], [address], 08/01/2024 13:56:34 08/01/2024 US, obstetric, biophysical profile + non-stress test completed [address], [place], [address], 08/01/2024 13:56:52 08/01/2024 US, obstetric, follow-up active [email or web address] [address], [place], [address], 08/06/2024 18:27:47 08/01/2024 non-stress test completed [email or web address] [place] [address], [place], [address], 08/01/2024 11:48:41 Procedure Notes None recorded. Medical Equipment None Reported. Allergies No known drug allergies Medications Name Sig Start Date Stop Date Status Note LastModified by Organization Details LastModified Time terbutaline 2.5 mg tablet Take 1 tablet 3 times a day by oral route. 2024 active Not Available Not Available Not Avai lable metronidazo le 0.75 % (37.5 mg/5 gram) [...] Address Organization Details Last Updated DateTime 07/25/2024 35154.7149 2 g 99 mm[Hg] 65 mm[Hg] Sonia Brand [place] - [facility] 07/25/2024 15:27:05 Date Recorded Body height Body mass index (BMI) Body weight Systolic blood pressure Diastolic blood pressure Provider Name and Address Organization Details Last Updated DateTime 08/01/2024 162.56 cm 19.4 kg/m2 43140.94 g 97 mm[Hg] 67 mm[Hg] Sonia Brand [facility] 11:44:57 Social History Question Answer Notes LastModified by Organizat ion Details LastModified Time Tobacco Smoking Status Current Every Day Smoker Sonia Sunday [facility], [facility] 04/26/2024 16:36:49 What Is Your [...] Or The Highest Degree You Have Received? [id number] Information not available 04/26/2024 Are There Any [...] Anxious, Or Unable To Sleep At Night)? [id number] Information not available 04/26/2024 Do You Use [...] SNOMED-CT Code Diagnosis ICD10 Code Diagnosis Note [id number] [facility] [address],[place] [address] 02/22/2024 09:46:25 02/22/2024 10:30:52 screening 472714855 Z36.82 Z36.87 Z3A.11 [id number] Rupesh Thomas MD [place] [address],[place] [address] 04/26/2024 15:51:28 04/29/2024 08:15:48 Routine care 795312584 Z34.92 [id number] [place] [address],[place] [address] 05/02/2024 11:44:52 05/02/2024 12:58:33 screening for malformation 612748690 Z36.3 Z3A.21 [id number] [place] [address],[place] [address] 07/04/2024 10:30:25 07/04/2024 11:08:26 condition affecting obstetrical care of mother 550182039 O35.3XX0 O36.5930 Z3A.30 [id number] Rupesh Thomas MD [place] [address],[place] [address] 07/04/2024 10:30:51 07/04/2024 11:56:26 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 [id number] LEXIE SILVA MD [facility] [address],[place] [address] 07/10/2024 09:47:25 07/12/2024 07:36:38 Polymorphic eruption of 7643516578 O26.86 - concern for possible ICP due to itching distributi on- bile acids 10 last week, repeat today- repeat bile acids today- starting testing- start ursodiol Gestation period, 31 weeks 56587820 Z3A.31 [id number] LEXIE SILVA MD [place] [address],[place] [address] 07/10/2024 09:48:03 07/16/2024 03:54:15 Cholestasis of 318232660 O26.613 [id number] [facility] [address],[place] [address] 07/10/2024 09:48:28 07/10/2024 11:08:13 Cholestasis of 449821089 Z3A.31 [id number] [facility] [address],[place] [address] 07/18/2024 10:52:30 07/18/2024 11:50:50 Cholestasis of 459480505 Z3A.31 [id number] [facility] [address],[place] [address] 07/18/2024 10:53:20 07/18/2024 12:40:30 Cholestasis of 830126505 Z3A.31 Z3A.32 [id number] Rupesh Thomas MD [place] [address],[place] [address] 07/18/2024 10:53:44 07/18/2024 13:19:02 Cholestasis of 063272780 Z3A.31 Z3A.32 [id number] [facility] [address],[place] [address] 07/25/2024 13:55:22 07/25/2024 14:43:35 Cholestasis of 848236276 Z3A.31 Z3A.32 [id number] [facility] [address],[place] [address] 07/25/2024 13:56:54 07/25/2024 15:11:18 Cholestasis of 084964323 O26.613 Z3A.33 [id number] Rupesh Thomas MD [place] [address],[place] [address] 07/25/2024 14:02:42 07/25/2024 15:51:29 Routine care 523447105 Z34.92 [id number] Rupesh Thomas MD [place] [address],[place] [address] 08/01/2024 10:20:26 08/01/2024 12:22:18 Routine care 320401906 Z34.92 [id number] Kylah Kang [place] [address],[place] [address] 08/01/2024 10:19:08 08/01/2024 11:26:09 Small for gestational age fetus 141697736 O36.5930 O26.643 Z3A.34 [id number] Bhavna Pedraza [place] [address],[place] [address] 08/01/2024 10:20:09 08/01/2024 11:50:14 Cholestasis of 144819005 O26.613 Z3A.33 Health Concerns Section Related Observation LastModified by Organization Detai ls LastModified Time None Recorded Concern Status LastModified by Organization Details LastModified Time None Recorded Advance Directives Directive None Recorded Payers Encounter Date Sequence Insurance Name Policy Number Policy Mclaughlin Covered Member ID Mclaughlin Member ID Guarantor Name 07/25/2024 1 [place] Roseann E Mars [id number] 9 Roseann Mars 07/25/2024 1 [place] Roseann E Mars [id number] 9 Roseann Mars 08/01/2024 1 [place] Roseann E Mars [id number] 9 Roseann Mars 08/01/2024 1 [place] Roseann E Mars [id number] 9 Roseann Mars 08/01/2024 1 [place] Roseann E Mars [id number] 9 Roseann Mars OBGyn Episode Ob Episode Information Episode Created Date Number of Fetuses Patient Bloodtype Patient rh Status Prepregnancy Weight lbs Domestic Partner Domestic Partner Phone Father Name Science Liaison Status 04/26/20 24 1 A Positive Fanny STamper OPEN Fetus Data First Name Last Name Admitted to NICU Weight (g) Sex Living Outcome Pediatric Complications Fetus ID Race Codes Race Delivery Type [id number] Problems Problem Notes 07/04 Bile acids 10 borderlin e symptomatic 07/10 Bile acids 4 wnl symptomatic Ursodiol 300mg BID Rpt 07/18 decreased wnl Problem Name Start Date End Date Resolution Snomed Code Not e Polymorphic eruption of 7220982932 Treated with topical steroid Cholestasis of 070566783 COVID-19 443199122 bASA daily , serial growth Justus Calculation [...] Weight in lbs Pre/Post Dialysis Refused Weight 109.392707902405 BP Diastolic BP Location Tested BP Systolic [...] Type Weight in lbs Pre/Post Dialysis Refused 112.563580015203 BP Diastolic BP Location Tested BP Systolic [...] Weight in lbs Pre/Post Dialysis Refused Weight 112.341399067622 BP Diastolic BP Location Tested BP Systolic [...] Type Weight in lbs Pre/Post Dialysis Refused 112.749631709807 BP Diastolic BP Location Tested BP Systolic [...] Weight in lbs Pre/Post Dialysis Refused Weight 115.637337218915 BP Diastolic BP Location Tested BP Systolic [...] Type Weight in lbs Pre/Post Dialysis Refused 116.11786393416 BP Diastolic BP Location Tested BP Systolic BP Type 65 L arm 99 sitting Fetus Heart Rate Present A 145 Fetus Movement A Yes Comments patient reports a lot of pre ssure and episodes of repetitive contractions that are painful. Cervical exam showed a very low presenting part. To receive steroids in labor and delivery today and tomorrow Flowsheet Date 08/01/2024 Mc Score Blood Edema Fundus Height Fundus Units Glucose Ketones Leukocytes Nitrite Labor Signs Protein Cervic Dilation Cervic Effacement Cervic Station Type Weight in lbs Pre/Post Dialysis Refused BP Diastolic BP Location Tested BP Systolic BP Type Fetus Heart Rate Present Fetus Movement Comments Flowsheet Date 08/01/2024 Mc Score Blood Edema Fundus Height Fundus Units Glucose Ketones Leukocytes Nitrite Labor Signs Protein Cervic Dilation Cervic Effacement Cervic Station Type Weight in lbs Pre/Post Dialysis Refused BP Diastolic BP Location Tested BP Systolic BP Type Fetus Heart Rate Present Fetus Movement Comments Flowsheet Date 08/01/2024 Mc Score Blood Edema Fundus Height Fundus Units Glucose Ketones Leukocytes Nitrite Labor Signs Protein Cervic Dilation Cervic Effacement Cervic Station 34 cm Type Weight in lbs Pre/Post Dialysis Refused Weight 113.750389989452 BP Diastolic BP Location Tested BP Systolic BP Type 67 L arm 97 sitting Fetus Heart Rate Present A 145 Fetus Movement A Yes Comments The patient continues to con tract, at times they are painful, she is using nifedipine. She continues to contract despite treatment with nifedipine, to add p.r.n. terbutaline. Cervix is very posterior. Baby is low. Given precautions on labor. Menstrual History Last Menstrual Date Menses Monthly [...] Domestic Partner Domestic Partner Phone Father Name Science Liaison Status 04/26/20 24 1 CLOSED Fetus Data First Name Last Name Admitted to NICU Weight (g) Sex Living Outcome Pediatric Complications Fetus ID Race Codes Race Delivery Type F Full Term [id number] Vaginal Delivery Justus Calculation Initial Justus Date [...]
[2024-08-17 07:27] LABS: Basophils Percent Auto 0.3 % (0.2-1.2); Eosinophils Absolute Auto 0.1 K/mm3 (0-0.3); Eosinophils Percent Auto 1.7 % (0-4.4); Hematocrit 30.6 % (37.0-47.0); Hemoglobin 10.1 g/dL (12.0-15.0); Immature Granulocyte Absolute 0.03 K/mm3 (0.00-0.031); Immature Granulocyte Percent A 0.5 % (0-0.5); Lymphocytes Absolute Auto 1.59 K/mm3 (0.9-3.2); Lymphocytes Percent Auto 24.5 % (18.3-44.2); Mean Corpuscular Hemoglobin 31.5 pg (26-34); Mean Corpuscular Volume 95.3 fl (80-100); Mean Platelet Volume 9.4 fl (7.4-10.4); Monocytes Absolute Auto 0.5 K/mm3 (0.1-0.6); Monocytes Percent Auto 7.4 % (2.6-8.5); Neutrophils Absolute Auto 4.3 K/mm3 (1.3-6.7); Neutrophils Percent Auto 65.6 % (45.5-73.1); Platelet Count Result 374 k/mm3 (150-375); Red Blood Count 3.21 M/mm3 (4.2-5.4); Red Cell Distribution Width 13.1 % (11.5-14.5); White Blood Count 6.5 K/mm3 (4.5-10.0)
[2024-08-17] MEDS: miSOPROStol 25 MCG TABLET 50 MCG BUCCAL (08:00)
--- NOTE | 2024-08-17 08:04 | LDADM ---
This patient, Roseann Mars, was admitted to Labor/Delivery/Recovery 107 on 08/17/24 at 06:34. Plans for labor, pain management and were discussed with patient. Patient/family oriented to hospital policies and general routines including ID bracelet, bed and alarms, visiting hours, pain management, procedures, bathroom and other care routines, personal items, smoking policy, room service/diet and guest tray routines, infant security routines, and visiting hours. Patient/Family are encouraged to report perceived risks to care and to ask questions if they do not understand what they are told or what they should do. See OBIX for further documentation.
[2024-08-17 08:17] LABS: HIV 1/2 Ab P24 Ag Result Negative (Negative)
[2024-08-17 08:20] LABS: Syphilis IgG/IgM Antibody Negative (Negative)
--- NOTE | 2024-08-17 10:52 | WPDHPUPDATE1 ---
History and Physical Update Update Date/Time: 08/17/24 10:52 24-year-old multiparous female at 37 weeks gestation presents for induction of labor for cholestasis of . Treated with Cytotec initially. Fingertip cervix. Active management of labor. To follow Cytotec with artificial rupture membranes and Pitocin. Reassuring status. History and Physical has been reviewed, including an updated exam of the patient. There are NO changes in the patient's condition. Risks, benefits, and alternatives have been discussed and questions answered. Patient agrees to proceed with procedure.
[2024-08-17] MEDS: OXYTOCIN 30 UNITS/NS 500 ML 30 UNITS/500 ML BAG IV CONT (12:02)
[2024-08-17] MEDS: AMPICILLIN 2 GM/NS 100 ML 2 GM/100 ML BAG IVPB (12:03)
[2024-08-17] MEDS: LACTATED RINGERS 1,000 ML 125 ML IV CONT (12:05)
--- NOTE | 2024-08-17 16:08 | WPDANESEPP ---
Anes - Eval Pre Procedure Procedure: labor epidural Date/Time: 08/17/24 16:08 Preop Diagnosis: labor pain Pre Op Diagnosis: IOL Patient Data Age: 24 Gender: F Height: 1.6 m Weight: 56 kg Last Vital Signs Temp 36.4 C 08/17/24 14:00 Pulse 97 08/17/24 16:01 Resp 20 08/17/24 14:00 BP 158/118 H 08/17/24 16:01 Pulse Ox 97 08/17/24 13:39 O2 Del Method Room Air 08/17/24 08:24 Allergies Allergy/AdvReac Type Severity Reaction Status Date / Time No Known Allergies Allergy Verified 07/25/24 17:28 Home Medications ?Medication ?Instructions ?Recorded ?Confirmed ?Type nitrofurantoin 100 mg PO Q12H 7 days #14 caps 06/17/24 07/25/24 Rx monohydrate/macrocrystals 100 mg capsule (Macrobid) vit no.95-ferrous 1 tablet PO DAILY 06/17/24 07/25/24 History fumarate 28 mg-folic acid 800 mcg tablet () acetaminophen 325 mg tablet 325 mg PO Q6H PRN headache 07/25/24 07/25/24 History (Aminofen) ursodiol 300 mg capsule 300 mg PO Q12H 07/25/24 07/25/24 History nifedipine 60 mg tablet,extended 60 mg PO DAILY #15 tabs 07/26/24 Rx release Laboratory Tests 08/17/24 07:21 WBC 6.5 K/mm3 (4.5-10.0) RBC 3.21 L M/mm3 (4.2-5.4) Hgb 10.1 L D g/dL (12.0-15.0) Hct 30.6 L % (37.0-47.0) MCV 95.3 fl (80-100) MCH 31.5 pg (26-34) MCHC 33.0 g/dl (32-36) RDW 13.1 % (11.5-14.5) Plt Count 374 k/mm3 (150-375) MPV 9.4 fl (7.4-10.4) Immature Gran % (Auto) 0.5 % (0-0.5) Neut % (Auto) 65.6 % (45.5-73.1) Lymph % (Auto) 24.5 % (18.3-44.2) Bee % (Auto) 7.4 % (2.6-8.5) Eos % (Auto) 1.7 % (0-4.4) Baso % (Auto) 0.3 % (0.2-1.2) Lymph # (Auto) 1.59 K/mm3 (0.9-3.2) Bee # (Auto) 0.5 K/mm3 (0.1-0.6) Eos # (Auto) 0.1 K/mm3 (0-0.3) Baso # (Auto) 0.0 K/mm3 (0.0-0.1) Abs Immat Gran (auto) 0.03 K/mm3 (0.00-0.031) Absolute Neuts (auto) 4.3 K/mm3 (1.3-6.7) Absolute Nucleated RBC 0.000 K/mm3 (0.0-0.012) Nucleated RBC % 0.0 % (0.0-0.2) Syphilis IgG/IgM Ab Negative (Negative) HIV 1&2 Ab/P24 Ag 4thGn Negative (Negative) Blood Type A Positive Antibody Screen Negative Patient hx anesthesia problems: none Family hx anesthesia problems: none Results Review: All pre-operative results and documents have been reviewed as part of the pre-operative evaluation. [facility] Social History Social History Second hand tobacco smoke exposure: No Substance use: current Do You Feel Safe in your Home?: Yes Lack of Transportation: No Lack of Food: Never True Current Housing: I Have Housing Concerned About Future Housing: No Difficulty Paying Gas/Electric Bills: No Difficulty Paying for Meds: No Currently Unemployed: No Education: High School Diploma/GED Difficulty w/ Childcare or Family Care: No Spiritual care concerns: No Exam Day of Procedure 08/17/24 16:08 Patient weight: normal Heart: regular rate and rhythm Lungs: clear to auscultation Airway: Mallampati scale class II Neurological: alert and oriented
--- NOTE | 2024-08-17 18:12 | PM.OBPRVD ---
OB - Vaginal Delivery Note Procedure Delivery date: 08/17/24 Events: Other (Cholestasis of ) Induction method: AROM, Per Misoprostol Protocol and Per Pitocin Protocol Delivery monitor: External FHT and External Uterine Route of delivery: Episiotomy description: None Laceration Description: None Specimen: Yes (Placenta) Quantitative Blood Loss (ml): 300 Anesthesia type: Epidural Disposition: Floor Complications: No immediate complications
[2024-08-17] MEDS: OXYTOCIN 30 UNITS/NS 500 ML 30 UNITS/500 ML BAG 125 UNITS IV CONT (18:32)
[2024-08-17] MEDS: WITCH HAZEL 40 PADS 1 PAD TOPICAL (20:17)
[2024-08-17] MEDS: BENZOCAINE 20% AER SPR (*SP) 56 GM CAN 1 SPRAY TOPICAL (20:17)
[2024-08-18] VITALS: BP 103/61; PULSE 73; RESP 18; TEMP 37; O2SAT 98
[2024-08-18 06:00] LABS: Hematocrit 27.9 % (37.0-47.0); Hemoglobin 9.3 g/dL (12.0-15.0)
[2024-08-18 08:00] VITALS: BP 100/84; PULSE 77; RESP 18; TEMP 36.7; O2SAT 97
[2024-08-18] MEDS: DOCUSATE SODIUM 100 MG CAPSULE PO ×2 (08:46→23:38)
[2024-08-18] MEDS: MULTIVIT/MIN/PREN/FOL AC/IRON TABLET 1 TAB PO (08:46)
[2024-08-18] MEDS: IBUPROFEN 600 MG TABLET PO ×2 (08:46→23:38)
[2024-08-18] MEDS: POLYSACCHARIDE IRON COMPLEX 150 MG CAPSULE PO ×2 (08:46→23:38)
--- NOTE | 2024-08-18 09:44 | P.PNOB_ITS ---
OB - PN: Subj Subjective Date/time seen: 08/18/24 09:44 Patient comments: no complaints, pain well controlled, incisional pain, tolerating diet and flatus present OB - PN: Obj Data Labs 08/18/24 04:42 Labs: Laboratory Results - last 24 hr 08/18/24 04:42 Hgb 9.3 L Hct 27.9 L OB - PN A/P Plan day: 1 Plan: routine care Comments: No problems, routine care Time Spent With Patient Time: Total time spent is greater than 50% in coordination of care (as documented) at patient's floor/unit and/or counseling patient: Exam 2 Const: General: comfortable, no acute distress and alert Resp: Effort & Inspection: normal respiratory effort Auscultation: no crackles, no rales and no rhonchi Cardio: Rate: regular rate Heart sounds: no click, no murmurs and no rubs GI: Inspection: non-distended GI Palp: No Tenderness to palpation present (GI) Auscultation: normal bowel sounds Other: Incision - CDI Extrem: General: normal to inspection, no pedal edema and no calf tenderness
--- NOTE | 2024-08-18 10:21 | P.PNAN_ITS ---
Anes-Prog Note L&D Date/Time: 08/18/24 10:21 Comfortable throughout: labor and delivery Neuraxial method: epidural Epidural/Spinal procedure site: clean & non-tender Neuro status: Some residual weakness on right leg. Patient states lower back and hips both somewhat painful. Although right leg has some residual weakness she is able to walk on it. I told her its difficult to know the underlying cause whether ep idural, labor, positioning during delivery however regardless of cause should get better in time and to call her PCP if after a few days things worsen or do not improve. Cardiovascular status: normal Respiratory status: normal Airway patency: baseline Mental status: baseline Post-Op hydration status: normal Vital Signs: Last Vital Signs Temp 37.0 C 08/18/24 00:00 Pulse 73 08/18/24 00:00 Resp 18 08/18/24 00:00 BP 103/61 08/18/24 00:00 Pulse Ox 98 08/18/24 00:00 O2 Del Method Room Air 08/17/24 08:24 Pain score (VAS): 2 I/O: Intake & Output 08/17/24 08/18/24 08/18/24 23:59 07:59 15:59 Output Total 375 Balance -375 Post-procedural complaints: none Patient feedback: Patient satisfied with anesthetic care.
[2024-08-18] MEDS: ACETAMINOPHEN 325 MG TABLET 650 MG PO (23:37)
[2024-08-18 23:45] VITALS: BP 116/78; PULSE 66; RESP 16; TEMP 36.9; O2SAT 99
[2024-08-19 07:50] VITALS: BP 107/73; PULSE 76; RESP 18; TEMP 36.9; O2SAT 100
[2024-08-19] MEDS: IBUPROFEN 600 MG TABLET PO (08:09)
[2024-08-19] MEDS: DOCUSATE SODIUM 100 MG CAPSULE PO (08:09)
[2024-08-19] MEDS: POLYSACCHARIDE IRON COMPLEX 150 MG CAPSULE PO (08:09)
[2024-08-19] MEDS: MULTIVIT/MIN/PREN/FOL AC/IRON TABLET 1 TAB PO (08:09)
--- NOTE | 2024-08-19 08:26 | P.PNOB_ITS ---
OB - PN: Subj Subjective Date/time seen: 08/19/24 08:26 Patient comments: no complaints, pain well controlled and tolerating diet OB - PN: Obj Data Labs 08/18/24 04:42 OB - PN A/P Plan day: 2 Plan: routine care and discharge home Time Spent With Patient Time: Total time spent is greater than 50% in coordination of care (as documented) at patient's floor/unit and/or counseling patient: Exam 2 Const: General: comfortable and no acute distress Resp: Effort & Inspection: normal respiratory effort Auscultation: no rales, no rhonchi and no wheezes Cardio: Rate: regular rate Heart sounds: no click, no murmurs and no rubs GI: GI Palp: Yes Soft to palpation and No Tenderness to palpation present (GI) Auscultation: normal bowel sounds Extrem: General: normal to inspection, no pedal edema and no calf tenderness
--- NOTE | 2024-08-19 08:28 | PM.OBDSVD ---
DS: Admitting Diagnosis Discharge Date 08/19/24 Admitting Diagnosis term DS: Discharge Diagnosis Discharge Diagnosis (1) Term delivered: Code(s): O80 - Encounter for full-term uncomplicated delivery Status: Acute OB - DS: Summary OB Procedures : None OB Procedures Intrapartum: Spontaneous Vag Delivery OB Procedures: : None Peripartum Data Laceration Description: None Episiotomy description: None Time Spent with Patient Time attestation: Total time spent providing and/or coordinating discharge services: Discharge Plan Discharge Discharging Clinician: Rupesh Thomas Patient Disposition: Home Activity: pelvic rest Diet: regular Patient Instructions: Antibiotic Form Patient Language: Upper Sorbian Stand Alone Forms: General Discharge Information Follow-up/Referrals: Rupesh Thomas MD [Physician] - Discharge Medications: Continued PNV cmb#95-ferrous fumarate-FA [] 28 mg iron- 800 mcg tablet 1 tablet PO DAILY nitrofurantoin monohyd/m-cryst [Macrobid] 100 mg capsule 100 mg PO Q12H 7 Days Qty: 14 0RF Rx Instructions: must administer with a meal/food acetaminophen [Aminofen] 325 mg tablet 325 mg PO Q6H PRN (Reason: headache) Discontinued nifedipine 60 mg tablet extended release 60 mg PO DAILY Qty: 15 0RF No Action ursodiol 300 mg capsule 300 mg PO Q12H Date of admission: 08/17/24 06:34 Primary Care Provider: PHYSICIAN,DIESEL TECHNICIAN Admitting Provider: Rupesh Thomas Attending physician on admission: Rupesh Thomas Condition: Stable
--- NOTE | 2024-08-19 11:12 | PCCCNOTE ---
Consult received for other. Spoke with PHI Byrne who reported pt. has some social issues and police was called on the father for acting up. Pt. is + for THC and awaiting cord results. Baby was jittery yesterday, but appears better today and was born at 37 weeks. Spoke with mother who reported she lives in [place] with her daughter Pamela (06/04/2019) and father of baby boy Jerad Luz/Floyd?. They recently moved from [place]. Mother confirmed she had a prior DCFS case in [place] due to THC use; however, reported no issue came of it. Mother reported the issue with baby's father actually involved her daughter Pamela. Bert's mother August (unsure of last name) was taking care of Pamela; however, August was drunk and police were called. Mother reported no current concerns at this time as Bert is with Pamela currently. Mother reported she has no other history of drug or alcohol use only THC. Mother aware waiting on cord results. Mother given /WIC resources along with substance abuse and counseling resources. Call placed to DCFS due to prior DCFS case. Intake number [id number], spoke with Shahla Whalen who confirmed their will be no active investigation. Mother and baby to discharge home today per PHI Yusuf. No other concerns at this time.
--- NOTE | 2024-08-19 11:15 | PC.NURSE ---
Consulted with mother concerning needs and she shared her ability to independently latch infant optimally without pain. Mother is feeding appropriately for growth of infant and understands stimulating to eat if needed. Infant has had appropriate feedings in the last 24 hours meets the outcomes for weight, output, blood sugar and jaundice at this time. She is supplementing with formula and pumping per her choice. Reinforced understanding of prevention/relief of engorgement, plugged ducts, mastitis, community resources ([facility] referral faxed to [place] office), and when to call a provider using the resource of the feeding sheet along with the mom and baby guide. Mother voiced understanding of the information shared, is confident to continue effectively her at home, when to call for assistance, denies any additional assistance or education at this time. Reported to the Primary RN.
--- NOTE | 2024-08-19 11:19 | PC.NURSE ---
Patient instructed on viewing the discharge video Mother & Baby Care, The First Two Weeks . Patient was given the opportunity and encouraged to ask questions. Patient verbalized understanding of information shared and has been given the mother/baby guide for home reference.
== END 2024-08-19 13:35 | disposition home or self-care (01) | DRG 807 ==
LOC: ANHLDR 06:38 → ANHOB2 21:12
PROVIDERS: Admitting Provider Obstetrics & Gynecology; Visit Provider Obstetrics & Gynecology
DX: O26.643 Intrahepatic cholestasis of pregnancy, third trimester (principal); Z37.0 Single live birth; O69.81X0 Labor and delivery complicated by cord around neck, without compression, not applicable or unspecified; Z3A.37 37 weeks gestation of pregnancy
CPT/HCPCS: 36415; 85014; 85018; 85025; 86593; 86703; 86850; 86900; 86901; 88307; A9270; G0432; J0290; J2590; J2795; J7120